=== PATIENT | female | born 1965 | race Caucasian/White ===

== ENCOUNTER 2016-08-21 14:09 | Emergency (ER) | payer BC ==
[~2016-08-21] VITALS: Ht 163.8 cm; Wt 140.8 kg
[~2016-08-21 14:09] MED LIST: ACET-1256 PO; DICL1GEL34 TOP; TRAM-10 PO
[2016-08-21 14:11] VITALS: TEMP 36.7; Ht 163.8 cm; Wt 140.8 kg
[2016-08-21] MEDS ORDERED: MoRPHine SULFATE 4 MG/ML 1 ML CARP\\VIAL IV STA (14:47)
[2016-08-21] MEDS ORDERED: ONDANSETRON INJ 2 MG/ML 2 ML VIAL IV STA (14:47)
[2016-08-21 15:08] LABS: BASO % 0.3 %; BASO ABS # 0.02 K/uL (0-0.2); COMPLETE YES; EOS % 1.1 %; HEMATOCRIT 39.2 % (37-47); IG% 0.1 %; LYMPH % 20.7 %; LYMPH ABS # 1.46 K/uL (1.2-3.4); MEAN CORPUSCULAR HEMOGLOBIN 29.2 pg (25-34); MEAN CORPUSCULAR HGB CONC 33.9 g/dl (32-36); MEAN PLATELET VOLUME 10.1 fL (7.4-10.4); MONO % 7.2 %; NEUT % 70.6 %; PLATELET COUNT 297 K/uL (130-400); RED BLOOD COUNT 4.56 M/uL (4.2-5.4); WHITE BLOOD COUNT 7.04 K/uL (4.8-10.8)
[2016-08-21 15:26] LABS: BUN/CREATININE RATIO 16.1 (10-20); CALCIUM 8.6 mg/dl (8.5-10.1); CREATININE 0.89 mg/dl (0.60-1.20); POTASSIUM 3.9 mmol/L (3.5-5.1)
[2016-08-21 15:30] LABS: PARTIAL THROMBOPLASTIN RATIO 0.9; PROTHROMBIN TIME (PATIENT) 10.4 SECONDS (9.0-12.0)
[2016-08-21] MEDS ORDERED: IRBE-37 PO (15:41)
--- NOTE | 2016-08-21 15:41 | DIAGNOSTIC IMAGING REPORT ---
LEFT LOWER EXTREMITY VENOUS DOPPLER CLINICAL HISTORY: Left calf pain status post knee surgery. COMPARISON STUDY: No previous studies for comparison. TECHNIQUE: Sonography of the deep venous system of the left lower extremity was performed. Compression and augmentation were evaluated. FINDINGS: The left common femoral, superficial femoral and popliteal veins were compressible. Augmentation was normal. Flow was shown within the deep calf vessels. This exam was compromised by suboptimal penetration. IMPRESSION: No evidence of deep venous thrombus within the left lower extremity although exam compromised by suboptimal penetration. Electronically signed by: Niels Henry M.D. 08/21/2016 3:40 PM Dictated Date/Time: 08/21/2016 3:39 PM
--- NOTE | 2016-08-21 15:52 | DIAGNOSTIC IMAGING REPORT ---
LEFT TIBIA/FIBULA 2 VIEWS ROUTINE CLINICAL HISTORY: L calf pain COMPARISON: None. DISCUSSION: The bones and joint spaces appear intact. There is no evidence of fracture, dislocation or bony disease. Degenerative change medial joint compartment of the left knee. Heel spur IMPRESSION: No acute process. Electronically signed by: Ricardo Mccann M.D. 08/21/2016 3:51 PM Dictated Date/Time: 08/21/2016 3:50 PM
[2016-08-21] MEDS ORDERED: TRAM-10 PO (15:57)
[2016-08-21 16:00] VITALS: BP 145/97; PULSE 92; O2SAT 97
--- NOTE | 2016-08-22 10:45 | EMERGENCY ROOM VISIT NOTE ---
ED Visit Note First contact with patient: 14:28 Chief Complaint: Left calf cramps and pain. History of Present Illness: Ms. King is a 50-year-old white female who ambulates into the ED complaining of left posterior leg pain and cramping. Historically patient reports in May 2016 she had left knee surgery performed to repair a meniscus injury. She reports postoperatively she has been doing well and had no complications from her surgery. She returned to work approximately one week ago and since that time she has been having pain in the gastrocnemius area of her left lower leg. She has been seen by her physical therapist who is been giving massage therapy and recommended that she come to the emergency department for evaluation of DVT. Currently she complains of a cramping pain in the left gastrocnemius. She does report her pain waxes and wanes in intensity. Currently she rates her discomfort 10/10. Her pain is minimally radiating into the popliteal area. Her pain worsens with palpation the gastrocnemius and ambulation. She has not identified any alleviating factors related to the pain. Integument Tylenol without relief of her discomfort. She denies any associated symptoms including fevers, chills, sweats, skin eruptions, skin color changes, recent direct trauma, leg swelling, leg weakness/ numbness/tingling, chest pain, palpitations, shortness of breath, previous clots , claudication. Review of Systems: As noted above in history of present illness. 8 body systems were reviewed and found to be negative as noted above. Past Medical History: As previously noted, hypertension, status post unspecified left shoulder surgery, right wrist surgery and cholecystectomy. Current Medications: Avapro, diclofenac gel, and Tylenol. Allergies to Medications: Patient denies. Social History: Patient is currently employed; she feels safe in her home environment; she denies tobacco and alcohol use. Physical Examination: Vital Signs: Date Time Temp Pulse Resp B/P Pulse Ox O2 Delivery O2 Flow Rate FiO2 08/21/16 16:00 92 20 145/97 97 Room Air 08/21/16 14:11 36.7 97 17 169/89 97 Room Air GENERAL: 50-year-old female in mild distress due to pain, nontoxic-appearing, afebrile and hemodynamically stable. NEUROLOGICAL: Awake, alert and oriented to person, place and time. Answering questions appropriately and following commands. Normal gait. Good hand eye coordination. No focal motor or sensory deficits. SKIN: Warm, dry and pink. No soft tissue eruptions or trauma noted. HEENT: Atraumatic and normocephalic. THORAX: Lungs sounds are clear to auscultation and equal bilaterally with symmetrical chest wall. No wheezing, rales or rhonchi. No crepitus, tenderness , subcutaneous air or deformities noted. HEART: Regular rate and rhythm. No gallops, rubs or murmurs are appreciated. LEFT LOWER EXTREMITY: No gross bony deformity. No shortening or malrotation. No tenderness in the hip, thigh, anterior/lateral/medial aspects of the knee. Mild tenderness in the popliteal area. Moderate tenderness throughout the proximal gastrocnemius to the level of the Achilles tendon. No tenderness throughout the ankle or foot. Full range of motion in flexion and extension of the knee and plantar flexion and dorsiflexion of the ankle. No dependent edema. No calf tenderness or cords. The foot was warm and pink and capillary refill is brisk. She is able to distinguish light sensations through all dermatomes of the leg and foot. ED Course: Patient is assessed as noted above. Laboratory Testing: Test 08/21/16 14:55 Range/Units White Blood Count 7.04 4.8-10.8 K/uL Red Blood Count 4.56 4.2-5.4 M/uL Hemoglobin 13.3 12.0-16.0 g/dL Hematocrit 39.2 37-47 % Mean Corpuscular Volume 86.0 80-100 fL Mean Corpuscular Hemoglobin 29.2 25-34 pg Mean Corpuscular Hemoglobin Concent 33.9 32-36 g/dl Platelet Count 297 130-400 K/uL Mean Platelet Volume 10.1 7.4-10.4 fL Neutrophils (%) (Auto) 70.6 % Lymphocytes (%) (Auto) 20.7 % Monocytes (%) (Auto) 7.2 % Eosinophils (%) (Auto) 1.1 % Basophils (%) (Auto) 0.3 % Neutrophils # (Auto) 4.96 1.4-6.5 K/uL Lymphocytes # (Auto) 1.46 1.2-3.4 K/uL Monocytes # (Auto) 0.51 0.11-0.59 K/uL Eosinophils # (Auto) 0.08 0-0.5 K/uL Basophils # (Auto) 0.02 0-0.2 K/uL RDW Standard Deviation 48.4 36.4-46.3 fL RDW Coefficient of Variation 15.3 11.5-14.5 % Immature Granulocyte % (Auto) 0.1 % Immature Granulocyte # (Auto) 0.01 0.00-0.02 K/uL Prothrombin Time 10.4 9.0-12.0 SECONDS Prothromb Time International Ratio 1.0 0.9-1.1 Activated Partial Thromboplast Time 24.6 21.0-31.0 SECONDS Partial Thromboplastin Ratio 0.9 Sodium Level 141 136-145 mmol/L Potassium Level 3.9 3.5-5.1 mmol/L Chloride Level 109 98-107 mmol/L Carbon Dioxide Level 21 21-32 mmol/L Anion Gap 11.0 3-11 mmol/L Blood Urea Nitrogen 14 7-18 mg/dl Creatinine 0.89 0.60-1.20 mg/dl Est Creatinine Clear Calc Drug Dose 106.0 ml/min Estimated GFR () 87.0 Estimated GFR (Non- 75.0 BUN/Creatinine Ratio 16.1 10-20 Random Glucose 93 70-99 mg/dl Calcium Level 8.6 8.5-10.1 mg/dl Total Bilirubin 0.4 0.2-1 mg/dl Direct Bilirubin 0.1 0-0.2 mg/dl Aspartate Amino Transf (AST/SGOT) 20 15-37 U/L Alanine Aminotransferase (ALT/SGPT) 25 12-78 U/L Alkaline Phosphatase 91 45-117 U/L Total Protein 7.7 6.4-8.2 gm/dl Albumin 3.7 3.4-5.0 gm/dl Left Lower Leg X-Rays: Were read by myself and the radiologist showing no acute fractures or dislocations. No bony disease. Degenerative changes of the medial joint compartment of the knee. Left Lower Extremity Venous Doppler Ultrasound: Was reviewed by myself and the radiologist showing no evidence of deep vein thrombus although he felt the study was suboptimal because of penetration. An IV lock was initiated and patient received 4 mg of morphine IV for pain and 4 mg of Zofran IV. Patient was reassessed multiple times during her stay in the emergency department. Patient's case was reviewed with Dr. Avalos; we agreed on diagnostic approach, treatment, disposition and plan. Patient was offered splinting, crutches and/or walker use and refused. Patient was educated about tonight's findings and instructed on her treatment plan; she verbalizes understanding and agreement with this plan. Clinical Impression: Left lower leg pain. Decision-Making: Initially my differential diagnosis I considered deep vein thrombus, fracture, abnormal bony growth, deconditioning and other causes. Disposition: Patient discharged home in stable condition accompanied by her mother; prior to departure she was reassessed and subjectively reported she was feeling better and rated her discomfort 3/10. Plan: Patient was prescribed Ultram 50 mg every 6 hours as needed for pain. Patient was encouraged to rest as much as possible. Patient was encouraged to call her orthopedic physician for follow-up care and treatment. Patient was encouraged return the ED for worsening pain, uncontrolled swelling, skin redness, fevers, leg weakness/numbness/tingling or any new/concerning symptoms.
== END 2016-08-21 16:08 | disposition home or self-care (01) ==
LOC: C.EDB 14:10 → C.EDD 16:08
DX: R25.2 Cramp and spasm (principal); M79.605 Pain in left leg; I10 Essential (primary) hypertension

== ENCOUNTER 2017-02-12 02:54 | Observation (INO) | payer BC ==
[~2017-02-12] VITALS: Ht 162.6 cm; Wt 142.5 kg
[~2017-02-12 02:54] MED LIST changes: +IRBE-37 PO
--- NOTE | 2017-02-12 03:24 | EMERGENCY ROOM VISIT NOTE ---
History Report prepared by Sangita: Luis Hancock Under the Supervision of: Dr. Gina Marx D.O. First contact with patient: 02:58 Chief Complaint: CARDIAC ASSESSMENT Stated Complaint: CARDIAC SYMPTOMS History of Present Illness The patient is a 51 year old female who presents to the Emergency Room with complaints of waning, left arm numbness and tingling and left-sided chest tightness that occurred prior to arrival. She currently rates her discomfort a 3 /10 in severity. 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 She reports that she was cleaning bathrooms and denies heavy lifting. The patient notes that as she was cleaning, her left arm started to go numb and tingle. She states that her discomfort then spread into her chest, and it began to feel tight. The patient reports that she did become short of breath, but she does not know if she experienced diaphoresis because she is always sweating. The patient notes that she has had similar symptoms years ago, and she was told it was an anxiety attack. She reports that she had a stress test completed years ago. The patient states that she has nothing at home that is causing her to have increased anxiety. She reports that her uncle of an RI at the age of 53. The patient notes that she does not have her cholesterol checked regularly, but she does take blood pressure medication and a baby aspirin daily. She states that she took her medication today. Nursing notes state the patient received 3 aspirins en route to the hospital. She reports that her discomfort has decreased since she has been at the hospital. The patient denies being sick within the last week. Source of History: patient Onset: prior to arrival Position: chest (left), arm (left) Symptom Intensity: 3/10 Quality: tingling (arm), numbness (arm), other (tightness - chest) Timing: other (waning) Associated Symptoms: + SOB Review of Systems See HPI for pertinent positives & negatives. A total of 10 systems reviewed and were otherwise negative. Past Medical & Surgical Medical Problems: (1) Chest pain (2) HTN (hypertension) (3) Kidney stone Surgical Problems: (1) Hernia (2) History of cholecystectomy Family History Cancer Hypertension Kidney disease Kidney stones Social History Smoking Status: Never Smoker Smokeless Tobacco Use: No Alcohol Use: occasionally Marital Status: single Housing Status: lives with family Occupation Status: employed Current/Historical Medications Scheduled Aspirin (Prema Aspirin Ec Low Dose), 1 TAB PO DAILY Irbesartan (Avapro), 150 MG PO QAM Allergies Coded Allergies: No Known Allergies (Verified , 06/10/16) Physical Exam Vital Signs Date Time Temp Pulse Resp B/P (MAP) Pulse Ox O2 Delivery O2 Flow Rate FiO2 02/12/17 04:23 91 19 106/55 97 Room Air 02/12/17 04:08 87 17 124/63 97 Room Air 02/12/17 03:22 36.8 97 25 134/96 100 Room Air 02/12/17 03:22 99 Room Air 02/12/17 03:10 100 Room Air 02/12/17 03:10 99 27 121/91 98 Room Air 02/12/17 03:02 105 Physical Exam General: Obese female who is tearful on exam. HEENT: Head - normocephalic and atraumatic Pupils are equal, round, and reactive to light. Extraocular eye muscles are intact, and sclera are anicteric. Nose - moist nasal mucosa without discharge. Mouth - moist buccal mucosa. Oropharynx is nonerythematous and there is no tonsillar exudate or edema noted. Neck: Supple; no JVD, nuchal rigidity, cervical lymphadenopathy, or auscultated bruits. Heart: Regular rate and rhythm. There is a normal S1 and S2 with no murmurs, clicks, or gallops appreciated. Heart sounds are distant secondary to body habitus. Lungs: Clear to auscultation bilaterally with no wheezes, rales, or rhonchi. Abdomen: Soft, completely nontender, nondistended, with good bowel sounds. There are no palpable pulsatile masses or hepatosplenomegaly. There is no guarding, rigidity, or rebound noted. Extremities: No evidence of cyanosis, clubbing, or edema. There are easily palpable peripheral pulses. Skin: warm and dry with good turgor and no rashes. Medical Decision & Procedures ER Provider Diagnostic Interpretation: X-ray results as stated below per interpretation by me: Chest One View: Borderline cardiomegaly, no pleural effusion, no cardio infiltrate Laboratory Results 02/12/17 02:50 Red Blood Count 4.57, Mean Corpuscular Volume 87.7, Mean Corpuscular Hemoglobin 28.9, Mean Corpuscular Hemoglobin Concent 32.9, Mean Platelet Volume 10.3, Neutrophils (%) (Auto) 63.8, Lymphocytes (%) (Auto) 24.1, Monocytes (%) (Auto) 8.1, Eosinophils (%) (Auto) 3.6, Basophils (%) (Auto) 0.3, Neutrophils # (Auto) 4.55, Lymphocytes # (Auto) 1.72, Monocytes # (Auto) 0.58, Eosinophils # (Auto) 0.26, Basophils # (Auto) 0.02 02/12/17 02:50 Test 02/12/17 02:50 White Blood Count 7.14 K/uL (4.8-10.8) Red Blood Count 4.57 M/uL (4.2-5.4) Hemoglobin 13.2 g/dL (12.0-16.0) Hematocrit 40.1 % (37-47) Mean Corpuscular Volume 87.7 fL (80-100) Mean Corpuscular Hemoglobin 28.9 pg (25-34) Mean Corpuscular Hemoglobin Concent 32.9 g/dl (32-36) Platelet Count 299 K/uL (130-400) Mean Platelet Volume 10.3 fL (7.4-10.4) Neutrophils (%) (Auto) 63.8 % Lymphocytes (%) (Auto) 24.1 % Monocytes (%) (Auto) 8.1 % Eosinophils (%) (Auto) 3.6 % Basophils (%) (Auto) 0.3 % Neutrophils # (Auto) 4.55 K/uL (1.4-6.5) Lymphocytes # (Auto) 1.72 K/uL (1.2-3.4) Monocytes # (Auto) 0.58 K/uL (0.11-0.59) Eosinophils # (Auto) 0.26 K/uL (0-0.5) Basophils # (Auto) 0.02 K/uL (0-0.2) RDW Standard Deviation 49.7 fL (36.4-46.3) RDW Coefficient of Variation 15.5 % (11.5-14.5) Immature Granulocyte % (Auto) 0.1 % Immature Granulocyte # (Auto) 0.01 K/uL (0.00-0.02) Anion Gap 5.0 mmol/L (3-11) Est Creatinine Clear Calc Drug Dose 101.4 ml/min Estimated GFR () 80.8 Estimated GFR (Non- 69.8 BUN/Creatinine Ratio 16.1 (10-20) Calcium Level 8.2 mg/dl (8.5-10.1) Total Bilirubin 0.2 mg/dl (0.2-1) Aspartate Amino Transf (AST/SGOT) 14 U/L (15-37) Alanine Aminotransferase (ALT/SGPT) 24 U/L (12-78) Alkaline Phosphatase 87 U/L (45-117) Total Creatine Kinase 100 U/L (26-192) Creatine Kinase MB 1.1 ng/ml (0.5-3.6) Creatine Kinase MB Ratio 1.1 (0-3.0) Troponin I < 0.015 ng/ml (0-0.045) Total Protein 7.7 gm/dl (6.4-8.2) Albumin 3.3 gm/dl (3.4-5.0) Globulin 4.4 gm/dl (2.5-4.0) Albumin/Globulin Ratio 0.7 (0.9-2) Thyroid Stimulating Hormone (TSH) 1.680 uIu/ml (0.300-4.500) Laboratory results per my review. Medications Administered Medications (Trade) Dose Ordered Sig/Yael Route Start Time Stop Time Status Last Admin Dose Admin Nitroglycerin (Nitrostat Tab) 0.4 mg Q5M STAT SL 02/12/17 03:40 02/12/17 03:41 DC 02/12/17 03:48 0.4 MG Procedure 0340: Ordered Nitroglycerin 0.4 mg SL. Repeat as needed. Hold with blood pressure below 100. ECG Indication: chest pain Rate (beats per minute): 103 Rhythm: sinus tachycardia Findings: ST depression (Inferior and lateral), no ectopy Comparison ECG Date: 06/03/16 Change: no significant change ED Course 0313: The patient was evaluated in room B06. A complete history and physical examination were performed. Nursing notes and previous electronic medical records were reviewed. IV lock was established and labs were drawn as above. The patient had a twelve-lead EKG as described above. She had a portable chest x-ray. 0340: Ordered Nitroglycerin 0.4 mg SL. The patient continued to rate her pain as a 3/4. She was given a second sublingual nitroglycerin 0438: I reevaluated the patient, and she states her pain is still a 1-2/10 in severity. She reports that it is much better than when she arrived. I discussed findings and results with the patient. She verbalized agreement of the treatment plan. 0448: I spoke with Dr. Ortiz of the [facility] Hospitalist Service. The patient will be evaluated for further management and care. Medical Decision The patient is a 51 year old female who presents to the ED with left arm numbness and tingling and chest tightness. Differential diagnosis includes STEMI , ACS, GERD, anxiety. Lab results show: no leukocytosis, stable H&H, Normal renal function, Normal glucose, Normal TSH and LFTs, negative cardiac enzymes The patient does have some risk factors for heart disease. She is obese with uncontrolled hypertension and a family history of heart disease. She does not routinely have her cholesterol levels checked. She developed chest discomfort with exertion while at work. The discomfort seemed to decrease with rest and subsided with nitroglycerin. The patient describes having previous cardiac stress testing one in 10 years ago. I discussed the case with the [facility] Hospitalist and they will evaluate for further management. Consults Time Called: [phone] Consulting Physician: Dr. Ortiz, [facility] Hospitalist Returned Call: [phone] Ortiz of the [facility] Hospitalist Service. The patient will be evaluated for further management and care. Impression Primary Impression: Left sided chest pain Scribe Attestation The scribe's documentation has been prepared under my direction and personally reviewed by me in its entirety. I confirm that the note above accurately reflects all work, treatment, procedures, and medical decision making performed by me. Departure Information Dispostion Being Evaluated By Hospitalist Referrals Pierre Torres M.D. (PCP) Patient Instructions My [facility]
[2017-02-12 03:32] LABS: BASO % 0.3 %; BASO ABS # 0.02 K/uL (0-0.2); COMPLETE YES; EOS % 3.6 %; HEMATOCRIT 40.1 % (37-47); IG% 0.1 %; LYMPH % 24.1 %; LYMPH ABS # 1.72 K/uL (1.2-3.4); MEAN CELL VOLUME 87.7 fL (80-100); MEAN CORPUSCULAR HEMOGLOBIN 28.9 pg (25-34); MEAN CORPUSCULAR HGB CONC 32.9 g/dl (32-36); MEAN PLATELET VOLUME 10.3 fL (7.4-10.4); MONO % 8.1 %; NEUT % 63.8 %; PLATELET COUNT 299 K/uL (130-400); RED BLOOD COUNT 4.57 M/uL (4.2-5.4); WHITE BLOOD COUNT 7.14 K/uL (4.8-10.8)
[2017-02-12] MEDS ORDERED: NITROGLYCERIN 0.4 MG SL PER TAB CHARGE SL STA (03:40)
[2017-02-12 03:53] LABS: ALT/SGPT 24 U/L (12-78); AST/SGOT 14 U/L (15-37); BLOOD UREA NITROGEN 15 mg/dl (7-18); BUN/CREATININE RATIO 16.1 (10-20); CALCIUM 8.2 mg/dl (8.5-10.1); CARBON DIOXIDE 24 mmol/L (21-32); CHLORIDE 113 mmol/L (98-107); CREATININE 0.94 mg/dl (0.60-1.20); GLUCOSE 87 mg/dl (70-99); POTASSIUM 3.6 mmol/L (3.5-5.1); SODIUM 142 mmol/L (136-145)
[2017-02-12 04:03] LABS: ALB/GLOB RATIO 0.7 (0.9-2); ALKALINE PHOSPHATASE 87 U/L (45-117); CKMB/CK RATIO 1.1 (0-3.0)
[2017-02-12] MEDS ORDERED: ASPI1TAB2 PO (04:17)
--- NOTE | 2017-02-12 04:56 | History and Physical ---
History & Physical Date & Time of Service: Feb 12, 2017 at 04:51 Chief Complaint: Cardiac Symptoms Primary Care Physician: Pierre Torres M.D. History of Present Illness Source: patient 51 y/o F Hx obesity, HTN. Presents with CP which began as paresthesias in her L arm followed by central and L chest pain. This occurred while she was working overnight. She had accompanying SOB - denies N/V, diaphoresis. Past Medical/Surgical History Medical Problems: (1) HTN (hypertension) Status: Chronic (2) Kidney stone Status: Resolved Family History Cancer Hypertension Kidney disease Kidney stones Maternal uncle with CAD/LA Social History Smoking Status: Never Smoker Smokeless Tobacco Use: No Marital Status: single Occupational Status: employed Immunizations History of Influenza Vaccine: No History of Tetanus Vaccine?: Yes Tetanus Immunization Date: November 07, 2005 History of Pneumococcal: No History of Hepatitis B Vaccine: No Multi-Drug Resistant Organisms History of MDRO: No Allergies Coded Allergies: No Known Allergies (Verified , 06/10/16) Home Medications Scheduled Aspirin (Prema Aspirin Ec Low Dose), 1 TAB PO DAILY Irbesartan (Avapro), 150 MG PO QAM Review of Systems Constitutional: No fever, No chills, No sweats Eyes: No worsening of vision ENT: No hearing loss Respiratory: No cough, No wheezing Cardiovascular: + chest pain, No orthopnea, No PND Abdomen: No pain, No nausea, No vomiting Musculoskeletal: No joint pain Genitourinary - Female: No dysuria, No urinary frequency, No urinary urgency Neurologic: No memory loss, No paralysis, No weakness Psychiatric: No depression symptoms Endocrine: No fatigue Hematologic / Lymphatic: No abnormal bleeding/bruising Integumentary: No rash Allergic / Immunologic: No environmental allergies Physical Exam Vital Signs Date Time Temp Pulse Resp B/P (MAP) Pulse Ox O2 Delivery O2 Flow Rate FiO2 02/12/17 04:23 91 19 106/55 97 Room Air 02/12/17 04:08 87 17 124/63 97 Room Air 02/12/17 03:22 36.8 97 25 134/96 100 Room Air 02/12/17 03:22 99 Room Air 02/12/17 03:10 100 Room Air 02/12/17 03:10 99 27 121/91 98 Room Air 02/12/17 03:02 105 General Appearance: WD/WN, no apparent distress, + obese Head: normocephalic Eyes: normal inspection ENT: normal ENT inspection, pharynx normal Neck: supple Respiratory/Chest: chest non-tender, lungs clear Cardiovascular: regular rate, rhythm, no edema, no gallop Abdomen/GI: normal bowel sounds, non tender, soft Back: normal inspection, no CVA tenderness, no muscle spasm, normal range of motion Extremities/Musculoskelatal: normal inspection, no calf tenderness, normal capillary refill, no pedal edema, normal range of motion Neurologic/Psych: bit shaver II-XII nml as tested, no motor/sensory deficits, alert, normal mood/affect, normal reflexes, oriented x 3 Skin: normal color, warm/dry, no rash Diagnostics Laboratory Results Results Past 24 Hours Test 02/12/17 02:50 Range/Units White Blood Count 7.14 4.8-10.8 K/uL Red Blood Count 4.57 4.2-5.4 M/uL Hemoglobin 13.2 12.0-16.0 g/dL Hematocrit 40.1 37-47 % Mean Corpuscular Volume 87.7 80-100 fL Mean Corpuscular Hemoglobin 28.9 25-34 pg Mean Corpuscular Hemoglobin Concent 32.9 32-36 g/dl Platelet Count 299 130-400 K/uL Mean Platelet Volume 10.3 7.4-10.4 fL Neutrophils (%) (Auto) 63.8 % Lymphocytes (%) (Auto) 24.1 % Monocytes (%) (Auto) 8.1 % Eosinophils (%) (Auto) 3.6 % Basophils (%) (Auto) 0.3 % Neutrophils # (Auto) 4.55 1.4-6.5 K/uL Lymphocytes # (Auto) 1.72 1.2-3.4 K/uL Monocytes # (Auto) 0.58 0.11-0.59 K/uL Eosinophils # (Auto) 0.26 0-0.5 K/uL Basophils # (Auto) 0.02 0-0.2 K/uL RDW Standard Deviation 49.7 36.4-46.3 fL RDW Coefficient of Variation 15.5 11.5-14.5 % Immature Granulocyte % (Auto) 0.1 % Immature Granulocyte # (Auto) 0.01 0.00-0.02 K/uL Sodium Level 142 136-145 mmol/L Potassium Level 3.6 3.5-5.1 mmol/L Chloride Level 113 98-107 mmol/L Carbon Dioxide Level 24 21-32 mmol/L Anion Gap 5.0 3-11 mmol/L Blood Urea Nitrogen 15 7-18 mg/dl Creatinine 0.94 0.60-1.20 mg/dl Est Creatinine Clear Calc Drug Dose 101.4 ml/min Estimated GFR () 80.8 Estimated GFR (Non- 69.8 BUN/Creatinine Ratio 16.1 10-20 Random Glucose 87 70-99 mg/dl Calcium Level 8.2 8.5-10.1 mg/dl Total Bilirubin 0.2 0.2-1 mg/dl Aspartate Amino Transf (AST/SGOT) 14 15-37 U/L Alanine Aminotransferase (ALT/SGPT) 24 12-78 U/L Alkaline Phosphatase 87 45-117 U/L Total Creatine Kinase 100 26-192 U/L Creatine Kinase MB 1.1 0.5-3.6 ng/ml Creatine Kinase MB Ratio 1.1 0-3.0 Troponin I < 0.015 0-0.045 ng/ml Total Protein 7.7 6.4-8.2 gm/dl Albumin 3.3 3.4-5.0 gm/dl Globulin 4.4 2.5-4.0 gm/dl Albumin/Globulin Ratio 0.7 0.9-2 Thyroid Stimulating Hormone (TSH) 1.680 0.300-4.500 uIu/ml EKG Sinus tach at 100BPM - no acute ischemic changes Impression Assessment and Plan 51 y/o F Hx obesity, HTN. Presents with CP which began as paresthesias in her L arm followed by central and L chest pain. This occurred while she was working overnight. She had accompanying SOB - denies N/V, diaphoresis. 1) CP - pt admitted to telemetry - will obtain serial enzymes - will obtain a Ddimer as she is tachycardic- provided with ASA, statin and low-dose B juan david 2) HTN - cont ARB - B juan david added 3) Pt is morbidly obese and would benefit from nutritional counseling Full code - Heparin prophylaxis Total time for this admit including reviews of labs, meds, EKG, records - discussion with pt and ER attending - 33 min Level of Care Telemetry Resuscitation Status FULL RESUSCITATION VTE Prophylaxis VTE Risk Assessment Done? Y/N: Yes Risk Level: Low Given or contraindicated: Unfractionated heparin SQ
[2017-02-12] MEDS ORDERED: MoRPHine SULFATE 2 MG/ML CARP IV PRN (05:00)
[2017-02-12] MEDS ORDERED: ACETAMINOPHEN 325 MG TAB PO PRN (05:00)
[2017-02-12] MEDS ORDERED: MAGNESIUM HYDROXIDE SUSP 30 ML UDC PO PRN (05:00)
[2017-02-12] MEDS ORDERED: POLYETHYLENE (MIRALAX) 17 GM PACK PO PRN (05:00)
[2017-02-12] MEDS ORDERED: ONDANSETRON INJ 2 MG/ML 2 ML VIAL IV PRN (05:00)
[2017-02-12] MEDS ORDERED: NITROGLYCERIN 0.4 MG SL PER TAB CHARGE SL PRN (05:00)
[2017-02-12] MEDS ORDERED: ALUMINUM/MAGNESIUM/SIMETH (MAALOX MAX) 30 ML UDC PO PRN (05:00)
[2017-02-12 05:25] VITALS: BP 108/77; PULSE 89; TEMP 36.7; O2SAT 97; Ht 162.6 cm; Wt 142.5 kg
[2017-02-12] MEDS ORDERED: IV FLUIDS COMPLETED PRN (05:30)
--- NOTE | 2017-02-12 06:32 | DIAGNOSTIC IMAGING REPORT ---
CHEST ONE VIEW PORTABLE CLINICAL HISTORY: cp dyspnea COMPARISON STUDY: No previous studies for comparison. FINDINGS: Mild cardia megaly. The lungs are clear. Diaphragms are smooth. IMPRESSION: Mild cardiomegaly. The above report was generated using voice recognition software. It may contain grammatical, syntax or spelling errors. Electronically signed by: Ricardo Mccann M.D. 02/12/2017 6:31 AM Dictated Date/Time: 02/12/2017 6:31 AM
[2017-02-12 07:14] VITALS: BP 147/88; PULSE 93; TEMP 36.7; O2SAT 95
[2017-02-12 07:15] LABS: INR 0.9 (0.9-1.1)
[2017-02-12] MEDS: HEPARIN SOD 5000 UNIT/0.5 ML CARP SQ SCH ×2 (08:35→16:57)
[2017-02-12] MEDS ORDERED: ASPIRIN 81 MG ECTAB PO SCH (09:00)
[2017-02-12] MEDS ORDERED: IRBESARTAN 150 MG TAB PO SCH (09:00)
[2017-02-12] MEDS ORDERED: METOPROLOL TARTRATE 25 MG TAB PO SCH (09:00)
[2017-02-12 11:08] VITALS: BP 112/71; PULSE 74; TEMP 36.8; O2SAT 97
[2017-02-12] MEDS ORDERED: ATROPINE SULFATE 0.1 MG/ML 5ML SYR ONE (14:13)
[2017-02-12] MEDS ORDERED: METOPROLOL TARTRATE 1 MG/ML VIAL ONE (14:13)
[2017-02-12] MEDS ORDERED: DOBUTamine HCL 12.5 MG/ML 20 ML VIAL ONE (14:13)
[2017-02-12 15:50] VITALS: BP 122/77; PULSE 80; TEMP 36.6; O2SAT 90
[2017-02-12] MEDS ORDERED: PERFLUTREN LIPID MICROSPHERE (DEFINITY) IV ONE (15:55)
--- NOTE | 2017-02-12 16:28 | Discharge Instructions ---
Discharge Instructions Date of Service Feb 12, 2017. Admission Reason for Admission: Chest Pain Discharge Discharge Diagnosis / Problem: Chest pain, likely related to scar tissue vs thoracic outlet syndrome Discharge Goals Goal(s): Decrease discomfort, Improve function, Increase independence Activity Recommendations Activity Limitations: resume your previous activity . Instructions / Follow-Up Instructions / Follow-Up Dr. Torres in 1-2 weeks if recurring chest or arm pain Your stress test with ECHO was negative, making it less likely that this pain is related to your heart. Current Hospital Diet Patient's current hospital diet: AHA Diet (Heart Healthy) Discharge Diet Recommended Diet: Regular Diet Pending Studies Studies pending at discharge: no Medical Emergencies . Who to Call and When: Medical Emergencies: If at any time you feel your situation is an emergency, please call 911 immediately. . Non-Emergent Contact Non-Emergency issues call your: Primary Care Provider . . "Provider Documentation" section prepared by Adamaris Dietrich. . VTE Core Measure Inpt VTE Proph given/why not?: Unfractionated heparin SQ
--- NOTE | 2017-02-12 16:29 | Discharge Summary ---
Discharge Summary Date of Service Feb 12, 2017. Discharge Summary Admission Date: Feb 12, 2017 at 04:49 Discharge Date: Feb 12, 2017 Discharge Disposition: Home Principal Diagnosis: Chest pain, likely related to scar tissue vs thoracic outlet syndrome Problems/Secondary Diagnoses: HTN Hx of renal stones Morbid obesity Immunizations: Have You Had Influenza Vaccine: No History of Tetanus Vaccine?: Yes Tetanus Immunization Date: November 07, 2005 History of Pneumococcal: No History of Hepatitis B Vaccine: No Procedures: dobutamine stress ECHO 02/12 Medication Reconciliation Continued Medications: Aspirin (Prema Aspirin Ec Low Dose) 81 Mg Tab 1 TAB PO DAILY, 3 Refills Irbesartan (Avapro) 150 Mg Tab 150 MG PO QAM, TAB Discharge Exam Pt is feeling overall improved. She has had no return of chest pain or LUE pain. Has been tolerating PO without issue. Pt denies fever, SOB, chest pain, abd pain, n/v/c/d, LE pain or swelling. Pt states that at onset of pain, she was cleaning at work with her R hand, but not doing anything strenuous. She did feel anxious when this happened, but no SOB, n/v/diaphoresis. Prior to onset she was having a usual day at work without feeling fatigued or otherwise limited. 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 Physical Exam: General Appearance: no apparent distress, + obese Respiratory/Chest: normal breath sounds, no respiratory distress, + pertinent finding (L sided chest pain reproducible in upper lateral quadrant) Cardiovascular: regular rate, rhythm, no edema Abdomen / GI: non tender, soft Extremities: no calf tenderness, no pedal edema Neurologic/Psychiatric: alert, normal mood/affect, oriented x 3 Skin: normal color, warm/dry Hospital Course Per ED H&P: The patient is a 51 year old female who presents to the Emergency Room with complaints of waning, left arm numbness and tingling and left-sided chest tightness that occurred prior to arrival. She currently rates her discomfort a 3/10 in severity. 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 She reports that she was cleaning bathrooms and denies heavy lifting. The patient notes that as she was cleaning, her left arm started to go numb and tingle. She states that her discomfort then spread into her chest, and it began to feel tight. The patient reports that she did become short of breath, but she does not know if she experienced diaphoresis because she is always sweating. The patient notes that she has had similar symptoms years ago, and she was told it was an anxiety attack. She reports that she had a stress test completed years ago. The patient states that she has nothing at home that is causing her to have increased anxiety. She reports that her uncle of an OK at the age of 53. The patient notes that she does not have her cholesterol checked regularly, but she does take blood pressure medication and a baby aspirin daily. She states that she took her medication today. Nursing notes state the patient received 3 aspirins en route to the hospital. She reports that her discomfort has decreased since she has been at the hospital. The patient denies being sick within the last week. Hospital course: Pt denies SOB to me, however did report this to other providers Chest pain: Reproducible on exam, possibly related to scar tissue from prior L shoulder surgery vs thoracic outlet syndrome Trops neg x2 EKG WNL, tele monitor WNL CBC, PRP, TSH, ddimer neg/WNL CXR neg Pt states she could not walk on an incline for stress testing, dobutamine stress ECHO was neg HTN: stable, continue home meds Total Time Spent: Greater than 30 minutes This includes examination of the patient, discharge planning, medication reconciliation, and communication with other providers. Discharge Instructions Please refer to the electronic Patient Visit Report (Discharge Instructions) for additional information. Follow-Up Dr. Torres in 1-2 weeks if recurring chest or arm pain Additional Copies To Pierre Torres M.D.
[2017-02-12 17:06] VITALS: BP 122/77; PULSE 80; TEMP 36.6; O2SAT 90
--- NOTE | 2017-02-12 19:10 | DOBUTAMINE ECHO ---
*NOTICE TO RECEIVING LIBERTARIAN AGENCY This information is strictly Confidential and protected under [place] law. [place] law prohibits you from making any further disclosure of this information unless further disclosure is expressly permitted by the written consent of the person to whom it pertains or is authorized by law. A general authorization for the release of medical or other information is not sufficient for this purpose. Hospital accepts no responsibility if the information is made available to any other person, INCLUDING THE PATIENT. Interpretation Summary * Name: LINDA HARRINGTON Study Date: 02/12/2017 01:13 PM BP: 101/38 mmHg * Patient Location: C.2T\S\S230\S\1 HR: 81 * : 1965 (M/d/yyyy) Gender: Female Height: 64 in * Age: 51 yrs Ethnicity: CA Weight: 314 lb * Ordering Physician: Adamaris Dietrich * Performed By: Kelly Cook * * Reason For Study: CHEST PAIN * BSA: 2.4 m2 * -- Conclusions -- * Dobutamine Stress Echo: * 1. Negative Dobutamine stress echo for ischemia at 84 % MPHR. * 2. Nondiagnostic Dobutamine ECG as target heart rate was not attained. * 3. Appropriate blood pressure response. * 4. No arrhythmia. * 5. Chest pain reported at peak dose. * 6. Technically difficult study, enhanced with IV Definity. * Echo: * 1. Normal left ventricular size and systolic function. EF 60-65%. No regional wall motion abnormalities. No left ventricular hypertrophy. * 2. No significant valvular abnormalities visualized, but valves not well seen. Procedure Details * DOBUTAMINE ECHO, CPT#[id number] * ECHO DOPPLER, CPT #[id number] * ECHO COLOR FLOW, CPT #[id number] * The study was technically difficult with many images being suboptimal in quality. * A contrast injection of Definity was performed to improve assessment of LV function. * Contrast was injected into an intravenous site in the left arm. * One vial of Definity ultrasound contrast was diluted in normal saline to a total volume of 10 ml. A total of '10' ml of solution was administered during imaging. * Lot # [id number] of Definity utilized for procedure. * Expiration date 02/13. * The attending nurse who injected the contrast agent was MARU LEE RN. Left Ventricle * The left ventricle is normal in size. * There is normal left ventricular wall thickness. * Left ventricular systolic function is normal. * Resting wall motion: Normal. Stress wall motion: Appropriate increase in Left ventricular systolic function and decrease in cavity size. No stress induced segmental wall motion abnormalities. * The left ventricular ejection fraction increases normally with stress. The left ventricular end-systolic cavity size reduces post-stress (normal response). The left ventricular wall motion with stress is normal. Right Ventricle * The right ventricle is not well visualized. Atria * The left atrial size is normal. * Right atrium not well visualized. Mitral Valve * The mitral valve is grossly normal. * There is no mitral valve stenosis. * Significant mitral regurgitation is absent. Tricuspid Valve * The tricuspid valve is not well visualized. * There is no tricuspid stenosis. * Significant tricuspid regurgitation is absent. Aortic Valve * The aortic valve is not well visualized. * No hemodynamically significant valvular aortic stenosis. * There is no significant aortic regurgitation. Pulmonic Valve * The pulmonary valve is inadequately visualized, but the Doppler data is adequate for interpretation. * There is no significant pulmonary regurgitation. Great Vessels * The aortic root is normal size. * Ascending aorta of normal dimension * Normal IVC size. Pericardium * There is no pericardial effusion. Stress Parameters * NSR at [address] abnormality. * Stress ECG: No ST changes. No arrhythmias. * No arrhythmia were noted with stress. * The stress portion of this study was personally supervised by the undersigned interpreting physician. * Rest heart rate was '81' BPM. * Rest blood pressure was '101/38' * Maximum heart rate achieved was 142 bpm. * Maximum heart rate was 84 % of maximum age-predicted heart rate. * Maximum blood pressure was '149/75' * Maximum Dobutamine infusion rate was '50' mcg/kg/min. * A total of 0.5 mg of intravenous Atropine was used to supplement Dobutamine for heart rate response. * Dobutamine infusion was terminated due to patient request * A total of 7.5 mg of IV Metoprolol was administered to reverse Dobutamine-induced tachycardia. * Target Heart Rate was not achieved due to chest pain. * The patient exhibited chest pain during the drug infusion. * The drug infusion was stopped due to chest pain. Left Ventricular Diastolic Function * Diastolic dysfunction, Grade II (pseudonormalization pattern). MMode 2D Measurements and Calculations IVSd 1.1 cm IVSs 1.6 cm LVIDd 4.3 cm LVIDs 2.6 cm LVPWd 0.98 cm LVPWs 1.5 cm IVS/LVPW 1.2 FS 38.8 % EDV(Teich) 83.6 ml ESV(Teich) 25.6 ml EF(Teich) 69.4 % EDV(cubed) 80.2 ml ESV(cubed) 18.4 ml EF(cubed) 77.1 % % IVS thick 38.6 % % LVPW thick 52.8 % LV mass(C)d 155.5 grams LV mass(C)dI 65.6 grams/m\S\2 LV mass(C)s 140.9 grams LV mass(C)sI 59.5 grams/m\S\2 SV(Teich) 58.1 ml SI(Teich) 24.5 ml/m\S\2 SV(cubed) 61.8 ml SI(cubed) 26.1 ml/m\S\2 Ao root diam 3.5 cm Ao root area 9.6 cm\S\2 ACS 1.6 cm LA dimension 3.8 cm asc Aorta Diam 3.2 cm LA/Ao 1.1 LVOT diam 2.3 cm LVOT area 4.1 cm\S\2 Doppler Measurements and Calculations MV E max jennifer 90.7 cm/sec MV A max jennifer 87.3 cm/sec MV E/A 1.0 MV dec time 0.25 sec Ao V2 max 125.7 cm/sec Ao max PG 6.3 mmHg Ao max PG (full) 1.6 mmHg YOHANA(V,A) 3.6 cm\S\2 YOHANA(V,D) 3.6 cm\S\2 LV V1 max PG 4.8 mmHg LV V1 max 109.1 cm/sec PA V2 max 90.2 cm/sec PA max PG 3.3 mmHg
== END 2017-02-12 17:56 | disposition home or self-care (01) ==
LOC: EDBD 02:54 → C.EDB 02:58 → C.2T 04:49 → ENRESERV 05:08
PROVIDERS: ADMIT Internal Medicine; ATTEND Family Medicine
DX: R07.9 Chest pain, unspecified (principal); R20.2 Paresthesia of skin; M79.602 Pain in left arm; I10 Essential (primary) hypertension; E66.01 Morbid (severe) obesity due to excess calories

== ENCOUNTER → 2017-05-25 | Day surgery (SDC) | payer BC ==
[2017-05-12 13:49] VITALS: Ht 162.6 cm; Wt 136.4 kg
[~2017-05-25] VITALS: Ht 162.6 cm; Wt 136.4 kg
[~2017-05-25] MED LIST changes: -ACET-1256 PO; -DICL1GEL34 TOP; +FENTANYL CITRATE INJ 50 MCG/1 ML 2 ML VIAL ONE; -IRBE-37 PO; +LIDOCAINE HCL 2% 2 ML VIAL (20MG/ML) ONE; +LISI20TA3 PO; +OMEG10007 PO; +PRLSR20 PO; +PROPOFOL IV EMULSION 10 MG/ML 20 ML VIAL IV ONE; +SODIUM CHLORIDE 0.9% 500ML 500 ML IV ONE; -TRAM-10 PO
--- NOTE | 2017-05-25 12:57 | Endo History and Physical ---
History & Physical Date of Service: May 25, 2017. Chief Complaint: dysphagia Referring Physician: Dr. Julita Porter History of Present Illness dysphagia; mostly solids; #8 wt loss Past Surgical History Hx Cardiac Surgery: No Hx Internal Defibrillator: No Hx Pacemaker: No Hx Abdominal Surgery: Yes (CIARA, HERNIA REPAIR) Hx of Implantable Prosthesis: No Hx Post-Op Nausea and Vomiting: No Hx Cancer Surgery: No Hx Thoracic Surgery: No Hx Orthopedic: Yes (LT SHOULDER, LT MENISCUS REPAIR) Hx Urinary Tract Surgery: Yes (LITHOTRIPSY) Family History None Social History Smoking Status: Never Smoker Hx Substance Use: No Hx Alcohol Use: No Allergies Coded Allergies: No Known Allergies (Verified , 05/12/17) Current Medications Reported Home Medications Medications Dose Route/Sig Max Daily Dose Days Date Category Prilosec (Omeprazole) 20 Mg Capcr 40 Mg PO DAILY 05/25/17 Reported Prinivil (Lisinopril) 20 Mg Tab 20 Mg PO QAM 05/12/17 Reported [place]-3 (Fish Oil) 1 Ea Cap 2 Cap PO BID 05/12/17 Reported Vital Signs Weight (Kilograms): 136.36 Height (Feet): 5 Height (Inches): 4 Date Time Temp Pulse Resp B/P (MAP) Pulse Ox O2 Delivery O2 Flow Rate FiO2 05/25/17 12:36 36.7 90 20 123/70 (87) 98 Room Air Physical Exam General Appearance: WD/WN, no apparent distress Respiratory/Chest: Auscultation: breath sounds normal Cardiovascular: Heart Auscultation: RRR Abdomen: Bowel Sounds: normal Inspection & Palpation: soft, non-distended, no tenderness, guarding & rebound Assessment and Plan EGD with possible bx/dilation as needed yazmin
--- NOTE | 2017-05-25 13:30 | Discharge Instructions ---
Endoscopy Patient Instructions Date / Procedure(s) Performed May 25, 2017. EGD Allergy Information Coded Allergies: No Known Allergies (Verified , 05/12/17) Discharge Date / Findings May 25, 2017. HH; SSBE; esophagitis Medication Instructions Stopped Medication(s): last Fish oil Thursday Restart Stopped Medication(s): Reported Home Medications Medications Dose Route/Sig Max Daily Dose Days Date Category Prilosec (Omeprazole) 20 Mg Capcr 40 Mg PO DAILY 05/25/17 Reported Prinivil (Lisinopril) 20 Mg Tab 20 Mg PO QAM 05/12/17 Reported [place]-3 (Fish Oil) 1 Ea Cap 2 Cap PO BID 05/12/17 Reported Increase Prilosec to 40 mg twice daily for 4 months; repeat EGD in 3 months Reported Home Medications Medications Dose Route/Sig Max Daily Dose Days Date Category Prilosec (Omeprazole) 20 Mg Capcr 40 Mg PO DAILY 05/25/17 Reported Prinivil (Lisinopril) 20 Mg Tab 20 Mg PO QAM 05/12/17 Reported [place]-3 (Fish Oil) 1 Ea Cap 2 Cap PO BID 05/12/17 Reported Increase prilosec to 40mg twice daily for 4 months- repeat EGD in 3 months Provider Instructions Activity Restrictions - No exercising or heavy lifting for 24 hours. - Do not drink alcohol the day of the procedure. - Do not drive a car or operate machinery until the day after the procedure. - Do not make any important decisions or sign important papers in 24 hours after the procedure. Following Day: - Return to full activity which may include returning to work/school. Diet Start your diet with liquids and light foods (jello, soup, juice, toast). Then eat your usual diet if not nauseated. Treatment For Common After Affects For mild abdominal pain, bloating, or excessive gas: - Rest - Eat lightly - Lie on right side Follow-Up Information Follow-up with Dr. Julita Porter as scheduled Anesthesia Information What You Should Know You have had a procedure that required some medicine to reduce anxiety and discomfort. This treatment is called moderate sedation. After receiving the treatment, you may be sleepy, but you will be able to breathe on your own. The effects of the treatment may last for several hours. Follow these instructions along with Activity/Diet recommendations noted above: * Do NOT do anything where dizziness or clumsiness would be dangerous. * Rest quietly at home today, then you can be up and about tomorrow. * Have a responsible person stay with you the rest of today. * You may have had an I.V. today. If so, you may take the dressing off later today. Recommendations Call your doctor if: * Trouble breathing * Continuous vomiting for more than 24 hours * Temperature above 101 degrees * Severe abdominal pain or bloating * Pain not relieved by pain medicine ordered * There is increased drainage or redness from any incision * A large amount of rectal bleeding greater than 2-3 tablespoons. (If you had a polyp/s removed or have hemorrhoids, a small amount of blood - from the rectum is to be expected.) * You have any unanswered questions or concerns. IN THE EVENT OF A SERIOUS EMERGENCY, GO TO THE NEAREST EMERGENCY ROOM Your discharge instructions were prepared by provider Luis Ayala. Patient Instructions Signature Page Benji King Patient (or Guardian) Signature/Date: I have read and understand the instructions given to me by my caregivers. Caregiver/RN/Doctor Signature/Date: The above-named patient and/or guardian has received patient instructions on this date. + Original Patient Signature Page (only) stays with chart. Please make copy for patient.
--- NOTE | 2017-05-25 13:41 | GI REPORT ---
Procedure Date: 05/25/2017 1:10 PM Procedure: Upper GI endoscopy Indications: Esophageal dysphagia Medicines: Propofol per Anesthesia Complications: No immediate complications. Estimated blood loss: Minimal. Estimated Blood Loss: Estimated blood loss was minimal. Procedure: Pre-Anesthesia Assessment: - Prior to the procedure, a History and Physical was performed, and patient medications and allergies were reviewed. The patient's tolerance of previous anesthesia was also reviewed. The risks and benefits of the procedure and the sedation options and risks were discussed with the patient. All questions were answered, and informed consent was obtained. Prior Anticoagulants: The patient has taken no previous anticoagulant or antiplatelet agents. ASA Grade Assessment: III - A patient with severe systemic disease. After reviewing the risks and benefits, the patient was deemed in satisfactory condition to undergo the procedure. After obtaining informed consent, the endoscope was passed under direct vision. Throughout the procedure, the patient's blood pressure, pulse, and oxygen saturations were monitored continuously. The Scope was introduced through the mouth, and advanced to the second part of duodenum. The upper GI endoscopy was accomplished without difficulty. The patient tolerated the procedure well. Findings: The upper third of the esophagus and middle third of the esophagus were normal. LA Grade C (one or more mucosal breaks continuous between tops of 2 or more mucosal folds, less than 75% circumference) esophagitis with no bleeding was found 36 to 37 cm from the incisors. Biopsies were taken with a cold forceps for histology. Estimated blood loss was minimal. Verification of patient identification for the specimen was done by the physician and assembly technician using the patient's name and medical record number. The esophagus and gastroesophageal junction were examined with white light. There were esophageal mucosal changes suggestive of short-segment Gaspar's esophagus. These changes involved the mucosa at the upper extent of the gastric folds (38 cm from the incisors) extending to the Z-line (37 cm from the incisors). Hiatal narrowing was identified at 40 cm. The maximum longitudinal extent of these esophageal mucosal changes was 1 cm in length. Mucosa was biopsied with a cold forceps for histology. Estimated blood loss was minimal. Verification of patient identification for the specimen was done by the physician and assembly technician using the patient's name and medical record number. The entire examined stomach was normal. Retained gastric contents are not identified on this exam. The examined duodenum was normal. The cardia and gastric fundus were normal on retroflexion. Impression: - Normal upper third of esophagus and middle third of esophagus. - LA Grade C reflux esophagitis. Biopsied. 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 Biopsied. - Normal stomach. - Normal examined duodenum. Recommendation: - Discharge patient to home (ambulatory). - Advance diet as tolerated. - Soft diet - advance as tolerated to advance diet as tolerated. - Use Prilosec (omeprazole) 40 mg PO BID for 4 months. - Repeat the upper endoscopy in 3 months to check healing. - Return to referring physician as previously scheduled. MD Luis Gould MD 05/25/2017 1:41:01 PM This report has been signed electronically. Note Initiated On: 05/25/2017 1:10 PM I attest to the content of the Intraoperative Record and orders documented therein, exceptions below
--- NOTE | 2017-05-25 14:01 | Anesthesiology Progress Note ---
Anesthesia Post Op Note Date & Time May 25, 2017 at 14:00 Vital Signs Pain Intensity: 0 Vital Signs Past 12 Hours Date Time Temp Pulse Resp B/P (MAP) Pulse Ox O2 Delivery O2 Flow Rate FiO2 05/25/17 13:50 78 18 114/69 (84) 98 Room Air 05/25/17 13:34 88 18 104/67 (79) 98 Room Air 05/25/17 12:36 36.7 90 20 123/70 (87) 98 Room Air Notes Mental Status: alert / awake / arousable, participated in evaluation Pt Amnestic to Procedure: Yes Nausea / Vomiting: adequately controlled Pain: adequately controlled Airway Patency, RR, SpO2: stable & adequate BP & HR: stable & adequate Hydration State: stable & adequate Anesthetic Complications: no major complications apparent
[2017-05-25 14:03] VITALS: BP 129/76; PULSE 75; O2SAT 100
== END | disposition home or self-care (01) ==
LOC: C.GI 12:00
PROVIDERS: ATTEND Internal Medicine Gastroenterology
DX: R13.10 Dysphagia, unspecified (principal); K21.0 Gastro-esophageal reflux disease with esophagitis; E66.9 Obesity, unspecified; I10 Essential (primary) hypertension; Z90.49 Acquired absence of other specified parts of digestive tract; Z98.890 Other specified postprocedural states; Z68.43 Body mass index [BMI] 50.0-59.9, adult; K20.9 Esophagitis, unspecified

== ENCOUNTER → 2017-08-24 | Day surgery (SDC) | payer OTHER ==
[2017-08-18 08:15] VITALS: BMI 50.0
[~2017-08-24] VITALS: Ht 162.6 cm; Wt 136.4 kg
[~2017-08-24] MED LIST changes: +MIDAZOLAM HCL 1 MG/ML 2ML VIAL ONE
[2017-08-24 08:04] VITALS: Ht 162.6 cm; Wt 136.4 kg
[2017-08-24 08:16] VITALS: TEMP 36.7
--- NOTE | 2017-08-24 08:17 | Endo History and Physical ---
History & Physical Date of Service: Aug 24, 2017. Chief Complaint: ESOPHAGITIS GERD Referring Physician: YASH SMITH History of Present Illness Severe esophagitis, here for EGD to check healing. Mild dysphagia. Past Surgical History Hx Cardiac Surgery: No Hx Internal Defibrillator: No Hx Pacemaker: No Hx Abdominal Surgery: Yes (CIARA, HERNIA REPAIR) Hx of Implantable Prosthesis: No Hx Post-Op Nausea and Vomiting: No Hx Cancer Surgery: No Hx Thoracic Surgery: No Hx Orthopedic: Yes (LT SHOULDER, LT MENISCUS REPAIR) Hx Urinary Tract Surgery: Yes (LITHOTRIPSY) Family History None Social History Smoking Status: Never Smoker Hx Substance Use: No Hx Alcohol Use: No Allergies Coded Allergies: No Known Allergies (Verified , 08/24/17) Current Medications Reported Home Medications Medications Dose Route/Sig Max Daily Dose Days Date Category Prilosec (Omeprazole) 20 Mg Capcr 40 Mg PO QAM 05/25/17 Reported Prinivil (Lisinopril) 20 Mg Tab 20 Mg PO QAM 05/12/17 Reported [place]-3 (Fish Oil) 1 Ea Cap 2 Cap PO BID 05/12/17 Reported Vital Signs Weight (Kilograms): 136.36 Height (Feet): 5 Height (Inches): 4 Physical Exam General Appearance: WD/WN, no apparent distress, + obese Respiratory/Chest: Respiratory effort: no dyspnea Auscultation: breath sounds normal, no rales/crackles Cardiovascular: Heart Auscultation: RRR, no murmurs Assessment and Plan EGD today
--- NOTE | 2017-08-24 08:54 | GI REPORT ---
Procedure Date: 08/24/2017 8:18 AM Procedure: Upper GI endoscopy Indications: Dysphagia, Follow-up of reflux esophagitis Medicines: Propofol per Anesthesia Complications: No immediate complications. Estimated blood loss: None. Estimated Blood Loss: Estimated blood loss: none. Procedure: Pre-Anesthesia Assessment: - Prior to the procedure, a History and Physical was performed, and patient medications, allergies and sensitivities were reviewed. The patient's tolerance of previous anesthesia was reviewed. - ASA Grade Assessment: III - A patient with severe systemic disease. After obtaining informed consent, the endoscope was passed under direct vision. Throughout the procedure, the patient's blood pressure, pulse, and oxygen saturations were monitored continuously. The scope was introduced through the mouth, and advanced to the third part of duodenum. The upper GI endoscopy was accomplished with ease. The patient tolerated the procedure well. Findings: No endoscopic abnormality was evident in the esophagus to explain the patient's complaint of dysphagia. It was decided, however, to proceed with dilation of the entire esophagus. A guidewire was placed and the scope was withdrawn. Dilation was performed with a Savary dilator with no resistance at 16 mm and 18 mm. The upper third of the esophagus, middle third of the esophagus and lower third of the esophagus were normal. The Z-line was irregular and was found 37 cm from the incisors. Biopsies were taken with a cold forceps for histology. A small hiatal hernia was present. The entire examined stomach was normal. Biopsies were taken with a cold forceps for Helicobacter pylori testing. The examined duodenum was normal. Verification of patient identification for the specimens was done by the physician and nurse using the patient's name, date and medical record number. Impression: - No endoscopic esophageal abnormality to explain patient's dysphagia. Esophagus dilated. Dilated. - Normal upper third of esophagus, middle third of esophagus and lower third of esophagus. - Z-line irregular, 37 cm from the incisors. Biopsied. - Small hiatal hernia. - Normal stomach. Biopsied. - Normal examined duodenum. Recommendation: - Await pathology results. - Discharge patient to home (with escort). Eduardo Olvera M.D. Eduardo Olvera MD 08/24/2017 8:53:21 AM This report has been signed electronically. Note Initiated On: 08/24/2017 8:18 AM I attest to the content of the Intraoperative Record and orders documented therein, exceptions below
--- NOTE | 2017-08-24 08:54 | Discharge Instructions ---
Endoscopy Patient Instructions Date / Procedure(s) Performed Aug 24, 2017. EGD Allergy Information Coded Allergies: No Known Allergies (Verified , 08/24/17) Discharge Date / Findings Aug 24, 2017. Irregular Z-line, dilated to 54 Fr and biopsied to rule out Gaspar's esophagitis. Medication Instructions Restart Stopped Medication(s): Restart all medications today. Provider Instructions Activity Restrictions - No exercising or heavy lifting for 24 hours. - Do not drink alcohol the day of the procedure. - Do not drive a car or operate machinery until the day after the procedure. - Do not make any important decisions or sign important papers in 24 hours after the procedure. Following Day: - Return to full activity which may include returning to work/school. Diet Start your diet with liquids and light foods (jello, soup, juice, toast). Then eat your usual diet if not nauseated. Treatment For Common After Affects For mild abdominal pain, bloating, or excessive gas: - Rest - Eat lightly - Lie on right side Follow-Up Information Follow-up with YASH SMITH as scheduled Anesthesia Information What You Should Know You have had a procedure that required some medicine to reduce anxiety and discomfort. This treatment is called moderate sedation. After receiving the treatment, you may be sleepy, but you will be able to breathe on your own. The effects of the treatment may last for several hours. Follow these instructions along with Activity/Diet recommendations noted above: * Do NOT do anything where dizziness or clumsiness would be dangerous. * Rest quietly at home today, then you can be up and about tomorrow. * Have a responsible person stay with you the rest of today. * You may have had an I.V. today. If so, you may take the dressing off later today. Recommendations Call your doctor if: * Trouble breathing * Continuous vomiting for more than 24 hours * Temperature above 101 degrees * Severe abdominal pain or bloating * Pain not relieved by pain medicine ordered * There is increased drainage or redness from any incision * A large amount of rectal bleeding greater than 2-3 tablespoons. (If you had a polyp/s removed or have hemorrhoids, a small amount of blood - from the rectum is to be expected.) * You have any unanswered questions or concerns. IN THE EVENT OF A SERIOUS EMERGENCY, GO TO THE NEAREST EMERGENCY ROOM Your discharge instructions were prepared by provider Eduardo Olvera. Patient Instructions Signature Page Jalyn King Patient (or Guardian) Signature/Date: I have read and understand the instructions given to me by my caregivers. Caregiver/RN/Doctor Signature/Date: The above-named patient and/or guardian has received patient instructions on this date. + Original Patient Signature Page (only) stays with chart. Please make copy for patient.
[2017-08-24 09:16] VITALS: BP 132/79; PULSE 73; O2SAT 98
--- NOTE | 2017-08-24 10:59 | Anesthesiology Progress Note ---
Anesthesia Post Op Note Date & Time Aug 24, 2017 at 10:59 Vital Signs Pain Intensity: 0 Vital Signs Past 12 Hours Date Time Temp Pulse Resp B/P (MAP) Pulse Ox O2 Delivery O2 Flow Rate FiO2 08/24/17 09:16 73 18 132/79 (96) 98 Room Air 08/24/17 09:01 75 18 144/84 (104) 98 Room Air 08/24/17 08:46 84 17 128/86 (100) 96 Room Air 08/24/17 08:16 36.7 86 16 162/82 (108) 96 Room Air Notes Mental Status: alert / awake / arousable, participated in evaluation Pt Amnestic to Procedure: Yes Nausea / Vomiting: adequately controlled Pain: adequately controlled Airway Patency, RR, SpO2: stable & adequate BP & HR: stable & adequate Hydration State: stable & adequate Anesthetic Complications: no major complications apparent
== END | disposition home or self-care (01) ==
LOC: C.GI 07:42
PROVIDERS: ATTEND Internal Medicine Gastroenterology
DX: K21.0 Gastro-esophageal reflux disease with esophagitis (principal); K29.50 Unspecified chronic gastritis without bleeding; R13.10 Dysphagia, unspecified; Z79.899 Other long term (current) drug therapy

== ENCOUNTER 2019-06-08 12:23 | Inpatient (IN) ==
--- NOTE | 2019-06-08 14:00 | Emergency Department Note ---
History of Present Illness General Chief Complaint: Shortness of Breath/Dyspnea Stated Complaint: HARD TIME BREATHING - BROKEN RIGHT ARM History of Present Illness Maximum Pain Intensity: 8 This patient is a 53-year-old female who presents the emergency department ambulatory for evaluation of shortness of breath that has gotten progressively worse over the last 3 days. It is particularly worse with exertion. She is also experiencing a dull, chest pain. The patient had a right humerus fracture on 20 May. She is currently in a fairly extensive splint. She is not on any anticoagulation. She denies any recent cough or fever. She denies any leg swelling or pain. Home Medications Home Medications Medication Instructions Recorded Confirmed Type lisinopril 20 mg tablet 20 mg PO QAM 04/20/19 06/08/19 History meloxicam 15 mg tablet 15 mg PO BID 04/20/19 06/08/19 History acetaminophen [Tylenol Extra 500 mg PO Q6H PRN 05/20/19 06/08/19 History Strength] docusate sodium [Colace] 100 mg PO BID #60 cap 05/20/19 06/08/19 Rx sennosides [Senokot] 8.6 mg PO HS #30 tab 05/20/19 06/08/19 Rx omeprazole 40 mg PO DAILY 06/08/19 06/08/19 History oxycodone 5 mg PO Q6H PRN 06/08/19 06/08/19 History Allergies Allergy/AdvReac Type Severity Reaction Status Date / Time No Known Allergies Allergy Verified 06/08/19 13:49 Past Med/Surg History Medical History Anxiety no meds GERD (gastroesophageal reflux disease) Hypertension Kidney stones Morbid obesity Osteoarthritis Proximal humerus fracture Surgical History History of arthroscopy of left knee History of cholecystectomy History of esophagogastroduodenoscopy (EGD) History of lithotripsy History of repair of left rotator cuff History of tooth extraction History of umbilical hernia repair Status post wrist surgery right Family History Mother Family history of reaction to anesthesia nausea/vomiting, "difficulty waking up" Hypertension Social History Preferred Language: Greenlandic Communication Ability: Effective [employer] Affixer Required: No Beliefs That Will Affect Care: None Current Living Situation: Alone Current Living Situation Comment: staying with mom while arm is broken Other Information That Helps Us Care for You: No Feels Safe at Home: Yes Safety Concerns: Feels Safe At This Time Smoking Status: Never smoker Second Hand Exposure: Yes (father smoked) ; Hx Alcohol Use: No Hx Substance Use: No Review of Systems A total of 10 systems reviewed and were otherwise negative Physical Exam Vital Signs: Vital Signs - 24 hr 06/08/19 12:36 06/08/19 12:40 06/08/19 15:00 Temperature 36.6 C Temperature Source Oral Pulse Rate 110 H 105 H Pulse Rate from Sp O2 Sensor 105 H Respiratory Rate 20 18 Respiratory Effort / Characteristics Non-Labored Sponta neous Non-Labored Respiratory Depth Normal Normal Respiratory Patter n Regular Blood Pressure 141/85 H 133/79 Blood Pressure Megha n 103 86 Pulse Oximetry 95 95 95 Oxygen Delivery Me thod Room Air Room Air Sepsis Recent Feve r Within 48 Hours No Sepsis Action Take n by Nursing No Action Required 06/08/19 15:13 06/08/19 15:30 06/08/19 15:31 Temperature Temperature Source Pulse Rate 105 H 101 H 101 H Pulse Rate from Sp O2 Sensor 104 H 102 H 101 H Respiratory Rate 16 17 Respiratory Effort / Characteristics Respiratory Depth Respiratory Patter n Blood Pressure Blood Pressure Megha n 96 Pulse Oximetry 95 96 96 Oxygen Delivery Me thod Sepsis Recent Feve r Within 48 Hours Sepsis Action Take n by Nursing Constitutional: WD/WN, vitals as above Eyes: EOM intact bilaterally ENMT: external ear and nose normal, oropharynx normal Neck: trachea midline Respiratory: normal respiratory effort, lungs clear to auscultation Cardiovascular: RRR, no murmur, no edema Gastrointestinal (Abdomen): normal bowel sounds, soft, nontender, no hepatosplenomegaly Musculoskeletal: Nonpitting edema noted to the lower extremities bilaterally. No erythema or warmth appreciated. Right arm is in an extensive sling. Capillary refill in the fingers is less than 2 seconds. Deaf Teacher strength 5/5 bilaterally. Skin: no rashes, warm and dry Neurologic: Alert and oriented x3. No focal motor deficits. Psychiatric: Acting appropriately Course Patient was seen and examined Vital signs including blood pressure were reviewed medications list was verified with patient Labs were obtained, and a saline lock was established And EKG was performed and reviewed. The patient was put on the monitor. He was also put on oxygen. Imaging was performed and reviewed Upon reassessment, the patient was resting comfortably. We discussed her results. She voiced understanding, and was comfortable with the plan. The case was also discussed with my supervising physician who is in agreement. The patient was ordered a heparin bolus and drip. The case was discussed with case management in addition to the hospitalist service. They kindly agreed to evaluate the patient for further management. Consultations Consultation #1: [facility] hospitalist team Administered Medications Docusate Sodium (Colace) 100 mg PO BID [facility] Stop: 07/08/19 20:59 Last Admin: 06/08/19 20:39 Dose: Not Given Documented by: [id number] Heparin Sodium/Dextrose (Heparin Sodium/Dextrose) 25,000 units in 500 mls @ 0.02 mls/hr IV .Q24H GEORGE; Protocol Stop: 07/08/19 14:44 Last Titration: 06/08/19 16:47 Dose: 1,700 units/hr, 34 mls/hr Documented by: [id number] Cosigned by: [id number] Admin: 06/08/19 15:06 Dose: 1,700 units/hr, 34 mls/hr Documented by: [id number] Cosigned by: [id number] Oxycodone HCl (Roxicodone Immediate Rel) 5 mg PO Q6H PRN PRN Reason: Pain Stop: 06/22/19 17:18 Last Admin: 06/08/19 17:27 Dose: 5 mg Documented by: [id number] Sennosides (Senokot) 8.6 mg PO HS [facility] Stop: 07/08/19 20:59 Last Admin: 06/08/19 20:39 Dose: Not Given Documented by: [id number] Warfarin Sodium (Coumadin) 5 mg PO DAILY@1600 [facility] Stop: 07/08/19 16:54 Last Admin: 06/08/19 20:40 Dose: 5 mg Documented by: [id number] Discontinued Medications Heparin Sodium (Porcine) (Heparin Sodium (Porcine)) Confirm Administered Dose 5,000 units .ROUTE .STK-MED ONE Stop: 06/08/19 14:47 Last Admin: 06/08/19 15:07 Dose: Not Given Documented by: [id number] Heparin Sodium (Porcine) (Heparin Iv Bolus) Confirm Administered Dose 10,000 units .ROUTE .STK-MED ONE Stop: 06/08/19 15:05 Last Admin: 06/08/19 15:06 Dose: 5,000 units Documented by: [id number] Cosigned by: [id number] Heparin Sodium/Dextrose () 1 ea IV NOW STA; Protocol Stop: 06/08/19 14:34 Last Admin: 06/08/19 15:07 Dose: 1 ea Documented by: [id number] Ioversol (Optiray 320 125ml) 118 ml IV ONCE PRN PRN Reason: Interaction Checking Stop: 06/12/19 14:09 Last Admin: 06/08/19 14:12 Dose: 118 ml Documented by: [id number] Medical Decision Making Differential Diagnosis Differential diagnosis: Pulmonary embolus, anemia, acute myocardial infarction, cardiac arrhythmia, pneumothorax, pneumonia, bronchitis, pericarditis, electrolyte imbalance, among others Medical Records Attestation: I reviewed the patient's medical records. Home Medications Current Medication List: was personally reviewed by me Laboratory Data Attestation: I reviewed the patient's lab results. Result diagrams: 06/08/19 13:30 06/08/19 13:30 Lab Results 06/08/19 06/08/19 06/08/19 Range/Units 13:30 13:30 13:30 WBC 9.78 (4.8-10.8) K/uL RBC 4.56 (4.2-5.4) M/uL Hgb 13.0 (12.0-16.0) g/dL POC Hgb (12.0-16.0) g/dl Hct 39.6 (37-47) % POC Hct (37-47) % MCV 86.8 (80-100) fL MCH 28.5 (25-34) pg MCHC 32.8 (32-36) g/dL RDW Std Deviation 49.2 H (36.4-46.3) fL RDW Coeff of Cher 15.5 H (11.5-14.5) % Plt Count 240 (130-400) K/uL MPV 10.3 (7.4-10.4) fL Immature Gran % (Auto) 0.3 % Neut % (Auto) 80.9 % Lymph % (Auto) 11.7 % [place] % (Auto) 5.9 % Eos % (Auto) 1.0 % Baso % (Auto) 0.2 % Immature Gran # (Auto) 0.03 H (0.00-0.02) K/uL Neut # (Auto) 7.91 H (1.4-6.5) K/uL Lymph # (Auto) 1.14 L (1.2-3.4) K/uL [place] # (Auto) 0.58 (0.11-0.59) K/uL Eos # (Auto) 0.10 (0-0.5) K/uL Baso # (Auto) 0.02 (0-0.2) K/uL PT 10.5 (9.0-12.0) Seconds INR 1.0 (0.9-1.1) APTT (21.0-31.0) Seconds PTT Ratio POC Sodium (135-144) mEq/L Sodium 138 (136-145) mmol/L POC Potassium (3.3-5.0) mEq/L Potassium 3.9 (3.5-5.1) mmol/L POC Chloride (101-112) mEq/L Chloride 107 (98-107) mmol/L Carbon Dioxide 25 (21-32) mmol/L POC Total CO2 (24-31) mEq/l Anion Gap 6.0 (3-11) POC Anion Gap (16-25) mmol/L POC BUN (7-18) mg/dl BUN 20 H (7-18) mg/dl Creatinine 0.99 (0.6-1.2) mg/dl POC Creatinine (0.6-1.3) mg/dl Est Cr Clr Drug Dosing 95.9 ml/min Est GFR ( Amer) 74.9 Est GFR (Non-Af Amer) 64.6 BUN/Creatinine Ratio 20.6 H (10-20) Glucose 92 (70-99) mg/dl POC Glucose (other) (70-99) mg/dl Calcium 8.8 (8.5-10.1) mg/dl POC Ioniz Calcium Mignon (1.12-1.32) mmol/l Total Bilirubin 0.4 (0.2-1) mg/dl AST 13 L (15-37) U/L ALT 23 (12-78) U/L Alkaline Phosphatase 94 (45-117) U/L Troponin I 0.207 H* (0-0.045) ng/ml Total Protein 8.2 (6.4-8.2) gm/dl Albumin 3.3 L (3.4-5.0) gm/dl Globulin 4.9 H (2.5-4.0) gm/dl Albumin/Globulin Ratio 0.7 L (0.9-2) 06/08/19 06/08/19 06/08/19 Range/Units 13:30 13:30 13:48 WBC (4.8-10.8) K/uL RBC (4.2-5.4) M/uL Hgb (12.0-16.0) g/dL POC Hgb 13.9 (12.0-16.0) g/dl Hct (37-47) % POC Hct 41 (37-47) % MCV (80-100) fL MCH (25-34) pg MCHC (32-36) g/dL RDW Std Deviation (36.4-46.3) fL RDW Coeff of Cher (11.5-14.5) % Plt Count (130-400) K/uL MPV (7.4-10.4) fL Immature Gran % (Auto) % Neut % (Auto) % Lymph % (Auto) % [place] % (Auto) % Eos % (Auto) % Baso % (Auto) % Immature Gran # (Auto) (0.00-0.02) K/uL Neut # (Auto) (1.4-6.5) K/uL Lymph # (Auto) (1.2-3.4) K/uL [place] # (Auto) (0.11-0.59) K/uL Eos # (Auto) (0-0.5) K/uL Baso # (Auto) (0-0.2) K/uL PT (9.0-12.0) Seconds INR (0.9-1.1) APTT 25.2 (21.0-31.0) Seconds PTT Ratio 0.9 POC Sodium 140 (135-144) mEq/L Sodium (136-145) mmol/L POC Potassium 4.0 (3.3-5.0) mEq/L Potassium (3.5-5.1) mmol/L POC Chloride 108 (101-112) mEq/L Chloride (98-107) mmol/L Carbon Dioxide (21-32) mmol/L POC Total CO2 23 L (24-31) mEq/l Anion Gap (3-11) POC Anion Gap 14.0 L (16-25) mmol/L POC BUN 19 H (7-18) mg/dl BUN (7-18) mg/dl Creatinine (0.6-1.2) mg/dl POC Creatinine 0.9 (0.6-1.3) mg/dl Est Cr Clr Drug Dosing ml/min Est GFR ( Amer) Est GFR (Non-Af Amer) BUN/Creatinine Ratio (10-20) Glucose (70-99) mg/dl POC Glucose (other) 97 (70-99) mg/dl Calcium (8.5-10.1) mg/dl POC Ioniz Calcium Mignon 1.15 (1.12-1.32) mmol/l Total Bilirubin (0.2-1) mg/dl AST (15-37) U/L ALT (12-78) U/L Alkaline Phosphatase (45-117) U/L Troponin I Cancelled (0-0.045) ng/ml Total Protein (6.4-8.2) gm/dl Albumin (3.4-5.0) gm/dl Globulin (2.5-4.0) gm/dl Albumin/Globulin Ratio (0.9-2) Imaging Data Attestation: I personally reviewed and interpreted this imaging study as follows: Radiologist's Impression: CT chest angiogram for PE 1. Acute bilateral pulmonary embolism with evidence of secondary right ventricular strain Electronically signed by: Colin Catherine M.D. 06/08/2019 2:25 PM Dictated: 06/08/19 1419 Transcribed: 06/08/19 1419 ECG Data Attestation: I personally reviewed and interpreted this ECG as follows: Prior ECG tracings: available for review Interpretation: Sinus tachycardia with a rate of 107 bpm. T wave inversions noted in the inferior and lateral leads. Prior for comparison also shows T wave inversion in the inferior and lateral leads. Comparison is from March 23, 2019. MDM Narrative This patient is a 53-year-old female who presents to the emergency department with dyspnea and chest pain. This is in the setting of recent humerus fracture. On exam, she was tachycardic. Oxygen level was holding at 95%. EKG reveals inferior lateral T wave inversions, which do not appear to be new. I had a high suspicion of PE given her history and physical exam. Imaging is consistent with extensive bilateral pulmonary emboli with associated right heart strain. Troponin was mildly elevated. As the patient's vital signs are fairly stable, I did not find transfer necessary. I believe heparin treatment is appropriate. The patient will be evaluated by the hospitalist team for likely inpatient management. Impression & Plan Bilateral pulmonary embolism Discharge Plan Visit Data *Final* Discharge Date/Time: 06/08/19 16:32 Chief Complaint: Shortness of Breath/Dyspnea Stated Complaint: HARD TIME BREATHING - BROKEN RIGHT ARM ED Provider: Rd [facility] ED Midlevel Provider: Rhiannon Cunningham Discharge Problem: Bilateral pulmonary embolism Patient Disposition: Admitted As Inpatient Condition: Fair Discharge Instructions Interventions: ED Discharge Assessment Last Done: 06/08/19 16:32
[2019-06-08 14:04] LABS: iSTAT Creatinine 0.9 mg/dl (0.6-1.3); iSTAT Hemoglobin 13.9 g/dl (12.0-16.0); iSTAT Ionized Calcium 1.15 mmol/l (1.12-1.32)
[2019-06-08 14:10] LABS: Basophils # (auto) 0.02 K/uL (0-0.2); Basophils % (auto) 0.2 %; Hematocrit (blood only) 39.6 % (37-47); Immature Granulocytes # (auto) 0.03 K/uL (0.00-0.02); Immature Granulocytes % (auto) 0.3 %; Lymphocytes # (auto) 1.14 K/uL (1.2-3.4); Lymphocytes % (auto) 11.7 %; Mean Corpuscular Hemoglobin 28.5 pg (25-34); Mean Corpuscular Hgb Conc 32.8 g/dL (32-36); Mean Corpuscular Volume 86.8 fL (80-100); Mean Platelet Volume 10.3 fL (7.4-10.4); Monocytes # (auto) 0.58 K/uL (0.11-0.59); Monocytes % (auto) 5.9 %; Neutrophils # (auto) 7.91 K/uL (1.4-6.5); Neutrophils % (auto) 80.9 %; Platelet Count 240 K/uL (130-400); RDW Coefficient of Variation 15.5 % (11.5-14.5); RDW Standard Deviation 49.2 fL (36.4-46.3); Red Blood Count 4.56 M/uL (4.2-5.4); White Blood Count 9.78 K/uL (4.8-10.8)
[2019-06-08] MEDS ORDERED: OPTIRAY 320 125ml IV PRN (14:10)
[2019-06-08 14:18] LABS: Prothrombin Time 10.5 Seconds (9.0-12.0)
--- NOTE | 2019-06-08 14:26 | CT Scan Report ---
CT ANGIOGRAM OF THE CHEST CLINICAL HISTORY: Chest pain and shortness of breath. Recent humeral fracture. Possible pulmonary emb olism. COMPARISON STUDY: Chest x-ray dated 02/12/2017 TECHNIQUE: Following the IV administration of 118 mL of Optiray-320, CT angiogram of the thorax was p erformed from the thoracic inlet to the lung bases utilizing the pulmonary embolus protocol. Images a re reviewed in the axial, sagittal, and coronal planes. IV contrast was administered without complica tion. MIP imaging was performed. A dose lowering technique was utilized adhering to the principles o f ALARA. CT DOSE: 952.16 mGy.cm FINDINGS: No pathologically enlarged axillary mediastinal or hilar lymph nodes were visualized. There was no evidence of thoracic aortic dilatation. There are bilateral lower lobe pulmonary artery filling defects. Filling defects are also visualized within the left upper lobe and right middle lobe. There is a right ventricular strain pattern. No pleural effusions are visualized. There is no focal pulmonary consolidation. IMPRESSION: 1. Acute bilateral pulmonary embolism with evidence of secondary right ventricular strain Electronically signed by: Colin Catherine M.D. 06/08/2019 2:25 PM
[2019-06-08 14:37] LABS: Albumin Level 3.3 gm/dl (3.4-5.0); BUN Creatinine Ratio 20.6 (10-20); Calcium 8.8 mg/dl (8.5-10.1); Creatinine Clr Calc Pharmacy 95.9 ml/min; Est GFR (African American) 74.9; Est GFR (Non-African American) 64.6; Potassium 3.9 mmol/L (3.5-5.1)
[2019-06-08] MEDS ORDERED: HEPARIN SOD 5,000 UNIT/0.5 ML VIAL ONE (14:46)
[2019-06-08 14:58] LABS: Albumin Globulin Ratio 0.7 (0.9-2); Bilirubin,Total 0.4 mg/dl (0.2-1); Globulin 4.9 gm/dl (2.5-4.0); Total Protein 8.2 gm/dl (6.4-8.2); Troponin I 0.207 ng/ml (0-0.045)
[2019-06-08] MEDS ORDERED: HEPARIN SOD (PORCINE) 1000 UNIT/ML 10 ML VIAL ONE (15:04)
[2019-06-08] MEDS: HEPARIN SODIUM/DEXTROSE 25,000 UNITS/500 ML BAG IV SCH (15:06)
[2019-06-08 15:25] LABS: Partial Thromboplastin Ratio 0.9; Partial Thromboplastin Time 25.2 Seconds (21.0-31.0)
--- NOTE | 2019-06-08 16:24 | History & Physical Report ---
Date of Service June 08, 2019 Assessment & Plan (1) Bilateral pulmonary embolism: -Admit to telemetry -Patient presenting from home with reports of worsening chest pain shortness of breath over the past 1 week -05/20, patient had a fall while at work and subsequently suffered a right hum erus fracture. While recovering, patient has been rather sedentary. -In the ED, CTA chest shows acute bilateral pulmonary embolism -Mildly tachycardic however saturating well on room air -Evidence of right heart strain on CT, will obtain echo -Started on heparin drip in the ED, will continue and start Coumadin bridge (NOAC likely contraindicated secondary to patient's high BMI) -Home meloxicam held -Lower extremity Dopplers -Suspect PE is due to recent sedentary state while recovering from right humerus fracture; defer hypercoagulable work-up to PCP; noted last mammogram 05/2018, patient declines colonoscopy (2) Acute electrocardiogram changes: (3) Elevated troponin: -EKG shows new T wave inversions in the inferior leads, worsening T wave inversions in the lateral leads -Initial troponin 0.207 -Suspect due to acute PE, obtaining echo to evaluate for right heart strain and wall motion abnormalities (4) Hypertension: -BP controlled, continue lisinopril (5) Proximal humerus fracture: -Fracture occurred on 05/20 -Currently following with orthopedics with nonoperative management (6) GERD (gastroesophageal reflux disease): -Continue PPI (7) DVT prophylaxis: -On IV heparin drip with Coumadin bridge History of Present Illness Chief Complaint: Chest pain, shortness of breath Primary Care Provider: Julita Porter DO 53-year-old female who presents the ED for evaluation of chest pain shortness of breath. On 05/20, patient suffered a fall at work and subsequently fractured her right humerus. Since that time, patient has been resting at home and that has been rather sedentary. Over the past 1 week, she is noted increasing shortness of breath and pleuritic chest pain. She is noted increasing lower extremity edema. Patient therefore presented to the ED for further evaluation. In the ED, patient is found to have acute bilateral pulmonary embolism. Patient denies lightheadedness, dizziness, diaphoresis, syncopal events. No abdominal pain, nausea, vomiting, diarrhea. Denies fevers and chills. No urinary symptoms. In the ED, patient was mildly tachycardic however otherwise hemodynamically stable. She is saturating well on room air. She was started on an IV heparin drip. Allergies Allergy/AdvReac Type Severity Reaction Status Date / Time No Known Allergies Allergy Verified 06/08/19 13:49 Home Medications Home Medications Medication Instructions Recorded Confirmed Type lisinopril 20 mg tablet 20 mg PO QAM 04/20/19 06/08/19 History meloxicam 15 mg tablet 15 mg PO BID 04/20/19 06/08/19 History acetaminophen [Tylenol Extra 500 mg PO Q6H PRN 05/20/19 06/08/19 History Strength] docusate sodium [Colace] 100 mg PO BID #60 cap 05/20/19 06/08/19 Rx sennosides [Senokot] 8.6 mg PO HS #30 tab 05/20/19 06/08/19 Rx omeprazole 40 mg PO DAILY 06/08/19 06/08/19 History oxycodone 5 mg PO Q6H PRN 06/08/19 06/08/19 History Past Med/Surg History Medical History Anxiety no meds GERD (gastroesophageal reflux disease) Hypertension Kidney stones Morbid obesity Osteoarthritis Proximal humerus fracture Surgical History History of arthroscopy of left knee History of cholecystectomy History of esophagogastroduodenoscopy (EGD) History of lithotripsy History of repair of left rotator cuff History of tooth extraction History of umbilical hernia repair Status post wrist surgery right Family History Mother Family history of reaction to anesthesia nausea/vomiting, "difficulty waking up" Hypertension Social History Preferred Language: Czech Communication Ability: Effective Slab Polisher Required: No Beliefs That Will Affect Care: None Current Living Situation: Alone Current Living Situation Comment: staying with mom while arm is broken Other Information That Helps Us Care for You: No Feels Safe at Home: Yes Safety Concerns: Feels Safe At This Time Smoking Status: Never smoker Second Hand Exposure: Yes (father smoked) ; Hx Alcohol Use: No Hx Substance Use: No Review of Systems Review of Systems: ROS per HPI, all other systems reviewed and negative Physical Exam Constitutional: WD/WN, vitals as above + obese Eyes: PERRL, conjunctivae normal, anicteric sclerae ENMT: external ear and nose normal, oropharynx normal Respiratory: normal respiratory effort, lungs clear to auscultation Cardiovascular: Rate/Rhythm: regular rate and regular rhythm Vessels: normal peripheral pulses Extremities: + edema (+2 edema BLE) Gastrointestinal (Abdomen): normal bowel sounds, soft, nontender, no hepatosplenomegaly Musculoskeletal: no cyanosis or clubbing, extremities motor strength 5/5 Extremities: + upper extremity abnormal to inspection (Splinted) Right Skin: no rashes, warm and dry Neurologic: PERRL, EOMI, accommodation nl, no face palsy, no dysarthria Psychiatric: A+Ox3, euthymic affect Results & Data Vital Signs (Past 12 Hours) Vital Signs Temp Pulse Resp BP Pulse Ox 06/08/19 12:40 95 06/08/19 12:36 36.6 C 110 H 20 141/85 H 95 Code Status & VTE Plan VTE Prophylaxis Plan VTE Prophylaxis will be ordered: Yes Supervising Physician Co-Signing Physician Notes Patient is a 53-year-old female with history of morbid obesity, GERD, hypertension and other medical problems presents with history of worsening shortness of breath, pleuritic chest pain since 4 to 5 days duration. Patient had recent mechanical fall and sustained right humerus fracture recently and has been mostly sedentary since the fracture. She also admits to having increased lower extremity edema and weight gain. CTA showed acute bilateral pulmonary emboli with evidence of secondary right ventricular strain. Venous Doppler showed no acute DVT. Mild troponin elevation noted on labs. Patient denies any history of bleeding, clotting problems or family history of clotting problems. She was saturating well on room air. On exam patient is morbidly obese, normocephalic atraumatic, lungs are clear to auscultation, S1-S2, sinus tachycardia, no murmur, abdomen soft nontender, bilateral lower extremity edema, grossly no focal neurologic deficits, right upper extremity in splint. Patient is admitted for management of acute bilateral PE. She was started on IV heparin, Coumadin while in ED. Check echo. No NOAC due to BMI. Avoid NSAIDs. Mild troponin level elevation likely secondary to demand ischemia from right heart strain due to PE. Consider cardiology evaluation if needed. Hypercoagulable work-up as outpatient. Will at least need 3 to 6 months of anticoagulation upon discharge. I personally reviewed the record. Patient is interviewed and examined at bedside. Patient's care is coordinated with Charley Mead NP. Please refer to the documentation above for details of patient's presentation and for discussion of other issues.
[2019-06-08] MEDS ORDERED: POLYETHYLENE (MIRALAX) 17 GM PACK PO PRN (16:55)
[2019-06-08] MEDS ORDERED: OXYCODONE HCL IR 5 MG TAB (IMMEDIATE RELEASE) PO PRN (17:08)
[2019-06-08] MEDS: OXYCODONE HCL IR 5 MG TAB (IMMEDIATE RELEASE) PO PRN ×2 (17:27→23:50)
--- NOTE | 2019-06-08 20:29 | Ultrasound Report ---
BILATERAL LOWER EXTREMITY VENOUS DOPPLER HISTORY: Bilateral lower extremity edema COMPARISON STUDY: None. FINDINGS: There is normal compressibility, flow, and augmentation within the bilateral lower extremit y deep venous systems. IMPRESSION: No DVT within the right or left lower extremity. Electronically signed by: Maximo Pack M.D. 06/08/2019 8:28 PM
[2019-06-08] MEDS: SENNA 8.6 MG TAB PO SCH (20:39)
[2019-06-08] MEDS: DOCUSATE SODIUM 100 MG CAP PO SCH (20:39)
[2019-06-08] MEDS: WARFARIN SOD 5 MG TAB PO SCH (20:40)
[2019-06-08 21:57] LABS: Partial Thromboplastin Ratio 1.5; Partial Thromboplastin Time 41.2 Seconds (21.0-31.0)
[2019-06-08] MEDS ORDERED: HEPARIN IV BOLUS 4,000 UNITS in SYRINGE 0 ML IV ONE (22:07)
[2019-06-09 04:27] LABS: Hematocrit (blood only) 39.5 % (37-47); Hemoglobin 12.7 g/dL (12.0-16.0); Mean Corpuscular Hemoglobin 27.6 pg (25-34); Mean Corpuscular Hgb Conc 32.2 g/dL (32-36); Mean Corpuscular Volume 85.9 fL (80-100); Mean Platelet Volume 10.3 fL (7.4-10.4); Platelet Count 208 K/uL (130-400); RDW Coefficient of Variation 15.6 % (11.5-14.5); RDW Standard Deviation 48.3 fL (36.4-46.3); White Blood Count 7.41 K/uL (4.8-10.8)
[2019-06-09 04:47] LABS: INR 1.1 (0.9-1.1); Partial Thromboplastin Ratio 2.8; Prothrombin Time 10.9 Seconds (9.0-12.0)
[2019-06-09 04:51] LABS: BUN Creatinine Ratio 16.8 (10-20); Calcium 8.8 mg/dl (8.5-10.1); Creatinine Clr Calc Pharmacy 92.3 ml/min; Est GFR (African American) 75.8; Est GFR (Non-African American) 65.4; Potassium 3.5 mmol/L (3.5-5.1)
[2019-06-09 04:56] LABS: Partial Thromboplastin Time 76.9 Seconds (21.0-31.0)
[2019-06-09] MEDS: HEPARIN SODIUM/DEXTROSE 25,000 UNITS/500 ML BAG IV SCH ×2 (04:59→19:27)
[2019-06-09] MEDS: lisinopriL 20 MG TAB PO SCH (08:27)
[2019-06-09] MEDS: PANTOprazole 40 MG TAB PO SCH (08:28)
[2019-06-09] MEDS: DOCUSATE SODIUM 100 MG CAP PO SCH ×2 (08:29→19:30)
[2019-06-09 11:41] LABS: Partial Thromboplastin Ratio 1.9
[2019-06-09 11:42] LABS: Partial Thromboplastin Time 50.7 Seconds (21.0-31.0)
[2019-06-09] MEDS: WARFARIN SOD 5 MG TAB PO SCH (15:46)
[2019-06-09] MEDS: OXYCODONE HCL IR 5 MG TAB (IMMEDIATE RELEASE) PO PRN (19:27)
[2019-06-09] MEDS: SENNA 8.6 MG TAB PO SCH (19:30)
[2019-06-09] MEDS ORDERED: WARFARIN SOD 5 MG TAB PO ONE (19:54)
--- NOTE | 2019-06-09 20:06 | Hospitalist Progress Note ---
Date of Service June 09, 2019 Assessment & Plan (1) Bilateral pulmonary embolism: Patient presented with several days of progressive dyspnea with some pleuritic chest discomfort. CTA demonstrated multiple bilateral pulmonary emboli (present on admission) Venous duplex of lower extremities negative for DVT. May have DVT of right upper extremity due to recent humeral fracture, but duplex imaging would be uncomfortable and could potentially displace the fracture. No recent travel. No personal history of VTE. No hormonal therapy. Non-smoker. No history of malignancy. No family history of VTE. VTE most likely provoked due to right humeral fracture and relative inactivity. Evaluation for underlying hypercoagulation disorders not indicated in acute setting. Anticoagulation options are limited due to obesity (weight 140 kg, BMI 52). Enoxaparin not recommended if wt > 120-140 kg. DOAC's not recommended if wt > 120 kg or BMI > 35-40. Outpatient Hematology consultation recommended regarding further evaluation and duration of anticoagulation. Initially treated with IV heparin which should be continued with transition to warfarin. Importance of being current with routine cancer screening recommended. (2) Elevated troponin: Serum troponin 0.207. Elevated troponin probably due to pulmonary emboli. (3) Right ventricular dilation: CTA suggested RV strain. Echo showed dilated RV with moderately reduced RV systolic function, mild TR, estimated PAP 53 mm. RV strain probably secondary to pulmonary emboli. However, patient may have underlying sleep apnea and / or obesity hypoventilation syndrome. Check nocturnal pulse oximetry prior to discharge. Outpatient sleep study recommended. Check follow-up echo after treatment of VTE, perhaps in 6 months. (4) Hypertension: Hemodynamically stable. Continue lisinopril. (5) GERD (gastroesophageal reflux disease): Continue PPI. (6) Morbid obesity: Wt 140 kg. BMI 52. Morbid obesity, possibly a contributing factor to VTE. Heart healthy diet. (7) Proximal humerus fracture: Continue immobilization. Follow-up with Ortho. (8) DVT prophylaxis: Receiving IV heparin and warfarin for acute VTE as discussed above. (9) Discharge planning issues: Anticipated discharge to home. Family Medicine follow-up with Dr. Julita Porter. Subjective Recheck for pulmonary emboli. Patient seen in their room around 1600. Daughter visiting. Less SOB. Mild chronic cough; no hemoptysis. No pleuritic chest pain. No abnormal bruising or bleeding. Review of Systems: Constitutional- no fever. Cardiac- no anginal pain. Pulmonary- as noted above. GI- no melena, hematochezia. - no urinary symptoms. Otherwise, as noted above. Physical Exam Constitutional: no acute distress Eyes: + anicteric sclerae Respiratory: no respiratory distress Auscultation: lungs clear to auscultation bilaterally Cardiovascular: Rate/Rhythm: regular rate and regular rhythm Heart Sounds: no gallop, no murmur and no cardiac rub Vessels: + JVD Extremities: + edema (trace pretibial); no calf tenderness Gastrointestinal (Abdomen): normal bowel sounds, soft, nontender, no hepatosplenomegaly Musculoskeletal: Extremities: + extremities abnormal to inspection (RUE immobilized; mild swelling of right forearm) Skin: no rashes, warm and dry Psychiatric: Orientation: alert and oriented x 3 Results & Data Vital Signs (Past 12 Hours) Vital Signs Temp Pulse Pulse Resp BP Pulse Ox 06/09/19 19:28 36.6 C 101 H 18 130/75 95 06/09/19 18:47 95 H 06/09/19 15:54 36.6 C 95 H 18 117/74 94 06/09/19 11:57 36.7 C 96 H 18 111/67 92 Laboratory Results Laboratory Results - last 24 hr 06/09/19 06/09/19 06/09/19 00:38 04:09 04:09 WBC 7.41 RBC 4.60 Hgb 12.7 Hct 39.5 MCV 85.9 MCH 27.6 MCHC 32.2 RDW Std Deviation 48.3 H RDW Coeff of Cher 15.6 H Plt Count 208 MPV 10.3 PT 10.9 INR 1.1 APTT 76.9 H* PTT Ratio 2.8 Sodium Potassium Chloride Carbon Dioxide Anion Gap BUN Creatinine Est Cr Clr Drug Dosing Est GFR ( Amer) Est GFR (Non-Af Amer) BUN/Creatinine Ratio Glucose Calcium Troponin I 0.176 H* 06/09/19 06/09/19 04:09 11:00 WBC RBC Hgb Hct MCV MCH MCHC RDW Std Deviation RDW Coeff of Cher Plt Count MPV PT INR APTT 50.7 H* PTT Ratio 1.9 Sodium 138 Potassium 3.5 Chloride 109 H Carbon Dioxide 24 Anion Gap 5.0 BUN 17 Creatinine 0.98 Est Cr Clr Drug Dosing 92.3 Est GFR ( Amer) 75.8 Est GFR (Non-Af Amer) 65.4 BUN/Creatinine Ratio 16.8 Glucose 96 Calcium 8.8 Troponin I
[2019-06-10] MEDS: OXYCODONE HCL IR 5 MG TAB (IMMEDIATE RELEASE) PO PRN ×2 (06:16→20:12)
[2019-06-10] MEDS: PANTOprazole 40 MG TAB PO SCH (08:47)
[2019-06-10] MEDS: lisinopriL 20 MG TAB PO SCH (08:48)
[2019-06-10] MEDS: DOCUSATE SODIUM 100 MG CAP PO SCH ×2 (08:48→20:12)
[2019-06-10 09:05] LABS: INR 1.2 (0.9-1.1); Partial Thromboplastin Ratio 1.8; Prothrombin Time 11.9 Seconds (9.0-12.0)
[2019-06-10 09:21] LABS: Partial Thromboplastin Time 47.5 Seconds (21.0-31.0)
[2019-06-10] MEDS: HEPARIN SODIUM/DEXTROSE 25,000 UNITS/500 ML BAG IV SCH (10:42)
[2019-06-10] MEDS ORDERED: WARFARIN SOD 10 MG TAB PO SCH (16:00)
[2019-06-10] MEDS: ACETAMINOPHEN 325 MG TAB PO PRN (18:35)
[2019-06-10] MEDS: SENNA 8.6 MG TAB PO SCH (20:13)
--- NOTE | 2019-06-10 20:50 | Hospitalist Progress Note ---
Date of Service June 10, 2019 Assessment & Plan (1) Bilateral pulmonary embolism: Patient presented with several days of progressive dyspnea with some pleuritic chest discomfort. CTA demonstrated multiple bilateral pulmonary emboli (present on admission) Venous duplex of lower extremities negative for DVT. May have DVT of right upper extremity due to recent humeral fracture, but duplex imaging would be uncomfortable and could potentially displace the fracture. No recent travel. No personal history of VTE. No hormonal therapy. Non-smoker. No history of malignancy. No family history of VTE. VTE most likely provoked due to right humeral fracture and relative inactivity. Evaluation for underlying hypercoagulation disorders not indicated in acute setting. Anticoagulation options are limited due to obesity (weight 140 kg, BMI 52). Enoxaparin not recommended if wt > 120-140 kg. DOAC's not recommended if wt > 120 kg or BMI > 35-40. Outpatient Hematology consultation recommended regarding further evaluation and duration of anticoagulation. Importance of being current with routine cancer screening recommended. Treating with IV heparin day # 3 / transitioning to warfarin day # 2 with INR of 1.2. (2) Elevated troponin: Serum troponin 0.207. Elevated troponin probably due to pulmonary emboli. (3) Right ventricular dilation: CTA suggested RV strain. Echo showed dilated RV with moderately reduced RV systolic function, mild TR, estimated PAP 53 mm. RV strain probably secondary to pulmonary emboli. However, patient may have underlying sleep apnea and / or obesity hypoventilation syndrome. Check nocturnal pulse oximetry prior to discharge. Outpatient sleep study recommended. Check follow-up echo after treatment of VTE, perhaps in 6 months. (4) Hypertension: BP's running a bit low. Hold lisinopril. (5) GERD (gastroesophageal reflux disease): Continue PPI. (6) Morbid obesity: Wt 140 kg. BMI 52. Morbid obesity, possibly a contributing factor to VTE. Heart healthy diet. (7) Proximal humerus fracture: Continue immobilization. Follow-up with Ortho. (8) DVT prophylaxis: Receiving IV heparin and warfarin for acute VTE as discussed above. (9) Discharge planning issues: Anticipated discharge to home. Family Medicine follow-up with Dr. Julita Porter. Subjective Recheck for pulmonary emboli. Patient seen in their room around 1630. Daughter visiting. Better. Less SOB. Mild chronic cough; no hemoptysis. No pleuritic chest pain. No abnormal bruising or bleeding. Blood draws are challenging. Review of Systems: Constitutional- no fever. Cardiac- no anginal pain. Pulmonary- as noted above. GI- no melena, hematochezia. - no urinary symptoms. Otherwise, as noted above. Physical Exam Constitutional: no acute distress Eyes: + anicteric sclerae Respiratory: no respiratory distress Auscultation: lungs clear to auscultation bilaterally Cardiovascular: Rate/Rhythm: regular rate and regular rhythm Heart Sounds: no gallop, no murmur and no cardiac rub Vessels: + JVD Extremities: normal capillary refill (right fingers) and + edema (trace pretibial); no calf tenderness Gastrointestinal (Abdomen): normal bowel sounds, soft, nontender, no hepatosplenomegaly Musculoskeletal: Extremities: + extremities abnormal to inspection (RUE immobilized; mild swelling of right forearm) Skin: no rashes, warm and dry Psychiatric: Orientation: alert and oriented x 3 Results & Data Vital Signs (Past 12 Hours) Vital Signs Temp Pulse Resp BP Pulse Ox 06/10/19 19:37 36.7 C 87 18 112/74 95 06/10/19 15:42 36.6 C 93 H 18 113/76 95 06/10/19 12:00 36.5 C 90 18 97/59 L 97 06/10/19 08:59 100/66 Laboratory Results Laboratory Results - last 24 hr 06/10/19 08:20 PT 11.9 INR 1.2 H APTT 47.5 H* PTT Ratio 1.8
[2019-06-11] MEDS: HEPARIN SODIUM/DEXTROSE 25,000 UNITS/500 ML BAG IV SCH ×2 (02:04→17:42)
[2019-06-11] MEDS: OXYCODONE HCL IR 5 MG TAB (IMMEDIATE RELEASE) PO PRN ×2 (03:20→21:17)
[2019-06-11 06:18] LABS: Hematocrit (blood only) 34.7 % (37-47); Hemoglobin 11.3 g/dL (12.0-16.0); Mean Corpuscular Hemoglobin 27.9 pg (25-34); Mean Corpuscular Hgb Conc 32.6 g/dL (32-36); Mean Corpuscular Volume 85.7 fL (80-100); Mean Platelet Volume 10.6 fL (7.4-10.4); Platelet Count 164 K/uL (130-400); RDW Coefficient of Variation 15.6 % (11.5-14.5); RDW Standard Deviation 48.4 fL (36.4-46.3); Red Blood Count 4.05 M/uL (4.2-5.4)
[2019-06-11 06:46] LABS: INR 1.7 (0.9-1.1); Partial Thromboplastin Ratio 2.6; Prothrombin Time 16.5 Seconds (9.0-12.0)
[2019-06-11 06:55] LABS: Partial Thromboplastin Time 70.8 Seconds (21.0-31.0)
[2019-06-11 07:13] LABS: BUN Creatinine Ratio 16.9 (10-20); Calcium 8.6 mg/dl (8.5-10.1); Creatinine Clr Calc Pharmacy 98.9 ml/min; Est GFR (African American) 81.8; Est GFR (Non-African American) 70.6; Potassium 4.1 mmol/L (3.5-5.1)
[2019-06-11] MEDS: PANTOprazole 40 MG TAB PO SCH (08:31)
[2019-06-11] MEDS: DOCUSATE SODIUM 100 MG CAP PO SCH ×2 (08:31→21:12)
[2019-06-11 13:35] LABS: Partial Thromboplastin Ratio 2.2
[2019-06-11 13:37] LABS: Partial Thromboplastin Time 60.1 Seconds (21.0-31.0)
[2019-06-11] MEDS ORDERED: OXYMETAZOLINE 0.05% 30 ML BTL PRN (14:18)
[2019-06-11] MEDS ORDERED: WARFARIN SOD 5 MG TAB PO SCH (16:00)
--- NOTE | 2019-06-11 16:31 | Hospitalist Progress Note ---
Date of Service June 11, 2019 Assessment & Plan (1) Bilateral pulmonary embolism: Patient presented with several days of progressive dyspnea with some pleuritic chest discomfort. CTA demonstrated multiple bilateral pulmonary emboli (present on admission) Venous duplex of lower extremities negative for DVT. May have DVT of right upper extremity due to recent humeral fracture, but duplex imaging would be uncomfortable and could potentially displace the fracture. No recent travel. No personal history of VTE. No hormonal therapy. Non-smoker. No history of malignancy. No family history of VTE. VTE most likely provoked due to right humeral fracture and relative inactivity. Evaluation for underlying hypercoagulation disorders not indicated in acute setting. Anticoagulation options are limited due to obesity (weight 140 kg, BMI 52). Enoxaparin not recommended if wt > 120-140 kg. DOAC's not recommended if wt > 120 kg or BMI > 35-40. Outpatient Hematology consultation recommended regarding further evaluation and duration of anticoagulation. Importance of being current with routine cancer screening recommended. Treating with IV heparin day # 4 / transitioning to warfarin day # 3 with INR of 1.7. (2) Elevated troponin: Serum troponin 0.207. Elevated troponin probably due to pulmonary emboli. (3) Right ventricular dilation: CTA suggested RV strain. Echo showed dilated RV with moderately reduced RV systolic function, mild TR, estimated PAP 53 mm. RV strain probably secondary to pulmonary emboli. However, patient may have underlying sleep apnea and / or obesity hypoventilation syndrome. Check nocturnal pulse oximetry prior to discharge. Outpatient sleep study recommended. Check follow-up echo after treatment of VTE, perhaps in 3-6 months. (4) Hypertension: BP's running low at times. Holding lisinopril. (5) GERD (gastroesophageal reflux disease): Continue PPI. (6) Morbid obesity: Wt 140 kg. BMI 52. Morbid obesity, possibly a contributing factor to VTE. Heart healthy diet. (7) Proximal humerus fracture: Continue immobilization. Follow-up with Ortho. (8) DVT prophylaxis: Receiving IV heparin and warfarin for acute VTE as discussed above. (9) Discharge planning issues: Anticipated discharge to home. Family Medicine follow-up with Dr. Julita Porter. Subjective Recheck for pulmonary emboli. Patient seen in their room around 1000. Improving. Less SOB. Minimal cough. No hemoptysis. No pleuritic chest pain. Minimal epistaxis after blowing her nose. No other abnormal bruising or bleeding. Review of Systems: Constitutional- no fever. Cardiac- no anginal pain. Pulmonary- as noted above. GI- no melena, hematochezia. - no urinary symptoms. Otherwise, as noted above. .. Physical Exam Constitutional: no acute distress Eyes: + anicteric sclerae Respiratory: no respiratory distress Auscultation: lungs clear to auscultation bilaterally Cardiovascular: Rate/Rhythm: regular rate and regular rhythm Heart Sounds: no gallop, no murmur and no cardiac rub Vessels: + JVD Extremities: normal capillary refill (right fingers) and + edema (trace pretibial); no calf tenderness Gastrointestinal (Abdomen): Inspection/Auscultation: normal bowel sounds Percussion/Palpation: abdomen soft; abdomen nontender Musculoskeletal: Extremities: + extremities abnormal to inspection (RUE immobilized; mild swelling of right forearm) Skin: no rashes, warm and dry Psychiatric: Orientation: alert and oriented x 3 Results & Data Vital Signs (Past 12 Hours) Vital Signs Temp Pulse Resp BP Pulse Ox 06/11/19 15:48 36.7 C 89 18 124/68 97 06/11/19 11:37 36.6 C 83 16 123/84 97 06/11/19 07:47 36.8 C 85 18 96/67 L 97 Laboratory Results Laboratory Results - last 24 hr 06/11/19 06/11/19 06/11/19 05:58 05:58 05:58 WBC 4.60 L RBC 4.05 L Hgb 11.3 L Hct 34.7 L MCV 85.7 MCH 27.9 MCHC 32.6 RDW Std Deviation 48.4 H RDW Coeff of Cher 15.6 H Plt Count 164 MPV 10.6 H PT 16.5 H INR 1.7 H APTT 70.8 H* PTT Ratio 2.6 Sodium 138 Potassium 4.1 Chloride 107 Carbon Dioxide 25 Anion Gap 6.0 BUN 16 Creatinine 0.92 Est Cr Clr Drug Dosing 98.9 Est GFR ( Amer) 81.8 Est GFR (Non-Af Amer) 70.6 BUN/Creatinine Ratio 16.9 Glucose 95 Calcium 8.6 06/11/19 13:02 WBC RBC Hgb Hct MCV MCH MCHC RDW Std Deviation RDW Coeff of Cher Plt Count MPV PT INR APTT 60.1 H* PTT Ratio 2.2 Sodium Potassium Chloride Carbon Dioxide Anion Gap BUN Creatinine Est Cr Clr Drug Dosing Est GFR ( Amer) Est GFR (Non-Af Amer) BUN/Creatinine Ratio Glucose Calcium
[2019-06-11] MEDS: ACETAMINOPHEN 325 MG TAB PO PRN (17:05)
[2019-06-11] MEDS: SODIUM CHLORIDE 0.65% NA SOLN 45 ML (OCEAN) SCH ×2 (17:05→21:12)
[2019-06-11] MEDS: SENNA 8.6 MG TAB PO SCH (21:12)
[2019-06-12 07:26] LABS: INR 1.8 (0.9-1.1); Partial Thromboplastin Ratio 2.6; Prothrombin Time 18.1 Seconds (9.0-12.0)
[2019-06-12 07:52] LABS: Partial Thromboplastin Time 71.4 Seconds (21.0-31.0)
[2019-06-12] MEDS: PANTOprazole 40 MG TAB PO SCH (07:59)
[2019-06-12] MEDS: SODIUM CHLORIDE 0.65% NA SOLN 45 ML (OCEAN) SCH ×4 (07:59→20:22)
[2019-06-12] MEDS: DOCUSATE SODIUM 100 MG CAP PO SCH ×2 (07:59→20:22)
[2019-06-12] MEDS: HEPARIN SODIUM/DEXTROSE 25,000 UNITS/500 ML BAG IV SCH (10:39)
[2019-06-12 15:16] LABS: Partial Thromboplastin Ratio 1.8
[2019-06-12 15:17] LABS: Partial Thromboplastin Time 48.4 Seconds (21.0-31.0)
[2019-06-12] MEDS: WARFARIN SOD 7.5 MG TAB PO SCH (17:36)
--- NOTE | 2019-06-12 18:43 | Hospitalist Progress Note ---
Date of Service June 12, 2019 Assessment & Plan (1) Bilateral pulmonary embolism: Patient presented with several days of progressive dyspnea with some pleuritic chest discomfort. CTA demonstrated multiple bilateral pulmonary emboli (present on admission) Venous duplex of lower extremities negative for DVT. May have DVT of right upper extremity due to recent humeral fracture, but duplex imaging would be uncomfortable and could potentially displace the fracture. No recent travel. No personal history of VTE. No hormonal therapy. Non-smoker. No history of malignancy. No family history of VTE. VTE most likely provoked due to right humeral fracture and relative inactivity. Evaluation for underlying hypercoagulation disorders not indicated in acute setting. Anticoagulation options are limited due to obesity (weight 140 kg, BMI 52). Enoxaparin not recommended if wt > 120-140 kg. DOAC's not recommended if wt > 120 kg or BMI > 35-40. Outpatient Hematology consultation recommended regarding further evaluation and duration of anticoagulation. Importance of being current with routine cancer screening recommended. Treating with IV heparin day # 5 / transitioning to warfarin day # 4 with INR of 1.8. (2) Elevated troponin: Serum troponin 0.207. Elevated troponin probably due to pulmonary emboli. (3) Right ventricular dilation: CTA suggested RV strain. Echo showed dilated RV with moderately reduced RV systolic function, mild TR, estimated PAP 53 mm. RV strain probably secondary to pulmonary emboli. However, patient may have underlying sleep apnea and / or obesity hypoventilation syndrome. Check nocturnal pulse oximetry prior to discharge. Outpatient sleep study recommended. Check follow-up echo after treatment of VTE, perhaps in 3-6 months. (4) Hypertension: BP's running low at times. Holding lisinopril. BP this morning 123/80. (5) GERD (gastroesophageal reflux disease): Continue PPI. (6) Morbid obesity: Wt 140 kg. BMI 52. Morbid obesity, possibly a contributing factor to VTE. Heart healthy diet. (7) Proximal humerus fracture: Continue immobilization. Follow-up with Ortho. Due for f/u early this week- will ask Ortho to see her here. (8) DVT prophylaxis: Receiving IV heparin and warfarin for acute VTE as discussed above. (9) Discharge planning issues: Anticipated discharge to home. Family Medicine follow-up with Dr. Julita Porter. Subjective Recheck for pulmonary emboli. Patient seen in their room around 1100. Less SOB. No hemoptysis. No pleuritic chest pain. Starting to ambulate in hallway. Review of Systems: Constitutional- no fever. Cardiac- no anginal pain. Pulmonary- as noted above. GI- no melena, hematochezia. - no urinary symptoms. Otherwise, as noted above. Physical Exam Constitutional: no acute distress Eyes: + anicteric sclerae Respiratory: no respiratory distress Auscultation: lungs clear to auscu ltation bilaterally Cardiovascular: Rate/Rhythm: regular rate and regular rhythm Heart Sounds: no gallop, no murmur and no cardiac rub Vessels: + JVD Extremities: normal capillary refill (right fingers) and + edema (trace pretibial); no calf tenderness Gastrointestinal (Abdomen): normal bowel sounds, soft, nontender, no hepatosplenomegaly Inspection/Auscultation: normal bowel sounds Percussion/Palpation: abdomen soft; abdomen nontender Musculoskeletal: Extremities: + extremities abnormal to inspection (RUE immobilized; mild swelling of right forearm and dorsum of hand) Skin: no rashes, warm and dry Psychiatric: Orientation: alert and oriented x 3 Results & Data Vital Signs (Past 12 Hours) Vital Signs Temp Pulse Resp BP Pulse Ox 06/12/19 10:44 36.8 C 80 19 123/73 95 06/12/19 08:08 36.6 C 84 20 124/70 93 06/12/19 06:59 36.5 C 79 20 123/80 96 Laboratory Results INR 1.8 (0.9-1.1) H 06/12/19 06:14
[2019-06-12] MEDS: SENNA 8.6 MG TAB PO SCH (20:22)
[2019-06-13] MEDS: ACETAMINOPHEN 325 MG TAB PO PRN ×2 (00:35→17:06)
[2019-06-13] MEDS: HEPARIN SODIUM/DEXTROSE 25,000 UNITS/500 ML BAG IV SCH ×2 (04:09→22:28)
[2019-06-13 06:46] LABS: Hematocrit (blood only) 35.6 % (37-47); Hemoglobin 11.3 g/dL (12.0-16.0); Mean Corpuscular Hemoglobin 27.6 pg (25-34); Mean Corpuscular Hgb Conc 31.7 g/dL (32-36); Mean Corpuscular Volume 86.8 fL (80-100); Mean Platelet Volume 10.2 fL (7.4-10.4); Platelet Count 164 K/uL (130-400); RDW Coefficient of Variation 15.5 % (11.5-14.5); RDW Standard Deviation 49.5 fL (36.4-46.3); White Blood Count 4.72 K/uL (4.8-10.8)
[2019-06-13] MEDS: OXYCODONE HCL IR 5 MG TAB (IMMEDIATE RELEASE) PO PRN ×2 (06:52→21:24)
[2019-06-13 07:04] LABS: INR 2.2 (0.9-1.1); Partial Thromboplastin Ratio 2.8; Prothrombin Time 21.2 Seconds (9.0-12.0)
--- NOTE | 2019-06-13 07:51 | Orthopedic Progress Note ---
Date of Service June 13, 2019 Assessment & Plan (1) Proximal humerus fracture: Ordered two view humerus x-rays today for reevaluation of her fracture. We will review these. We will monitor patient's skin abrasion that was caused from brace irritation. In the meantime anticoagulation should be continued. I advised continuation of ambulating at some point today. Pain is well controlled today. Supervising Physician Co-Signing Physician Notes Agree with the physician assistant professor of nursing's note, assessment, and plan. Will evaluate in the morning. Please provide skin care about the brace, which can be repositioned to offload impingement areas. Brace impingement likely worsened with supine position. Please provide dressings prn to area of skin breakdown. Continue to recommend nonoperative treatment in a brace, particularly in light of needed anticoagulation. Pham Gunderson is a 53 year old female who suffered a proximal humerus fracture on 05/23/19. She has recently been undergoing treatment with Coumadin for bilateral pulmonary embolism that she experienced 06/08/19. States she is no longer having symptoms of shortness of breath or chest pain. States she has been ambulating on Thursday and Thursday without difficulty. She plans to do the same today. Her pain is overall well controlled but she does complain of occasional muscle spasms in her right arm. She is hoping to be discharged tomorrow. Review of Systems Review of Systems: ROS per HPI, all other systems reviewed and negative Physical Exam Constitutional: WD/WN, vitals as above cooperative, comfortable and + overweight Eyes: PERRL, conjunctivae normal, anicteric sclerae Musculoskeletal: Shoulder: + shoulder abnormal to inspection and + skin erythema Brace is digging into patients skin. I readjusted her brace to hopefully prevent further irritation. Cleaned previous wound opening. Skin: Trauma: + evidence of skin trauma Psychiatric: A+Ox3, euthymic affect Orientation: cooperative Eye Contact: good eye contact Results & Data Vital Signs (Past 12 Hours) Vital Signs Temp Pulse Resp BP Pulse Ox 06/13/19 03:13 36.3 C L 80 20 125/68 96 06/13/19 00:22 36.4 C L 81 22 124/62 95 06/12/19 20:00 36.5 C 81 18 138/83 97 PG Care Time/CCT Total # of Minutes Spent Total Time Spent with Patient: Total time spent is greater than 50% in coordination of care (as documented) at patient's floor/unit and/or counseling patient:
--- NOTE | 2019-06-13 08:49 | XRay Report ---
XR humerus RT 2V CLINICAL HISTORY: right proximal humerus fracture reassessment COMPARISON: Right humerus radiographs May 23, 2019 and May 20, 2019. FINDINGS: A moderately displaced oblique fracture of the proximal diaphysis of the right humerus is similar to exam of May 23, 2019. Angulation at the level of the fracture is again noted. No daxa tional fractures are noted. Alignment of the right elbow and shoulder appears anatomic. IMPRESSION: No significant change in appearance of the moderately displaced oblique proximal diaphyse al fracture of the right humerus. Electronically signed by: Niels Henry M.D. 06/13/2019 8:47 AM
[2019-06-13] MEDS: PANTOprazole 40 MG TAB PO SCH (09:16)
[2019-06-13] MEDS: DOCUSATE SODIUM 100 MG CAP PO SCH ×2 (09:16→21:20)
[2019-06-13] MEDS: SODIUM CHLORIDE 0.65% NA SOLN 45 ML (OCEAN) SCH ×4 (09:17→21:19)
[2019-06-13 09:44] LABS: Partial Thromboplastin Time 74.7 Seconds (21.0-31.0)
[2019-06-13 14:23] LABS: Partial Thromboplastin Ratio 2.2
[2019-06-13 14:25] LABS: Partial Thromboplastin Time 59.8 Seconds (21.0-31.0)
[2019-06-13] MEDS: WARFARIN SOD 7.5 MG TAB PO SCH (17:05)
--- NOTE | 2019-06-13 17:25 | Hospitalist Progress Note ---
Date of Service June 13, 2019 Assessment & Plan (1) Bilateral pulmonary embolism: Patient presented with several days of progressive dyspnea with some pleuritic chest discomfort. CTA demonstrated multiple bilateral pulmonary emboli (present on admission) Venous duplex of lower extremities negative for DVT. May have DVT of right upper extremity due to recent humeral fracture, but duplex imaging would be uncomfortable and could potentially displace the fracture. No recent travel. No personal history of VTE. No hormonal therapy. Non-smoker. No history of malignancy. No family history of VTE. VTE most likely provoked due to right humeral fracture and relative inactivity. Evaluation for underlying hypercoagulation disorders not indicated in acute setting. Anticoagulation options are limited due to obesity (weight 140 kg, BMI 52). Enoxaparin not recommended if wt > 120-140 kg. DOAC's not recommended if wt > 120 kg or BMI > 35-40. Outpatient Hematology consultation recommended regarding further evaluation and duration of anticoagulation. Importance of being current with routine cancer screening recommended. Treating with IV heparin day # 6 / transitioning to warfarin day # 5 with INR of 2.2. (2) Elevated troponin: Serum troponin 0.207. Elevated troponin probably due to pulmonary emboli. (3) Right ventricular dilation: CTA suggested RV strain. Echo showed dilated RV with moderately reduced RV systolic function, mild TR, estimated PAP 53 mm. RV strain probably secondary to pulmonary emboli. However, patient may have underlying sleep apnea and / or obesity hypoventilation syndrome. Check nocturnal pulse oximetry prior to discharge. Outpatient sleep study recommended. Check follow-up echo after treatment of VTE, perhaps in 3-6 months. (4) Hypertension: BP's running low at times. Holding lisinopril. BP this morning 113/71. (5) GERD (gastroesophageal reflux disease): Continue PPI. (6) Morbid obesity: Wt 140 kg. BMI 52. Morbid obesity, possibly a contributing factor to VTE. Heart healthy diet. (7) Proximal humerus fracture: Continue immobilization. Follow-up with Ortho. (8) DVT prophylaxis: Receiving IV heparin and warfarin for acute VTE as discussed above. (9) Discharge planning issues: Anticipated discharge to home. Family Medicine follow-up with Dr. Julita Porter. Subjective Recheck for pulmonary emboli. Patient seen in their room around 1105. Less SOB. No hemoptysis. No pleuritic chest pain. No abnormal bleeding or bruising. Ambulating in hallway. Review of Systems: Constitutional- no fever. Cardiac- no anginal pain. Pulmonary- as noted above. GI- no melena, hematochezia. - no urinary symptoms. Otherwise, as noted above. Physical Exam Constitutional: no acute distress Eyes: + anicteric sclerae Respiratory: no respiratory distress Auscultation: lungs clear to auscultation bilaterally Cardiovascular: Rate/Rhythm: regular rate and regular rhythm Heart Sounds: no gallop, no murmur and no cardiac rub Vessels: + JVD Extremities: normal capillary refill (right fingers) and + edema (trace pretibial); no calf tenderness Gastrointestinal (Abdomen): normal bowel sounds, soft, nontender, no hepatosplenomegaly Inspection/Auscultation: normal bowel sounds Percussion/Palpation: abdomen soft; abdomen nontender Musculoskeletal: Extremities: + extremities abnormal to inspection (RUE immo bilized; mild swelling of right forearm and dorsum of hand) Skin: no rashes, warm and dry Psychiatric: Orientation: alert and oriented x 3 Results & Data Vital Signs (Past 12 Hours) Vital Signs Temp Pulse Resp BP Pulse Ox 06/13/19 15:38 36.7 C 79 18 148/80 H 97 06/13/19 12:00 36.5 C 91 H 18 155/86 H 97 06/13/19 07:00 36.5 C 64 16 113/71 97 Laboratory Results Laboratory Results - last 24 hr 06/13/19 06/13/19 06/13/19 06:32 06:32 13:50 WBC 4.72 L RBC 4.10 L Hgb 11.3 L Hct 35.6 L MCV 86.8 MCH 27.6 MCHC 31.7 L RDW Std Deviation 49.5 H RDW Coeff of Cher 15.5 H Plt Count 164 MPV 10.2 PT 21.2 H INR 2.2 H APTT 74.7 H* 59.8 H* PTT Ratio 2.8 2.2
[2019-06-13] MEDS: SENNA 8.6 MG TAB PO SCH (21:20)
[2019-06-14] MEDS: ACETAMINOPHEN 325 MG TAB PO PRN (03:33)
[2019-06-14 07:32] LABS: INR 2.5 (0.9-1.1); Partial Thromboplastin Ratio 2.4; Prothrombin Time 24.3 Seconds (9.0-12.0)
[2019-06-14 07:42] LABS: Partial Thromboplastin Time 64.9 Seconds (21.0-31.0)
[2019-06-14] MEDS: SODIUM CHLORIDE 0.65% NA SOLN 45 ML (OCEAN) SCH (09:06)
[2019-06-14] MEDS: DOCUSATE SODIUM 100 MG CAP PO SCH (09:07)
[2019-06-14] MEDS: PANTOprazole 40 MG TAB PO SCH (09:07)
[2019-06-14 12:13] VITALS: BP 155/81; TEMP 97.5; O2SAT 96
[2019-06-14 12:51] VITALS: PULSE 87
--- NOTE | 2019-06-15 06:27 | Hospitalist Progress Note ---
Date of Service June 14, 2019 Assessment & Plan (1) Bilateral pulmonary embolism: Patient presented with several days of progressive dyspnea with some pleuritic chest discomfort. CTA demonstrated multiple bilateral pulmonary emboli (present on admission) Venous duplex of lower extremities negative for DVT. May have DVT of right upper extremity due to recent humeral fracture, but duplex imaging would be uncomfortable and could potentially displace the fracture. No recent travel. No personal history of VTE. No hormonal therapy. Non-smoker. No history of malignancy. No family history of VTE. VTE most likely provoked due to right humeral fracture and relative inactivity. Evaluation for underlying hypercoagulation disorders not indicated in acute setting. Anticoagulation options are limited due to obesity (weight 140 kg, BMI 52). Enoxaparin not recommended if wt > 120-140 kg. DOAC's not recommended if wt > 120 kg or BMI > 35-40. Outpatient Hematology consultation recommended regarding further evaluation and duration of anticoagulation. Importance of being current with routine cancer screening recommended. Treating with IV heparin day # 7 / transitioning to warfarin day # 6 with INR of 2.5. INR therapeutic x 2 days, overlapping with IV heparin. DC heparin. Continue warfarin- discharge dose 5 mg daily[address]erred to [facility] for warfarin management. Given instructions on VTE. Duration of anticoagulation to be determined, but should be at least 3-6 months. Outpatient referral to Hematology advised for further recommendations. (2) Elevated troponin: Serum troponin 0.207. Elevated troponin probably due to pulmonary emboli. (3) Right ventricular dilation: CTA suggested RV strain. Echo showed dilated RV with moderately reduced RV systolic function, mild TR, estimated PAP 53 mm. RV strain probably secondary to pulmonary emboli. However, patient may have underlying sleep apnea and / or obesity hypoventilation syndrome. Check nocturnal pulse oximetry prior to discharge. Outpatient sleep study recommended. Follow-up echo in 3-6 months recommended. Referral to Pulmonary Medicine would be appropriate if significant RV abnormalities or pulmonary hypertension persist. (4) Hypertension: BP's running low at times, then improved. Continue lisinopril. (5) GERD (gastroesophageal reflux disease): Continue PPI. (6) Morbid obesity: Wt 140 kg. BMI 52. Morbid obesity, possibly a contributing factor to VTE. Heart healthy diet. (7) Proximal humerus fracture: Continue immobilization. Follow-up with Ortho. (8) DVT prophylaxis: Received IV heparin and warfarin for acute VTE as discussed above. (9) Discharge planning issues: Discharge to home. Family Medicine follow-up with Dr. Julita Porter. Orthopedics follow-up with Dr. Mark. Subjective Recheck for pulmonary emboli. Doing well. Less SOB. No hemoptysis. No pleuritic chest pain. No abnormal bleeding or bruising. Ambulating laps in hallway. Review of Systems: Constitutional- no fever. Cardiac- no anginal pain. Pulmonary- as noted above. GI- no melena, hematochezia. - no urinary symptoms. Otherwise, as noted above. Physical Exam Constitutional: no acute distress Eyes: + anicteric sclerae Respiratory: no respiratory distress Auscultation: lungs clear to auscultation bilaterally Cardiovascular: Rate/Rhythm: regular rate and regular rhythm Heart Sounds: no gallop, no murmur and no cardiac rub Vessels: + JVD Extremities: normal capillary refill (right fingers) and + edema (trace pretibial); no calf tenderness Gastrointestinal (Abdomen): normal bowel sounds, soft, nontender, no hepatosplenomegaly Inspection/Auscultation: normal bowel sounds Percussion/Palpation: abdomen soft; abdomen nontender Musculoskeletal: Extremities: + extremities abnormal to inspection (RUE immobilized; mild swelling of right forearm and dorsum of hand) Skin: no rashes, warm and dry Psychiatric: Orientation: alert and oriented x 3 Results & Data Laboratory Results INR 2.5.
--- NOTE | 2019-06-16 08:59 | Discharge Summary ---
Date of Service Date of Admission: 06/08/19 Date of Discharge: 06/14/19 Admission HPI Per Admitting Provider 53-year-old female who presents the ED for evaluation of chest pain shortness of breath. On 05/20, patient suffered a fall at work and subsequently fractured her right humerus. Since that time, patient has been resting at home and that has been rather sedentary. Over the past 1 week, she is noted increasing shortness of breath and pleuritic chest pain. She is noted increasing lower extremity edema. Patient therefore presented to the ED for further evaluation. In the ED, patient is found to have acute bilateral pulmonary embolism. Patient denies lightheadedness, dizziness, diaphoresis, syncopal events. No abdominal pain, nausea, vomiting, diarrhea. Denies fevers and chills. No urinary symptoms. In the ED, patient was mildly tachycardic however otherwise h emodynamically stable. She is saturating well on room air. She was started on an IV heparin drip. Principal Diagnosis bilateral pulmonary emboli (present on admission) Discharge Data Allergies Allergy/AdvReac Type Severity Reaction Status Date / Time No Known Allergies Allergy Verified 06/15/19 09:05 Consultations 06/08/19 14:58 ED Decision to Admit Stat 06/13/19 07:00 Consult Orthopedic Surgery Routine Ordered Studies 06/08/19 13:40 CT angio chest PE protocol Stat 06/08/19 16:55 US venous doppler LE Routine Hospital Course (1) Bilateral pulmonary embolism: Patient presented with several days of progressive dyspnea with some pleuritic c hest discomfort. CTA demonstrated multiple bilateral pulmonary emboli (present on admission) Venous duplex of lower extremities negative for DVT. May have DVT of right upper extremity due to recent humeral fracture, but duplex imaging would be uncomfortable and could potentially displace the fracture. No recent travel. No personal history of VTE. No hormonal therapy. Non-smoker. No history of malignancy. No family history of VTE. VTE most likely provoked due to right humeral fracture and relative inactivity. Evaluation for underlying hypercoagulation disorders not indicated in acute setting. Anticoagulation options are limited due to obesity (weight 140 kg, BMI 52). Enoxaparin not recommended if wt > 120-140 kg. DOAC's not recommended if wt > 120 kg or BMI > 35-40. Outpatient Hematology consultation recommended regarding further evaluation and duration of anticoagulation. Importance of being current with routine cancer screening recommended. Treated with IV heparin x 7 days / transitioned to warfarin with 2 days of overlapping therapy with therapeutic INR. INR day of discharge 2.5. Continue warfarin with discharge dose of 5 mg daily. Referred to [facility] for warfarin management. Given instructions on VTE. Duration of anticoagulation to be determined, but should be at least 3-6 months. Outpatient referral to Hematology advised for further recommendations. (2) Elevated troponin: Serum troponin 0.207. Elevated troponin probably due to pulmonary emboli. (3) Right ventricular dilation: CTA suggested RV strain. Echo showed dilated RV with moderately reduced RV systolic function, mild TR, estimated PAP 53 mm. RV strain probably secondary to pulmonary emboli. However, patient may have underlying sleep apnea and / or obesity hypoventilation syndrome. Check nocturnal pulse oximetry prior to discharge. Outpatient sleep study recommended. Follow-up echo in 3-6 months recommended. Referral to Pulmonary Medicine would be appropriate if significant RV abnormalities or pulmonary hypertension persist. (4) Hypertension: BP's running low at times, then improved. Continue lisinopril. (5) GERD (gastroesophageal reflux disease): Continue PPI. (6) Morbid obesity: Wt 140 kg. BMI 52. Morbid obesity, possibly a contributing factor to VTE. Heart healthy diet. (7) Proximal humerus fracture: Continue immobilization. Follow-up with Ortho. (8) DVT prophylaxis: Received IV heparin and warfarin for acute VTE as discussed above. (9) Discharge planning issues: Discharge to home. Family Medicine follow-up with Dr. Julita Porter. Orthopedics follow-up with Dr. Mark. Total Time Total Time Spent Total Time Spent (In Minutes): 45 Discharge Plan Discharge Items Patient Disposition: Home - Self-Care Reason For Visit: shortness of breath Discharge Diagnosis: pulmonary emboli- blood clots in lungs Condition on Discharge: Good Activity: As commented below Activity Comment: gradually increase activity as tolerated Lifting Comment: as instructed by Orthopedics Non-emergency contact: Primary Care Provider, Hospitalist and Surgeon Call non-emergency contact if: you have any medication questions, your symptoms worsen and you have a fever Follow-up/Referrals: Julita Porter DO [Primary Care Provider] - (06/17/2019 10:30 AM Julita Porter DO ) Diet: Heart Healthy Addtl Attending Provider Instructions: MEDICATION CHANGES: Start warfarin (Coumadin). Initial dose is 5 mg daily- first dose at home Thursday 06/14. Further instructions per [facility]. Avoid anti-inflammatory medicines like aspirin, ibuprofen (Advil, Motrin), naproxen (Aleve), meloxicam (Mobic). They can cause bleeding ulcers when you take blood thinners. SUMMARY OF TEST RESULTS: CT scan of chest showed pulmonary emboli (blood clots) in both lungs. Ultrasound of legs did not show any blood clots. Echocardiogram (ultrasound of heart) showed enlarged right ventricular- could be from pulmonary emboli or possibly from sleep apnea. INR day of discharge was 2.5. RECOMMENDATIONS FOR FOLLOW-UP: Please ask Dr. Porter to arrange for a consultation with Hematology about your pulmonary emboli. How long to treat? Any need for additional testing. [facility] will help you manage your warfarin (Coumadin). They will be contacting you. Please ask Dr. Porter to: arrange for a repeat echocardiogram in 3-6 months arrange for a sleep study Orthopedic Surgery follow-up with Dr. Mark. INSTRUCTIONS FOR PULMONARY EMBOLI & WARFARIN: Medication Instructions: * Warfarin is a medicine prescribed to prevent blood clots * Warfarin will thin your blood and help prevent new clots * Take your medications exactly as directed * Never skip a dose. Never take a double dose. If you miss a dose, take it as soon as you remember * It is important for your doctor to monitor your prothrombin time (PT). This is a lab test * Keep your appointment for lab tests Risk of Adverse Drug Reactions and Interactions: * Warfarin increases your risk of bleeding * The food you eat and other medications you take can affect how Warfarin works in your body * Ask your doctor about daily aspirin therapy * It is very important to talk with your doctor about all of the other medicines, antibiotics, vitamins or herbal products that you are taking * All of your medication must be approved by your doctor, including new medicines, as well as medicines you have taken before you started taking Warfarin Diet: * In order for Warfarin to work properly, it is important to keep your intake of Vitamin K as consistent as possible * You should avoid any sudden change in Vitamin K intake * Report any significant changes in your diet or weight to your doctor Call your Primary Care doctor if you experience any of the following: * Swelling or Pain in your leg * Sudden, continuous pain deep in a muscle * Pain that worsens when you are active or when you stand still for a long time * Chest Pain * Sudden Shortness of Breath * Rapid or pounding heart beat * Fainting * Dizziness * Cough with blood or bloody sputum * Sweating more than normal * Bruises * Heavy or uncontrolled bleeding * Blood in your urine, stool or vomit * Black or tarry stools Caring for Your Self at Home: * Avoid sitting, standing or lying down for long periods without moving your legs and feet * When traveling by car, stop to get out and move around at least once every 3 hours * On long airplane, train or bus rides, get up and move around when possible * If you can't get up, wiggle your toes and tighten your calves to keep your blood moving Follow Up: It is important for you to keep your follow up appointments with your medical provider. OTHER INSTRUCTIONS: Seek medical attention if you have: * temperature above 101 * chest pain or trouble breathing * abdominal pain, nausea, vomiting * diarrhea, dark stools or bloody stools * any unanswered questions or concerns Call [phone] if symptoms are severe. Please take good care of yourself. Call if you have any questions or problems. You can reach a [facility] hospitalist on duty at [facility] 24 hours a day by calling [phone]. My cell # is [phone]. Pending Studies at Discharge: No Stand-Alone Forms: My [facility], Smoking Cessation Medications and DC Order Prescriptions: New warfarin 5 mg tablet 5 mg PO DAILY Qty: 30 RF: 5 Continued lisinopril 20 mg tablet 20 mg PO QAM RF: 0 sennosides [Senokot] 8.6 mg tablet 8.6 mg PO HS Qty: 30 RF: 0 docusate sodium [Colace] 100 mg capsule 100 mg PO BID Qty: 60 RF: 0 oxycodone 5 mg tablet 5 mg PO Q6H PRN (Reason: ARM PAIN) RF: 0 omeprazole 40 mg Capsule,Delayed Release(Dr/Ec) 40 mg PO DAILY RF: 0 Changed acetaminophen [Tylenol Extra Strength] 500 mg Tablet 1,000 mg PO TID PRN (Reason: Pain) Qty: 0 RF: 0 Discontinued meloxicam 15 mg tablet 15 mg PO BID RF: 0 Discharge Orders: Discharge Order (Routine); Ordered 06/14/19 Ordered By: Mahendra Taylor Admission Data Admit Date/Time: 06/08/19 15:35 Attending Provider: Mahendra Taylor Admit Provider: Vini Yee Primary Care Provider: Julita Porter Other Providers: Vini Yee ; Seng Mark Other Interventions: Discharge Summary Assessment (RN) Last Done: 06/14/19 12:48 DC Date/Time DO NOT enter until pt leaves facility: 06/14/19 13:11
== END 2019-06-14 13:11 | disposition home or self-care (01) | DRG 176 ==
LOC: ED 12:23 → SUATTDRO 15:35 → 2S 15:35

== ENCOUNTER 2020-02-10 15:57 | Inpatient (IN) ==
[2020-02-10] MEDS ORDERED: HYDROmorphone INJ 1 MG/ML SYRINGE IV PRN (16:16)
[2020-02-10] MEDS ORDERED: ONDANSETRON INJ 2 MG/ML 2 ML VIAL IV STA (16:16)
[2020-02-10] MEDS ORDERED: MAGNESIUM SULFATE / D5W 1 GM/100 ML BAG IV STA (16:25)
[2020-02-10 17:16] LABS: Partial Thromboplastin Ratio 0.8; Partial Thromboplastin Time 23.5 Seconds (21.0-31.0); Prothrombin Time 10.3 Seconds (9.0-12.0)
[2020-02-10 17:25] LABS: iSTAT Creatinine 0.9 mg/dl (0.6-1.3); iSTAT Hemoglobin 12.9 g/dl (12.0-16.0); iSTAT Ionized Calcium 1.12 mmol/l (1.12-1.32)
[2020-02-10] MEDS ORDERED: OPTIRAY 320 125ml IV ONE (17:29)
[2020-02-10 17:30] LABS: Basophils # (auto) 0.02 K/uL (0-0.2); Basophils % (auto) 0.2 %; Eosinophils # (auto) 0.09 K/uL (0-0.5); Eosinophils % (auto) 0.8 %; Hematocrit (blood only) 36.7 % (37-47); Hemoglobin 11.5 g/dL (12.0-16.0); Immature Granulocytes # (auto) 0.04 K/uL (0.00-0.02); Immature Granulocytes % (auto) 0.4 %; Lymphocytes # (auto) 0.81 K/uL (1.2-3.4); Lymphocytes % (auto) 7.4 %; Mean Corpuscular Hemoglobin 26.6 pg (25-34); Mean Corpuscular Hgb Conc 31.3 g/dL (32-36); Mean Platelet Volume 10.3 fL (7.4-10.4); Monocytes # (auto) 1.02 K/uL (0.11-0.59); Monocytes % (auto) 9.3 %; Neutrophils # (auto) 8.99 K/uL (1.4-6.5); Neutrophils % (auto) 81.9 %; Platelet Count 185 K/uL (130-400); RDW Coefficient of Variation 16.6 % (11.5-14.5); RDW Standard Deviation 51.8 fL (36.4-46.3); Red Blood Count 4.32 M/uL (4.2-5.4); White Blood Count 10.97 K/uL (4.8-10.8)
--- NOTE | 2020-02-10 17:33 | XRay Report ---
XR chest 1V portable HISTORY: 54 years-old Female Chest Pain acute atypical chest pain COMPARISON: CTA of the chest 06/08/2019 TECHNIQUE: Portable AP view of the chest FINDINGS: Cardiac silhouette is moderately enlarged, unchanged. There is no pneumothorax, pleural effusion, air space consolidation or overt pulmonary edema. Bones of the chest appear grossly intact. Partially tory ged hardware of the right proximal humerus with adjacent skin morena. IMPRESSION: Cardiomegaly without acute process. ACT 112: Negative or not required by law. The above report was generated using voice recognition software. It may contain grammatical, syntax o r spelling errors. Electronically signed by: Aravind Walter M.D. 02/10/2020 5:32 PM
[2020-02-10 17:38] LABS: Albumin Level 2.8 gm/dl (3.4-5.0); BUN Creatinine Ratio 15.5 (10-20); Calcium 8.4 mg/dl (8.5-10.1); Creatinine Clr Calc Pharmacy 79.9 ml/min; Est GFR (African American) 61.4
[2020-02-10 17:41] LABS: Albumin Globulin Ratio 0.6 (0.9-2); Bilirubin,Total 0.3 mg/dl (0.2-1); Creatine Kinase MB 2.8 ng/ml (0.5-3.6); Globulin 4.3 gm/dl (2.5-4.0); Total Protein 7.1 gm/dl (6.4-8.2); Troponin I 1.12 ng/ml (0-0.045)
--- NOTE | 2020-02-10 17:49 | Emergency Department Note ---
History of Present Illness General Chief complaint: Shortness of Breath/Dyspnea Stated complaint: SOB Time Seen by Provider: 02/10/20 16:00 Source: patient, EMS, RN notes reviewed and old records reviewed Mode of arrival: EMS Limitations: no limitations History of Present Illness Provider complaint: Shortness of breath Onset (ago): hour(s) 2 Location: chest Radiation: back Severity: moderate Pain Consistency: + intermittent Maximum Pain Intensity: 6 Current Pain Intensity: 6 Quality: + aching Relieved By: + immobilization Exacerbated By: + movement Associated symptoms: + chest pain; no diaphoresis, no fever/chills, no headaches and no nausea/vomiting Treatments prior to arrival: none This is a 54-year-old female who presents emergency department complaining of chest pain as well as shortness of breath. The patient has had a complicated history as of late due to a humerus fracture back in April. The patient finally had a surgical repair of the humerus done on Thursday at [facility]. The patient developed chest pain as well as shortness of breath several hours ago. She does have a history of PEs and had been on Coumadin for approximately 6 months prior to having the surgery. Home Medications Home Medications Medication Instructions Recorded Confirmed Type lisinopril 20 mg tablet 20 mg PO QAM 04/20/19 02/10/20 History omeprazole 40 mg PO DAILY 06/08/19 02/10/20 History acetaminophen [Tylenol Extra 1,000 mg PO TID PRN #0 tab 06/14/19 02/10/20 Rx Strength] methocarbamol 750 mg tablet 750 mg PO Q8H #90 tab 08/22/19 02/10/20 Rx aspirin [Aspir-81] 81 mg PO BID 02/10/20 02/10/20 History oxycodone 5 mg PO Q4H PRN 02/10/20 02/10/20 History Allergies Allergy/AdvReac Type Severity Reaction Status Date / Time No Known Allergies Allergy Verified 02/10/20 17:49 Past Med/Surg History Medical History Anxiety no meds Diarrhea Dry eyes Dysphagia GERD (gastroesophageal reflux disease) Hyperlipidemia Hypertension Kidney stones Knee pain Morbid obesity Osteoarthritis Proximal humerus fracture Snoring Sprain of medial collateral ligament of knee Surgical History History of arthroscopy of left knee History of cholecystectomy History of ERCP History of esophagogastroduodenoscopy (EGD) History of lithotripsy History of repair of left rotator cuff History of tooth extraction History of umbilical hernia repair Status post wrist surgery right Family History Mother Family history of reaction to anesthesia nausea/vomiting, "difficulty waking up" Hypertension Denies family history of Clotting disorder Social History Smoking Status: Never smoker Second Hand Exposure: No; Do You Dip or Chew Tobacco: No; Tobacco Cessation Education Requested by Patient: No Hx Alcohol Use: No Hx Substance Use: No Preferred Language: Burmese Communication Ability: Effective Wheel Filler Required: No Beliefs That Will Affect Care: None marital status: Single Current Living Situation: Family Current Living Situation Comment: Pt has her own place, but stays with her mother often current occupational status: employed current occupation: [employer] Other Information That Helps Us Care for You: No Feels Safe at Home: Yes Safety Concerns: Feels Safe At This Time during the past year weight has: remained stable Review of Systems A total of 10 systems reviewed and were otherwise negative Physical Exam Vital Signs Vital Signs - 24 hr 02/10/20 18:30 02/10/20 18:59 02/10/20 19:01 Pulse Rate 128 H 127 H 127 H Pulse Rate from SpO2 Sensor 127 H 127 H 127 H Respiratory Rate 17 24 24 Blood Pressure 111/75 104/67 Blood Pressure Mean 84 73 Pulse Oximetry 95 92 93 Oxygen Delivery Method Nasal Cannula Nasal Cannula Nasal Cannula Oxygen Flow Rate 3 3 3 02/10/20 19:30 02/10/20 20:01 Pulse Rate 122 H 127 H Pulse Rate from SpO2 Sensor 123 H 127 H Respiratory Rate 18 19 Blood Pressure 110/82 114/96 Blood Pressure Mean 100 99 Pulse Oximetry 95 97 Oxygen Delivery Method Nasal Cannula Nasal Cannula Oxygen Flow Rate 3 3 VITAL SIGNS - Vital signs and nursing notes were reviewed. GENERAL - 54-year-old female appearing stated age who is in no acute distress. Communicates well with provider and answers questions appropriately. SKIN - Without rashes. HEAD - NC/AT. EYES - PERRL with EOMI bilaterally. Sclera anicteric. Palpebral conjunctiva pink and moist with no injection noted. EARS - No deformities of external structures noted on gross examination bi laterally. No pain elicited with palpation of the tragus bilaterally. External auditory canals without discharge or otorrhea. Tympanic membranes pearly warren without retraction or bulging. No fluid or purulent material visualized behind the TM. Handle of malleus, umbo, cone of light, pars tensa/flaccid all easily visualized. NOSE - Midline and without cyanosis. No epistaxis or purulent drainage noted. Septum midline without deviation or septal hematoma noted. MOUTH/OROPHARYNX - Without perioral cyanosis. Buccal mucosa pink and moist and without leukoplakia. Tongue midline with equal elevation of palate bilaterally. No tonsillar hypertrophy, erythema, or exudates noted. dentition noted. NECK - Neck with FROM. Supple to palpation. lymphadenopathy noted. No nuchal rigidity. LUNGS - Chest wall symmetric without accessory muscle use, intercostals retractions, or central cyanosis. Normal vesicular breath sounds CTA B/L. No wheezes, rales, or rhonchi appreciated. CARDIAC - RRR with S1/S2. No murmur, rubs, or gallops appreciated. ABDOMEN - Abdominal contour without pulsations or visible masses. BS normoactive all four quadrants. No tenderness, palpable masses, hepatosplenomegaly, or ascites noted. EXTREMITIES - No clubbing or peripheral cyanosis. No pretibial edema present. +3/5 radial, posterior tibial, and dorsalis pedis pulses palpated throughout. +5/5 strength noted in UE/LE bilaterally. NEUROLOGIC - Cranial nerves II through XII grossly intact. Sensory intact to light touch throughout. Patellar reflexes +2/4. PSYCH - A&Ox3 and cooperates fully with examiner. Pt is very pleasant and interacts well with examiner. Course Administered Medications Heparin Sodium/Dextrose (Heparin Sodium/Dextrose) 25,000 units in 500 mls @ 36 mls/hr IV .[id number] [facility]; Protocol Stop: 03/11/20 18:44 Last Titration: 02/11/20 12:37 Dose: 1,800 units/hr, 36 mls/hr Documented by: [id number] Cosigned by: [id number] Titration: 02/11/20 11:25 Dose: 0 units/hr, 0 mls/hr Documented by: [id number] Cosigned by: [id number] Admin: 08/15/20 08:17 Dose: 2,000 units/hr, 40 mls/hr Documented by: [id number] Cosigned by: [id number] Titration: 02/11/20 08:17 Dose: 2,000 units/hr, 40 mls/hr Documented by: [id number] Cosigned by: [id number] Titration: 02/11/20 07:14 Dose: 2,000 units/hr, 40 mls/hr Documented by: [id number] Cosigned by: [id number] Titration: 02/11/20 03:33 Dose: 2,000 units/hr, 40 mls/hr Documented by: [id number] Cosigned by: [id number] Admin: 02/10/20 18:56 Dose: 1,650 units/hr, 33 mls/hr Documented by: [id number] Cosigned by: [id number] Lisinopril (Lisinopril 20 Mg Tab) 20 mg PO QAM [facility] Stop: 03/12/20 08:59 Last Admin: 02/11/20 08:18 Dose: 20 mg Documented by: [id number] Oxycodone HCl (Oxycodone Hcl Ir 5 Mg Tab (Immediate Release)) 5 mg PO Q4H PRN PRN Reason: Pain Stop: 02/25/20 00:04 Last Admin: 02/11/20 16:50 Dose: 5 mg Documented by: [id number] Admin: 02/11/20 08:16 Dose: 5 mg Documented by: [id number] Admin: 02/11/20 01:16 Dose: 5 mg Documented by: [id number] Pantoprazole Sodium (Pantoprazole 40 Mg Tab) 40 mg PO DAILY [facility] Stop: 03/12/20 08:59 Last Admin: 02/11/20 08:18 Dose: 40 mg Documented by: [id number] Warfarin Sodium (Warfarin Sod 7.5 Mg Tab) 7.5 mg PO DAILY@1600 [facility] Stop: 03/12/20 15:59 Last Admin: 02/11/20 16:49 Dose: 7.5 mg Documented by: [id number] Discontinued Medications Heparin Sodium/Dextrose (Heparin Iv Standard *No* Bolus) 1 ea N/A ONE ONE; Protocol Stop: 02/10/20 18:41 Last Admin: 02/10/20 18:56 Dose: 1 ea Documented by: [id number] Hydromorphone HCl (Hydromorphone Inj 1 Mg/Ml Syringe) 1 mg IV Q15M PRN PRN Reason: Pain Stop: 02/24/20 16:15 Last Admin: 02/10/20 16:30 Dose: 1 mg Documented by: [id number] Magnesium Sulfate/Dextrose (Magnesium Sulfate / D5w) 1 gm in 100 mls @ 100 mls/hr IV NOW STA Stop: 02/10/20 17:24 Last Infusion: 02/10/20 18:56 Dose: 0 mls/hr Documented by: [id number] Admin: 02/10/20 17:59 Dose: 100 mls/hr Documented by: [id number] Parenteral Electrolytes (Normosol-R) 250 mls @ 150 mls/hr IV .Q1H40M ONE Stop: 02/10/20 21:08 Last Admin: 02/10/20 21:07 Dose: Not Given Documented by: [id number] Parenteral Electrolytes (Normosol-R) 1,000 mls @ 100 mls/hr IV .Q10H STA Stop: 02/11/20 06:05 Last Infusion: 02/11/20 11:13 Dose: 0 mls/hr Documented by: [id number] Infusion: 02/11/20 03:51 Dose: 100 mls/hr Documented by: [id number] Infusion: 02/11/20 01:12 Dose: 0 mls/hr Documented by: [id number] Admin: 02/10/20 21:14 Dose: 100 mls/hr Documented by: [id number] Magnesium Sulfate/Dextrose (Magnesium Sulfate / D5w) 1 gm in 100 mls @ 50 mls/hr IV ONE ONE Stop: 02/11/20 02:04 Last Infusion: 02/11/20 03:57 Dose: 0 mls/hr Documented by: [id number] Admin: 02/11/20 01:46 Dose: 50 mls/hr Documented by: [id number] Heparin Sodium (Porcine) 7,000 (units/ Syringe) 7 mls @ 10 mls/min IV ONE ONE Stop: 02/11/20 03:21 Last Admin: 02/11/20 03:33 Dose: 10 mls/min Documented by: [id number] Cosigned by: [id number] Ioversol (Optiray 320 125ml) 118 ml IV ONCE ONE Stop: 02/10/20 17:30 Last Admin: 02/10/20 17:29 Dose: 118 ml Documented by: [id number] Ondansetron HCl (Ondansetron Inj 2 Mg/Ml 2 Ml Vial) 4 mg IV NOW STA Stop: 02/10/20 16:17 Last Admin: 02/10/20 16:30 Dose: 4 mg Documented by: [id number] Critical Care Time I have personally spent greater than 30 minutes of critical care time in the direct management of this patient. This includes bedside care, interpretation of diagnostic studies, and testing, discussion with consultants, patient, and family members, and other required patient management activities. This 30 minutes is in excess of all separately billable procedures. Medical Decision Making Differential Diagnosis Cardiac ischemia, aortic dissection, pulmonary embolism, pneumothorax, pneumonia, pericarditis, myocarditis, esophageal rupture, GERD, cholecystitis, pancreatitis, musculoskeletal, as well as other pathologies. Medical Records Attestation: I reviewed the patient's medical records. Home Medications Current Medication List: was personally reviewed by me Laboratory Data Attestation: I reviewed the patient's lab results. Result diagrams: 02/11/20 06:26 02/11/20 06:26 Lab Results 02/10/20 02/10/20 02/10/20 Range/Units 16:40 16:54 16:54 WBC 10.97 H (4.8-10.8) K/uL RBC 4.32 (4.2-5.4) M/uL Hgb 11.5 L (12.0-16.0) g/dL POC Hgb (12.0-16.0) g/dl Hct 36.7 L (37-47) % POC Hct (37-47) % MCV 85.0 (80-100) fL MCH 26.6 (25-34) pg MCHC 31.3 L (32-36) g/dL RDW Std Deviation 51.8 H (36.4-46.3) fL RDW Coeff of Cher 16.6 H (11.5-14.5) % Plt Count 185 (130-400) K/uL MPV 10.3 (7.4-10.4) fL Immature Gran % (Auto) 0.4 % Neut % (Auto) 81.9 % Lymph % (Auto) 7.4 % Obion % (Auto) 9.3 % Eos % (Auto) 0.8 % Baso % (Auto) 0.2 % Neut # (Auto) 8.99 H (1.4-6.5) K/uL Lymph # (Auto) 0.81 L (1.2-3.4) K/uL Obion # (Auto) 1.02 H (0.11-0.59) K/uL Eos # (Auto) 0.09 (0-0.5) K/uL Baso # (Auto) 0.02 (0-0.2) K/uL Immature Gran # (Auto) 0.04 H (0.00-0.02) K/uL PT 10.3 (9.0-12.0) Seconds INR 1.0 (0.9-1.1) APTT 23.5 (21.0-31.0) Seconds PTT Ratio 0.8 POC Sodium (135-144) mmol/L Sodium 138 (136-145) mmol/L POC Potassium (3.3-5.0) mmol/L Potassium 4.0 (3.5-5.1) mmol/L POC Chloride (101-112) mmol/L Chloride 110 H (98-107) mmol/L Carbon Dioxide 20 L (21-32) mmol/L POC Total CO2 (24-31) mmol/L Anion Gap 8.0 (3-11) POC Anion Gap (16-25) mmol/L POC BUN (7-18) mg/dl BUN 18 (7-18) mg/dl Creatinine 1.16 (0.6-1.2) mg/dl POC Creatinine (0.6-1.3) mg/dl Est Cr Clr Drug Dosing 79.9 ml/min Est GFR ( Amer) 61.4 Est GFR (Non-Af Amer) 53.0 BUN/Creatinine Ratio 15.5 (10-20) Glucose 138 H (70-99) mg/dl POC Glucose (other) (70-99) mg/dl Calcium 8.4 L (8.5-10.1) mg/dl POC Ioniz Calcium Mignon (1.12-1.32) mmol/l Total Bilirubin 0.3 (0.2-1) mg/dl AST 43 H (15-37) U/L ALT 66 (12-78) U/L Alkaline Phosphatase 92 (45-117) U/L Total Creatine Kinase 231 H (26-192) U/L CK-MB (CK-2) 2.8 (0.5-3.6) ng/ml CK/CKMB % Calc 1.2 (0-3.0) Troponin I 1.120 H* (0-0.045) ng/ml NT-Pro-B Natriuret Pep 42 (0-900) pg/ml Total Protein 7.1 (6.4-8.2) gm/dl Albumin 2.8 L (3.4-5.0) gm/dl Globulin 4.3 H (2.5-4.0) gm/dl Albumin/Globulin Ratio 0.6 L (0.9-2) Lipase 165 (73-393) U/L Specimen Hemolysis 02/10/20 Range/Units 17:12 WBC (4.8-10.8) K/uL RBC (4.2-5.4) M/uL Hgb (12.0-16.0) g/dL POC Hgb 12.9 (12.0-16.0) g/dl Hct (37-47) % POC Hct 38 (37-47) % MCV (80-100) fL MCH (25-34) pg MCHC (32-36) g/dL RDW Std Deviation (36.4-46.3) fL RDW Coeff of Cher (11.5-14.5) % Plt Count (130-400) K/uL MPV (7.4-10.4) fL Immature Gran % (Auto) % Neut % (Auto) % Lymph % (Auto) % Obion % (Auto) % Eos % (Auto) % Baso % (Auto) % Neut # (Auto) (1.4-6.5) K/uL Lymph # (Auto) (1.2-3.4) K/uL Obion # (Auto) (0.11-0.59) K/uL Eos # (Auto) (0-0.5) K/uL Baso # (Auto) (0-0.2) K/uL Immature Gran # (Auto) (0.00-0.02) K/uL PT (9.0-12.0) Seconds INR (0.9-1.1) APTT (21.0-31.0) Seconds PTT Ratio POC Sodium 140 (135-144) mmol/L Sodium (136-145) mmol/L POC Potassium 4.0 (3.3-5.0) mmol/L Potassium (3.5-5.1) mmol/L POC Chloride 107 (101-112) mmol/L Chloride (98-107) mmol/L Carbon Dioxide (21-32) mmol/L POC Total CO2 21 L (24-31) mmol/L Anion Gap (3-11) POC Anion Gap 17.0 (16-25) mmol/L POC BUN 20 H (7-18) mg/dl BUN (7-18) mg/dl Creatinine (0.6-1.2) mg/dl POC Creatinine 0.9 (0.6-1.3) mg/dl Est Cr Clr Drug Dosing ml/min Est GFR ( Amer) Est GFR (Non-Af Amer) BUN/Creatinine Ratio (10-20) Glucose (70-99) mg/dl POC Glucose (other) 145 H (70-99) mg/dl Calcium (8.5-10.1) mg/dl POC Ioniz Calcium Mignon 1.12 (1.12-1.32) mmol/l Total Bilirubin (0.2-1) mg/dl AST (15-37) U/L ALT (12-78) U/L Alkaline Phosphatase (45-117) U/L Total Creatine Kinase (26-192) U/L CK-MB (CK-2) (0.5-3.6) ng/ml CK/CKMB % Calc (0-3.0) Troponin I (0-0.045) ng/ml NT-Pro-B Natriuret Pep (0-900) pg/ml Total Protein (6.4-8.2) gm/dl Albumin (3.4-5.0) gm/dl Globulin (2.5-4.0) gm/dl Albumin/Globulin Ratio (0.9-2) Lipase (73-393) U/L Specimen Hemolysis Imaging [phone] Report Patient: VERO HARRINGTON Admit Date: 02/10/20 MR#: [id number] Address1: [address] Acct ID:[id number] Address2: Date: 1965 [facility] Zip: [place] [id number] Age: 54 Location: ED Sex: F Room/Bed: Att Phy: Diagnosis: SOB Lien Phy: Julita Porter DO Service Date: 02/10/20 Hao Phy: Interpreting Phy: Nicanor Walter Admit Phy: Ordering Phy: Seng Betancourt MD cc: ~ CT angio chest PE protocol CT DOSE: 1085.59 mGy.cm HISTORY: 54 years-old Female with PE. Acute shortness of breath with chest pain TECHNIQUE: Multiple CTA images of the chest were obtained after the intravenous administration of 118 ml Optiray 320. Coronal and sagittal MIPS were obtained from the axial data set and were submitted for review. All measurements were obtained according to NASCET criteria. A dose lowering technique was utilized adhering to the principles of ALARA. COMPARISON: Chest radiograph of same day, CTA chest 06/08/2019 FINDINGS: CTA: Mild multichamber cardiomegaly with prominent epicardial fat pad there is no pericardial effusion. No thoracic aortic aneurysm or dissection. Patency of the imaged great vessels. There is suboptimal opacification of the pulmonary artery secondary to contrast bolus timing. No definite central pulmonary emboli. Segmental and subsegmental bilateral pulmonary emboli are noted with equivocal lobar filling defects. Straightening of the intraventricular septum. CT CHEST: No discrete thyroid nodule or adenopathy. There is no pneumothorax or pleural effusion. No overt pulmonary edema or airspace consolidation typical for pneumonia. Mild bibasilar atelectasis with mosaic attenuation. No pulmonary infarct, suspicious pulmonary nodules or masses. Central airways are patent. Small hiatal hernia. No acute process of the imaged upper abdomen. Limited study secondary to patient body habitus. Streak artifact from right humerus orthopedic hardware. IMPRESSION: 1. Limited exam secondary to contrast bolus timing. 2. Bilateral pulmonary emboli as above with straightening of the intraventricular septum suggestive of associated right heart strain. 3. No pleural effusion or pulmonary infarct. ACT 112: Negative or not required by law. The above report was generated using voice recognition software. It may contain grammatical, syntax or spelling errors. Electronically signed by: Aravind Walter M.D. 02/10/2020 5:57 PM Dictated: 02/10/201752 Transcribed: 02/10/201752 [phone] X[facility] Report Patient: VERO HARRINGTON Admit Date: 02/10/20 MR#: [id number] Address1: [address] [facility] [address] Acct ID:[id number] Address2: Date: 1965 [facility] Zip: [place] [id number] Age: 54 Location: ED Sex: F Room/Bed: Att Phy: Diagnosis: SOB Lien Phy: Julita Porter DO Service Date: 02/10/20 Fam Phy: Interpreting Phy: Nicanor Walter Admit Phy: Ordering Phy: Seng Betancourt MD cc: ~ XR chest 1V portable HISTORY: 54 years-old Female Chest Pain acute atypical chest pain COMPARISON: CTA of the chest 06/08/2019 TECHNIQUE: Portable AP view of the chest FINDINGS: Cardiac silhouette is moderately enlarged, unchanged. There is no pneumothorax, pleural effusion, airspace consolidation or overt pulmonary edema. Bones of the chest appear grossly intact. Partially imaged hardware of the right proximal humerus with adjacent skin morena. IMPRESSION: Cardiomegaly without acute process. ACT 112: Negative or not required by law. The above report was generated using voice recognition software. It may contain grammatical, syntax or spelling errors. Electronically signed by: Aravind Walter M.D. 02/10/2020 5:32 PM Dictated: 02/10/201730 Transcribed: 02/10/201730 ECG Data Attestation: I personally reviewed and interpreted this ECG as follows: Indication: + chest pain Rate (beats per minute): 137 Rhythm: + sinus tachycardia ECG [place]: + Normal ECG ST segments: no ST depression and no ST elevation Comparison ECG Date: from (06/08/2019) Change: no significant change MDM Narrative Patient was seen and evaluated as above in room A2. Review was performed of nursing notes and vital signs. I did review pertinent previous visits and patient history. After obtaining a thorough history and physical examination the above work up was performed. This 54-year-old female who presents emergency department hypoxic as well as tachycardic. Patient was sent for CAT scan of the chest this confirmed bilateral PEs. Patient also has an elevation in her troponins. Due to the recent surgery the patient was started on a heparin drip. I did discuss the case with the hospitalist service who did agree to admit the patient. Patient is in agreement the treatment plan. An order was placed for continuous cardiac monitoring. The monitor shows a rate of 120 with Sinus Tach rhythm. The patient was evaluated during the global COVID-19 pandemic, and that diagnosis was suspected/considered upon their initial presentation. Their evaluation, treatment and testing was consistent with current guidelines for patients who present with complaints or symptoms that may be related to COVID- 19. Impression & Plan Elevated troponin, Bilateral pulmonary embolism, Proximal humerus fracture Discharge Plan Visit Data Chief Complaint: Shortness of Breath/Dyspnea Stated Complaint: SOB ED Provider: Seng Betancourt Discharge Problem: Elevated troponin, Bilateral pulmonary embolism, Proximal humerus fracture Patient Disposition: Admitted As Inpatient Discharge Instructions Interventions: ED Discharge Assessment Last Done: 02/11/20 00:00
--- NOTE | 2020-02-10 18:34 | CT Scan Report ---
CT angio chest PE protocol CT DOSE: 1085.59 mGy.cm HISTORY: 54 years-old Female with PE. Acute shortness of breath with chest pain TECHNIQUE: Multiple CTA images of the chest were obtained after the intravenous administration of 118 ml Optiray 320. Coronal and sagittal MIPS were obtained from the axial data set and were submitted for review. All measurements were obtained according to NASCET criteria. A dose lowering technique w as utilized adhering to the principles of ALARA. COMPARISON: Chest radiograph of same day, CTA chest 06/08/2019 FINDINGS: CTA: Mild multichamber cardiomegaly with prominent epicardial fat pad there is no pericardial effusion. No thoracic aortic aneurysm or dissection. Patency of the imaged great vessels. There is suboptimal opa cification of the pulmonary artery secondary to contrast bolus timing. No definite central pulmonary emboli. Segmental and subsegmental bilateral pulmonary emboli are noted with equivocal lobar filling defects. Straightening of the intraventricular septum. CT CHEST: No discrete thyroid nodule or adenopathy. There is no pneumothorax or pleural effusion. No overt pulm onary edema or airspace consolidation typical for pneumonia. Mild bibasilar atelectasis with mosaic a ttenuation. No pulmonary infarct, suspicious pulmonary nodules or masses. Central airways are patent. Small hiatal hernia. No acute process of the imaged upper abdomen. Limited study secondary to patient body habitus. Streak artifact from right humerus orthopedic hardware. IMPRESSION: 1. Limited exam secondary to contrast bolus timing. 2. Bilateral pulmonary emboli as above with straightening of the intraventricular septum suggestive o f associated right heart strain. 3. No pleural effusion or pulmonary infarct. ACT 112: Negative or not required by law. The above report was generated using voice recognition software. It may contain grammatical, syntax o r spelling errors. Electronically signed by: Aravind Walter M.D. 02/10/2020 5:57 PM
[2020-02-10] MEDS ORDERED: Heparin IV Standard *NO* Bolus ONE (18:40)
[2020-02-10] MEDS: HEPARIN SODIUM/DEXTROSE 25,000 UNITS/500 ML BAG IV SCH (18:56)
[2020-02-10] MEDS ORDERED: NORMOSOL-R 250 ML IV ONE (19:29)
[2020-02-10] MEDS ORDERED: NORMOSOL-R 1,000 ML IV STA (20:06)
--- NOTE | 2020-02-10 20:13 | History & Physical Report ---
Date of Service February 10, 2020 Assessment & Plan (1) Acute hypoxemic respiratory failure: Secondary to recurrent pulmonary embolism Recent right shoulder surgery Rule out LE venous clot as source hypertension, stable Hyperglycemia rule out DM chronic anemia, hemoglobin at baseline Medical telemetry Supplemental O2 Baseline ABG IV heparin Patient comfortable with transition to Coumadin if okay with [facility] orthopedic surgeon (Dr. Alvarez.) Patient likely to require lifelong anticoagulation following recurrent event with significant clot burden. LE venous Dopplers rule out DVT Check hemoglobin A1c DVT prophylaxis. IV heparin Full code Text document was generated using [employer] voice recognition software. It may contain grammatical or spelling errors. Kindly contact undersigned for clarification of any documentation item in question. History of Present Illness Chief Complaint: Right-sided chest pain, S OB Primary Care Provider: Julita Porter DO History obtained from patient and records. Medical history significant for PE status post Coumadin, hypertension, hyperlipidemia, anxiety disorder, chronic anemia (baseline hemoglobin 11), right humerus fracture status post recent surgery. Last confinement May 2019 for bilateral PE with RV strain attributed to immobility from right humeral fracture secondary to fall. LE venous Dopplers negative for DVT. Patient completed 6 months of Coumadin anticoagulation. Patient underwent elective surgery for right humeral fracture nonunion at [facility] 2 days ago. No recollection of SCD or parenteral anticoagulation administration during overnight stay. Patient discharged home yesterday. Prescribed aspirin for blood clot prophylaxis. This afternoon patient noted sudden onset pleuritic right sided chest pain with shortness of breath somewhat radiating to the right shoulder. No unusual cough symptoms. Patient noted to be hypoxemic and tachycardic upon arrival of EMS. IV heparin started at the ER for pulmonary embolism on CAT scan. Medical History as above 2017 no malignancy on mammogram No prior colonoscopies. 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 Allergies Allergy/AdvReac Type Severity Reaction Status Date / Time No Known Allergies Allergy Verified 02/10/20 17:49 Home Medications Home Medications Medication Instructions Recorded Confirmed Type lisinopril 20 mg tablet 20 mg PO QAM 04/20/19 02/10/20 History omeprazole 40 mg PO DAILY 06/08/19 02/10/20 History acetaminophen [Tylenol Extra 1,000 mg PO TID PRN #0 tab 06/14/19 02/10/20 Rx Strength] methocarbamol 750 mg tablet 750 mg PO Q8H #90 tab 08/22/19 02/10/20 Rx aspirin [Aspir-81] 81 mg PO BID 02/10/20 02/10/20 History oxycodone 5 mg PO Q4H PRN 02/10/20 02/10/20 History Past Med/Surg History Medical History Anxiety no meds Diarrhea Dry eyes Dysphagia GERD (gastroesophageal reflux disease) Hyperlipidemia Hypertension Kidney stones Knee pain Morbid obesity Osteoarthritis Proximal humerus fracture Snoring Sprain of medial collateral ligament of knee Surgical History History of arthroscopy of left knee History of cholecystectomy History of ERCP History of esophagogastroduodenoscopy (EGD) History of lithotripsy History of repair of left rotator cuff History of tooth extraction History of umbilical hernia repair Status post wrist surgery right Family History Mother Family history of reaction to anesthesia nausea/vomiting, "difficulty waking up" Hypertension Denies family history of Clotting disorder Social History Smoking Status: Never smoker Second Hand Exposure: No; Do You Dip or Chew Tobacco: No; Tobacco Cessation Education Requested by Patient: No Hx Alcohol Use: No Hx Substance Use: No Preferred Language: [place] Communication Ability: Effective Erp Analyst Required: No Beliefs That Will Affect Care: None marital status: Single Current Living Situation: Family Current Living Situation Comment: Pt has her own place, but stays with her mother often current occupational status: employed 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 Other Information That Helps Us Care for You: No Feels Safe at Home: Yes Safety Concerns: Feels Safe At This Time during the past year weight has: remained stable Review of Systems Review of Systems: As per HPI, all 10 systems reviewed, all other ROS negative Physical Exam Physical Exam: GENERAL: Slightly uncomfortable, morbidly obese, slightly anxious, minimal respiratory distress SKIN: Normal color, warm HEENT: [place] palpebral conjunctivae, no ptosis, dry buccal mucosa, nasal cannula in place NECK : Supple, short neck, no tenderness CHEST : Dried povidone iodine on right chest wall, CTA, no tenderness HEART : Tachycardic , no obvious murmurs ABDOMEN: Some distention, nontender EXTREMITIES : RUE sling, minimal LE swelling, no LE tenderness NEUROLOGIC : Coherent, no facial asymmetry, no other gross focality Results & Data Results & Data ([facility]) Vital Signs (Past 12 Hours) Vital Signs Temp Pulse Resp BP Pulse Ox 02/10/20 18:30 128 H 17 95 02/10/20 18:00 131 H 25 H 112/77 95 02/10/20 17:30 134 H 27 H 93 02/10/20 17:00 131 H 22 91 02/10/20 16:30 133 H 24 92 02/10/20 16:11 36.8 C 138 H 28 H 131/83 95 02/10/20 16:02 137 H 33 H 131/83 95 Laboratory Results Laboratory Results WBC 10.97 K/uL (4.8-10.8) H 02/10/20 16:54 RBC 4.32 M/uL (4.2-5.4) 02/10/20 16:54 Hgb 11.5 g/dL (12.0-16.0) L 02/10/20 16:54 POC Hgb 12.9 g/dl (12.0-16.0) 02/10/20 17:12 Hct 36.7 % (37-47) L 02/10/20 16:54 POC Hct 38 % (37-47) 02/10/20 17:12 MCV 85.0 fL (80-100) 02/10/20 16:54 MCH 26.6 pg (25-34) 02/10/20 16:54 MCHC 31.3 g/dL (32-36) L 02/10/20 16:54 RDW Std Deviation 51.8 fL (36.4-46.3) H 02/10/20 16:54 RDW Coeff of Cher 16.6 % (11.5-14.5) H 02/10/20 16:54 Plt Count 185 K/uL (130-400) 02/10/20 16:54 MPV 10.3 fL (7.4-10.4) 02/10/20 16:54 Immature Gran % (Auto) 0.4 % 02/10/20 16:54 Neut % (Auto) 81.9 % 02/10/20 16:54 Lymph % (Auto) 7.4 % 02/10/20 16:54 Cobb % (Auto) 9.3 % 02/10/20 16:54 Eos % (Auto) 0.8 % 02/10/20 16:54 Baso % (Auto) 0.2 % 02/10/20 16:54 Neut # (Auto) 8.99 K/uL (1.4-6.5) H 02/10/20 16:54 Lymph # (Auto) 0.81 K/uL (1.2-3.4) L 02/10/20 16:54 Cobb # (Auto) 1.02 K/uL (0.11-0.59) H 02/10/20 16:54 Eos # (Auto) 0.09 K/uL (0-0.5) 02/10/20 16:54 Baso # (Auto) 0.02 K/uL (0-0.2) 02/10/20 16:54 Immature Gran # (Auto) 0.04 K/uL (0.00-0.02) H 02/10/20 16:54 PT 10.3 Seconds (9.0-12.0) 02/10/20 16:40 INR 1.0 (0.9-1.1) 02/10/20 16:40 APTT 23.5 Seconds (21.0-31.0) 02/10/20 16:40 PTT Ratio 0.8 02/10/20 16:40 POC Sodium 140 mmol/L (135-144) 02/10/20 17:12 Sodium 138 mmol/L (136-145) 02/10/20 16:54 POC Potassium 4.0 mmol/L (3.3-5.0) 02/10/20 17:12 Potassium 4.0 mmol/L (3.5-5.1) 02/10/20 16:54 POC Chloride 107 mmol/L (101-112) 02/10/20 17:12 Chloride 110 mmol/L (98-107) H 02/10/20 16:54 Carbon Dioxide 20 mmol/L (21-32) L 02/10/20 16:54 POC Total CO2 21 mmol/L (24-31) L 02/10/20 17:12 Anion Gap 8.0 (3-11) 02/10/20 16:54 POC Anion Gap 17.0 mmol/L (16-25) 02/10/20 17:12 POC BUN 20 mg/dl (7-18) H 02/10/20 17:12 BUN 18 mg/dl (7-18) 02/10/20 16:54 Creatinine 1.16 mg/dl (0.6-1.2) 02/10/20 16:54 POC Creatinine 0.9 mg/dl (0.6-1.3) 02/10/20 17:12 Est Cr Clr Drug Dosing 79.9 ml/min 02/10/20 16:54 Est GFR ( Amer) 61.4 02/10/20 16:54 Est GFR (Non-Af Amer) 53.0 02/10/20 16:54 BUN/Creatinine Ratio 15.5 (10-20) 02/10/20 16:54 Glucose 138 mg/dl (70-99) H 02/10/20 16:54 POC Glucose (other) 145 mg/dl (70-99) H 02/10/20 17:12 Calcium 8.4 mg/dl (8.5-10.1) L 02/10/20 16:54 POC Ioniz Calcium Mignon 1.12 mmol/l (1.12-1.32) 02/10/20 17:12 Total Bilirubin 0.3 mg/dl (0.2-1) 02/10/20 16:54 AST 43 U/L (15-37) H 02/10/20 16:54 ALT 66 U/L (12-78) 02/10/20 16:54 Alkaline Phosphatase 92 U/L (45-117) 02/10/20 16:54 Total Creatine Kinase 231 U/L (26-192) H 02/10/20 16:54 CK-MB (CK-2) 2.8 ng/ml (0.5-3.6) 02/10/20 16:54 CK/CKMB % Calc 1.2 (0-3.0) 02/10/20 16:54 Troponin I 1.120 ng/ml (0-0.045) H* 02/10/20 16:54 NT-Pro-B Natriuret Pep 42 pg/ml (0-900) 02/10/20 16:54 Total Protein 7.1 gm/dl (6.4-8.2) 02/10/20 16:54 Albumin 2.8 gm/dl (3.4-5.0) L 02/10/20 16:54 Globulin 4.3 gm/dl (2.5-4.0) H 02/10/20 16:54 Albumin/Globulin Ratio 0.6 (0.9-2) L 02/10/20 16:54 Lipase 165 U/L (73-393) 02/10/20 16:54 Specimen Hemolysis 02/10/20 16:[address] chest: 1. Limited exam secondary to contrast bolus timing. 2. Bilateral pulmonary emboli as above with straightening of the intraventricular septum suggestive of associated right heart strain. 3. No pleural effusion or pulmonary infarct. EKG as per my interpretation : Rate 140, sinus tachycardia, normal axis, incomplete RBBB, T wave abnormalities inferior leads, ST depression anterolateral leads
[2020-02-11] MEDS ORDERED: ACETAMINOPHEN 325 MG TAB PO PRN (00:05)
[2020-02-11] MEDS ORDERED: PROMETHAZINE HCL 12.5 MG in SODIUM CHLORIDE 0.9% 50 ML IV PRN (00:05)
[2020-02-11] MEDS ORDERED: MAGNESIUM SULFATE / D5W 1 GM/100 ML BAG IV ONE (00:05)
[2020-02-11] MEDS ORDERED: LORazepam 0.25 MG/0.5 ML VIAL IV PRN (00:05)
[2020-02-11] MEDS ORDERED: MoRPHine SULFATE 4 MG/ML 1 ML CARP\\VIAL IV PRN (00:05)
[2020-02-11] MEDS: OXYCODONE HCL IR 5 MG TAB (IMMEDIATE RELEASE) PO PRN ×3 (01:16→16:50)
[2020-02-11 02:52] LABS: Partial Thromboplastin Ratio 1.3; Partial Thromboplastin Time 36.3 Seconds (21.0-31.0)
[2020-02-11] MEDS ORDERED: HEPARIN IV BOLUS 7,000 UNITS in SYRINGE 0 ML IV ONE (03:20)
[2020-02-11 06:42] LABS: Basophils # (auto) 0.01 K/uL (0-0.2); Basophils % (auto) 0.1 %; Eosinophils # (auto) 0.06 K/uL (0-0.5); Eosinophils % (auto) 0.7 %; Hematocrit (blood only) 34.4 % (37-47); Hemoglobin 10.8 g/dL (12.0-16.0); Immature Granulocytes # (auto) 0.01 K/uL (0.00-0.02); Immature Granulocytes % (auto) 0.1 %; Lymphocytes # (auto) 1.55 K/uL (1.2-3.4); Lymphocytes % (auto) 18.9 %; Mean Corpuscular Hemoglobin 26.7 pg (25-34); Mean Corpuscular Hgb Conc 31.4 g/dL (32-36); Mean Corpuscular Volume 85.1 fL (80-100); Mean Platelet Volume 10.1 fL (7.4-10.4); Monocytes # (auto) 0.72 K/uL (0.11-0.59); Monocytes % (auto) 8.8 %; Neutrophils # (auto) 5.85 K/uL (1.4-6.5); Neutrophils % (auto) 71.4 %; Platelet Count 200 K/uL (130-400); RDW Coefficient of Variation 16.5 % (11.5-14.5); RDW Standard Deviation 50.9 fL (36.4-46.3); Red Blood Count 4.04 M/uL (4.2-5.4)
[2020-02-11 06:56] LABS: Prothrombin Time 10.9 Seconds (9.0-12.0)
[2020-02-11 07:08] LABS: Estimated Average Glucose 128 mg/dl; Hemoglobin A1C 6.1 % (4.5-5.6)
[2020-02-11 07:13] LABS: BUN Creatinine Ratio 16.5 (10-20); Calcium 8.7 mg/dl (8.5-10.1); Creatinine Clr Calc Pharmacy 98.9 ml/min; Est GFR (African American) 79.2; Est GFR (Non-African American) 68.3; Magnesium 2.4 mg/dl (1.8-2.4); Potassium 3.8 mmol/L (3.5-5.1)
--- NOTE | 2020-02-11 08:08 | Communication Note ---
Date of Service: February 11, 2020 Case discussed with Maritza Feng PA-C for [facility] Orthopedics. IV heparin okay. Okay to discharge patient on anticoagulant of choice as per discussion with patient surgeon.
[2020-02-11] MEDS: HEPARIN SODIUM/DEXTROSE 25,000 UNITS/500 ML BAG IV SCH (08:17)
[2020-02-11] MEDS: PANTOprazole 40 MG TAB PO SCH (08:18)
[2020-02-11] MEDS ORDERED: lisinopriL 20 MG TAB PO SCH (09:00)
[2020-02-11 10:38] LABS: Partial Thromboplastin Ratio 3.8
[2020-02-11 11:26] LABS: Partial Thromboplastin Time 106.5 Seconds (21.0-31.0)
--- NOTE | 2020-02-11 12:01 | Ultrasound Report ---
US venous doppler LE BI CLINICAL HISTORY: Pulmonary embolism COMPARISON STUDY: 06/08/2019 FINDINGS: Real-time and color flow Doppler imaging were performed. Flow was seen within the femoral, popliteal and calf veins with no intraluminal thrombus demonstrated. The saphenous vein is patent. The examination was slightly limited from a technical standpoint due to the patient's body habitus. IMPRESSION: No evidence of lower extremity DVT. ACT 112: Negative or not required by law. Electronically signed by: Colin Catherine M.D. 02/11/2020 12:00 PM
--- NOTE | 2020-02-11 13:40 | Hospitalist Progress Note ---
Date of Service February 11, 2020 Assessment & Plan (1) Acute hypoxemic respiratory failure: Secondary to recurrent pulmonary embolism In the setting of status post right shoulder surgery Patient also developed acute PE after initial right shoulder surgery in May 2019, for which she completed a 6-month course of Coumadin CT angiogram: Positive bilateral acute PEs, with possible right heart strain Lower extremity Doppler ultrasound: No DVTs Echocardiogram ordered Continue Coumadin with heparin bridge Wean off oxygen Pulmonary service consulted Monitor closely Will need at least 3 months of anticoagulation Pulmonary embolism appears to be provoked, but this is her second episode since May after surgery May need hematology referral Recent right shoulder surgery Postop day #3 Okay to proceed with anticoagulation per [facility] Ortho service Ice pack on the right upper arm every shift hypertension, stable Prediabetes A1c 6.1 Outpatient follow-up chronic anemia, hemoglobin at baseline DVT prophylaxis. IV heparin Full code Disposition Dissipate discharge home medically stable, will need 2 step exercise test prior to discharge Admission and Anticipated Discharge Date Admission Date: February 10, 2020 Subjective Follow-up for acute bilateral pulmonary embolism Seen sitting up in bedside chair, in good spirits, no distress, awake and alert oriented x3 No dyspnea at rest but does report dyspnea with exertion No chest pain, no dizziness no palpitations no nausea vomiting reports minimal discomfort in the right upper arm surgical area No bleeding No other symptoms Review of Systems Review of Systems: All systems reviewed & are unremarkable except as noted in HPI & below Physical Exam Physical Exam: General- oriented x 3, not in distress, speaks in sentences with no effort or accessory muscle use Head- atraumatic Eyes- PERRL, EOMI, anicteric ENT- oropharynx clear Neck- supple, no JVD, no adenopathy, no thyromegaly; carotids +2/2, no bruits appreciated Lungs- clear to auscultation bilaterally, no rales/wheezes Heart- normal rate, regular rhythm; no murmur, no gallop, no rub appreciated Abdomen- normal bowel sounds, nondistended, soft, nontender, no masses or hepatosplenomegaly Extremities- no pretibial edema, no calf tenderness; peripheral pulses intact Right upper extremity-surgical dressing in place, no hematoma or bleeding or discharge noted Moderate edema noted, but no hematoma/erythema/warmth/tenderness Neuro- alert, oriented x 3; CN 2-12 grossly intact; motor 5/5 bilaterally;sensation 100% on all extremities; no other gross focal neurologic deficits Skin- warm & dry Results & Data Results & Data ([facility]) Vital Signs (Past 12 Hours) Vital Signs Temp Pulse Pulse Resp BP Pulse Ox 02/11/20 11:23 36.3 C L 127 H 20 97/72 L 91 02/11/20 07:14 36.6 C 87 18 105/76 94 02/11/20 07:00 95 H 02/11/20 04:00 36.5 C 96 H 18 123/84 98 02/11/20 02:29 36.8 C 111 H 103 H 18 120/70 95
--- NOTE | 2020-02-11 15:30 | Pulmonary Consultation ---
Date of Consultation February 11, 2020 Assessment & Plan (1) Bilateral pulmonary embolism: --Bilateral PE This is her second episode Initial PE was when she had humeral fracture back in May 2019 and she was on warfarin for 6 months This time 3 days ago she had finally surgery for her humeral fracture of the right hand Patient states that she was walking even after the surgery. Given that this is a second episode. I would recommend patient to be on lifelong anticoagulation. Hypercoagulable work-up to be done as an outpatient Right heart strain appreciated on the CTA chest is similar to the one appreciated back in May 2019. 2D echo done in May 2019 showed RVSP of 53 mmHg. Echo 02/11/2020 shows RVSP 30-40 with borderline right ventricular enlargement. Right ventricular pressures are better than in May 2019. Patient is hemodynamically stable and saturating 97% on room air. There is no indication for TPA. --Probable EARL/OHS Needs sleep study as an outpatient --Morbid obesity Advised to lose weight with diet and exercise Plan: No indication for TPA Recommend lifelong anticoagulation given this is her second episode of PE. DOACs could be used in the patient but her BMI greater than 40 might be an issue. Factor Xa might need to be checked to make sure patient is adequately anticoagulated. I would recommend hematology consult to get an opinion regarding use of DOACs versus warfarin for the patient All questions inquiries of the patient were answered in depth. Please note the above document was generated using voice recognition software. It may contain grammatical, syntax or spelling errors. (2) Morbid obesity: (3) GERD (gastroesophageal reflux disease): (4) Proximal humerus fracture: History of Present Illness Attending Physician: Amilcar Sands MD History of Present Illness 54-year-old female with past medical history of morbid obesity, histor y of DVT back in May 2019 was on warfarin for 6 months discontinued in November, hypertension, anxiety disorder, dyslipidemia, history of humeral fracture status post surgery 3 days ago was admitted to hospital with complaints of shortness of breath, right-sided pleuritic chest pain and shortness of breath. No cough. Patient denied any dizziness. No nausea or vomiting. No diaphoresis. Patient felt similar to what she felt when she had PE in May 2019 Patient denies any family history of blood clots. Social history: Non-smoker, no alcohol use, no illicit drug use. Allergies Allergy/AdvReac Type Severity Reaction Status Date / Time No Known Allergies Allergy Verified 02/10/20 17:49 Home Medications Home Medications Medication Instructions Recorded Confirmed Type lisinopril 20 mg tablet 20 mg PO QAM 04/20/19 02/10/20 History omeprazole 40 mg PO DAILY 06/08/19 02/10/20 History acetaminophen [Tylenol Extra 1,000 mg PO TID PRN #0 tab 06/14/19 02/10/20 Rx Strength] methocarbamol 750 mg tablet 750 mg PO Q8H #90 tab 08/22/19 02/10/20 Rx aspirin [Aspir-81] 81 mg PO BID 02/10/20 02/10/20 History oxycodone 5 mg PO Q4H PRN 02/10/20 02/10/20 History Patient History Medical History Anxiety no meds Diarrhea Dry eyes Dysphagia GERD (gastroesophageal reflux disease) Hyperlipidemia Hypertension Kidney stones Knee pain Morbid obesity Osteoarthritis Proximal humerus fracture Snoring Sprain of medial collateral ligament of knee Surgical History History of arthroscopy of left knee History of cholecystectomy History of ERCP History of esophagogastroduodenoscopy (EGD) History of lithotripsy History of repair of left rotator cuff History of tooth extraction History of umbilical hernia repair Status post wrist surgery right Family History Mother Family history of reaction to anesthesia nausea/vomiting, "difficulty waking up" Hypertension Denies family history of Clotting disorder Social History Smoking Status: Never smoker Second Hand Exposure: No; Do You Dip or Chew Tobacco: No; Tobacco Cessation Education Requested by Patient: No Hx Alcohol Use: No Hx Substance Use: No Preferred Language: [place]ian Communication Ability: Effective Breast Surgeon Required: No Beliefs That Will Affect Care: None marital status: Single Current Living Situation: Family Current Living Situation Comment: Pt has her own place, but stays with her mother often current occupational status: employed 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 Other Information That Helps Us Care for You: No Feels Safe at Home: Yes Safety Concerns: Feels Safe At This Time during the past year weight has: remained stable Review of Systems Review of Systems: All systems reviewed & are unremarkable except as noted in HPI & below Physical Exam Physical Exam: Constitutional: No acute distress, talking in full sentences HEENT: EOMI, PERRLA, thick neck Mallampati 3 Respiratory system: Good air entry bilaterally, no wheeze, no rhonchi, no crackles CVS: S1-S2 positive, no murmurs or gallops, tachycardia Abdomen: Soft, nontender, nondistended, positive bowel sounds x4 Extremities: +2 pulses bilaterally radialis/ dorsalis pedis, no cyanosis, +1 p itting edema bilateral lower extremity, right arm in sling Neuro: Awake alert oriented x3 Psych: Normal mood and affect G/U: No Stephen Patient was saturating 97% on room air at the time of examination. Skin: no rashes, warm and dry Lymphatic: no cervical or axillary lymphadenopathy Results & Data Results & Data ([facility]) Vital Signs (Past 12 Hours) Vital Signs Temp Pulse Pulse Resp BP Pulse Ox 02/11/20 14:59 36.8 C 97 H 18 131/72 97 02/11/20 11:23 36.3 C L 127 H 20 97/72 L 91 02/11/20 07:14 36.6 C 87 18 105/76 94 02/11/20 07:00 95 H 02/11/20 04:00 36.5 C 96 H 18 123/84 98 02/11/20 06:26 02/11/20 06:26 PG Care Time/CCT Total # of Minutes Spent Total Time Spent with Patient: Total time spent is greater than 50% in coordination of care (as documented) at patient's floor/unit and/or counseling patient: Coding Level of Care Code 04669 Initial Inpt Care Lvl 3 Diagnoses Bilateral pulmonary embolism I26.99 Morbid obesity E66.01 GERD (gastroesophageal reflux disease) K21.9 Proximal humerus fracture S42.209A
[2020-02-11] MEDS: WARFARIN SOD 7.5 MG TAB PO SCH (16:49)
[2020-02-11] MEDS ORDERED: MAGNESIUM HYDROXIDE SUSP 30 ML UDC PO PRN (17:27)
[2020-02-11] MEDS: DOCUSATE SODIUM/SENNA 50/8.6MG TAB PO SCH (18:30)
[2020-02-11 18:41] LABS: Partial Thromboplastin Ratio 1.7
[2020-02-11 18:43] LABS: Partial Thromboplastin Time 47.8 Seconds (21.0-31.0)
[2020-02-12] MEDS: HEPARIN SODIUM/DEXTROSE 25,000 UNITS/500 ML BAG IV SCH ×2 (01:48→16:03)
[2020-02-12] MEDS: OXYCODONE HCL IR 5 MG TAB (IMMEDIATE RELEASE) PO PRN ×4 (01:48→20:05)
[2020-02-12 06:37] LABS: Basophils # (auto) 0.01 K/uL (0-0.2); Basophils % (auto) 0.1 %; Eosinophils # (auto) 0.27 K/uL (0-0.5); Hematocrit (blood only) 32.4 % (37-47); Hemoglobin 10.2 g/dL (12.0-16.0); Immature Granulocytes # (auto) 0.02 K/uL (0.00-0.02); Immature Granulocytes % (auto) 0.3 %; Lymphocytes # (auto) 1.81 K/uL (1.2-3.4); Lymphocytes % (auto) 26.7 %; Mean Corpuscular Hemoglobin 26.8 pg (25-34); Mean Corpuscular Hgb Conc 31.5 g/dL (32-36); Mean Platelet Volume 10.2 fL (7.4-10.4); Monocytes # (auto) 0.58 K/uL (0.11-0.59); Monocytes % (auto) 8.6 %; Neutrophils # (auto) 4.09 K/uL (1.4-6.5); Neutrophils % (auto) 60.3 %; Platelet Count 193 K/uL (130-400); RDW Coefficient of Variation 16.5 % (11.5-14.5); RDW Standard Deviation 51.1 fL (36.4-46.3); Red Blood Count 3.81 M/uL (4.2-5.4); White Blood Count 6.78 K/uL (4.8-10.8)
[2020-02-12] MEDS: PANTOprazole 40 MG TAB PO SCH (06:47)
[2020-02-12] MEDS: DOCUSATE SODIUM/SENNA 50/8.6MG TAB PO SCH (06:59)
[2020-02-12 07:01] LABS: Partial Thromboplastin Time 55.2 Seconds (21.0-31.0)
[2020-02-12] MEDS ORDERED: lisinopriL 10 MG TAB PO SCH (09:00)
[2020-02-12] MEDS ORDERED: SODIUM CHLORIDE 0.9% 500 ML IV SCH (11:15)
--- NOTE | 2020-02-12 11:16 | Pulmonology Progress Note ---
Date of Service February 12, 2020 Assessment & Plan (1) Bilateral pulmonary embolism: --Bilateral PE This is her second episode Initial PE was when she had humeral fracture back in May 2019 and she was on warfarin for 6 months Prior to this admission, 3 days ago she had finally surgery for her humeral fracture of the right hand Patient states that she was walking even after the surgery. Given that this is a second episode. I would recommend patient to be on lifelong anticoagulation. Hypercoagulable work-up to be done as an outpatient Right heart strain appreciated on the CTA chest is similar to the one appreciated back in May 2019. 2D echo done in May 2019 showed RVSP of 53 mmHg. Echo 02/11/2020 shows RVSP 30-40 with borderline right ventricular enlargement. Right ventricular pressures are better than in May 2019. Patient is hemodynamically stable and saturating 99% on room air. There is no indication for TPA. --Probable EARL/OHS Needs sleep study as an outpatient --Morbid obesity Advised to lose weight with diet and exercise Plan: Recommend lifelong anticoagulation given this is her second episode of PE. DOACs could be used in the patient but her BMI greater than 40 might be an issue. Factor Xa might need to be checked to make sure patient is adequately anticoagulated. Hematology consult to get an opinion regarding use of DOACs versus warfarin for the patient Case was discussed with Dr Sands Please note the above document was generated using voice recognition software. It may contain grammatical, syntax or spelling errors. (2) Morbid obesity: (3) GERD (gastroesophageal reflux disease): (4) Proximal humerus fracture: Admission and Anticipated Discharge Date Admission Date: February 10, 2020 Subjective Patient seen and examined at bedside. No acute distress, no adverse events overnight. Patient moving and going to the bathroom without any significant shortness of breath. Denies any chest pain, no palpitations. Positive bowel movement. Good appetite. No hematuria, no hematochezia. Patient was saturating 99% on room air at the time of examination with heart rate of 92 at rest. Review of Systems Review of Systems: All systems reviewed & are unremarkable except as noted in Subjective Physical Exam Physical Exam: Constitutional: No acute distress, talking in full sentences HEENT: EOMI, PERRLA, thick neck Mallampati 3 Respiratory system: Good air entry bilaterally, no wheeze, no rhonchi, no crackles CVS: S1-S2 positive, no murmurs or gallops, tachycardia Abdomen: Soft, nontender, nondistended, positive bowel sounds x4 Extremities: +2 pulses bilaterally radialis/ dorsalis pedis, no cyanosis, +1 pitting edema bilateral lower extremity, right arm in sling Neuro: Awake alert oriented x3 Psych: Normal mood and affect G/U: No Stephen Skin: no rashes, warm and dry Lymphatic: no cervical or axillary lymphadenopathy Results & Data Results & Data ([facility]) Vital Signs (Past 12 Hours) Vital Signs Temp Pulse Pulse Resp BP Pulse Ox 02/12/20 07:56 82 02/12/20 07:14 37.1 C 84 18 96/67 L 97 02/12/20 03:22 36.8 C 83 20 119/78 98 02/12/20 06:04 02/11/20 06:26 PG Care Time/CCT Total # of Minutes Spent Total Time Spent with Patient: Total time spent is greater than 50% in coordination of care (as documented) at patient's floor/unit and/or counseling patient: Coding Level of Care Code 47376 Subseq Hosp Care Lvl 3 Diagnoses Bilateral pulmonary embolism I26.99 Morbid obesity E66.01 GERD (gastroesophageal reflux disease) K21.9 Proximal humerus fracture S42.209A
[2020-02-12] MEDS: SODIUM CHLORIDE 0.9% 1,000 ML IV SCH ×2 (12:35→20:14)
[2020-02-12] MEDS: WARFARIN SOD 7.5 MG TAB PO SCH (16:02)
--- NOTE | 2020-02-12 16:17 | Electrocardiogram Report ---
Test Reason : Blood Pressure : / mmHG Vent. Rate : 137 BPM Atrial Rate : 137 BPM P-R Int : 132 ms QRS Dur : 082 ms QT Int : 286 ms P-R-T Axes : 055 071 -29 degrees QTc Int : 431 ms Sinus tachycardia Cannot rule out Inferior infarct (cited on or before 10-FEB-2020) Nonspecific ST abnormality Abnormal ECG When compared with ECG of 08-JUN-2019 13:17, T wave inversion less evident in Anterolateral leads Confirmed by Carl Dey ([id number]) on 02/12/2020 4:16:50 PM Referred By: Rich Aaron Confirmed By:Carl Dey
--- NOTE | 2020-02-12 19:12 | Hospitalist Progress Note ---
Date of Service February 12, 2020 Assessment & Plan (1) Acute hypoxemic respiratory failure: (1) Acute hypoxemic respiratory failure: Secondary to recurrent pulmonary embolism In the setting of status post right shoulder surgery Patient also developed acute PE after initial right shoulder surgery in May 2019, for which she completed a 6-month course of Coumadin CT angiogram: Positive bilateral acute PEs, with possible right heart strain Lower extremity Doppler ultrasound: No DVTs Echocardiogram noted, RV improving compared to May 2019 Discussed with clinical services specialist Dr. Eddie Moreno continue Coumadin with heparin bridge, possible Lovenox upon discharge Question of possible transitioning to novel oral anticoagulants as outpatient Wean off oxygen Pulmonary service consulted appreciate recommendations Recommend lifelong anticoagulation Will need two-step exercise test upon discharge Recent right shoulder surgery Postop day #4 Okay to proceed with anticoagulation per [facility] Ortho service Ice pack on the right upper arm every shift Hypertension Blood pressure on the low side Start IV fluids, hold lisinopril Prediabetes A1c 6.1 Outpatient follow-up Chronic anemia, hemoglobin at baseline DVT prophylaxis. IV heparin plus Coumadin Full code Disposition Anticipate discharge home medically stable, on Coumadin plus Lovenox, will need 2 step exercise test prior to discharge Admission and Anticipated Discharge Date Admission Date: February 10, 2020 Subjective Follow-up for acute pulmonary embolism Seen sitting up in bedside chair, comfortable States she became dyspneic when she rushed to the bathroom and back with her chair No dyspnea at rest Has sharp chest pain in the left side, no cough, sputum reduction, fevers or chills Feels mild to moderate discomfort on the right upper arm, surgical site, but improving Denies bleeding Denies headache, dizziness No other symptoms Review of Systems Review of Systems: All systems reviewed & are unremarkable except as noted in HPI & below Physical Exam Physical Exam: General- oriented x 3, not in distress, speaks in sentences with no effort or accessory muscle use Eyes- anicteric Neck- no JVD Lungs- clear breath sounds bilaterally, no wheezing, no crackles Heart- normal rate, regular rhythm; no murmurs Abdomen- normal bowel sounds, nondistended, soft, nontender Extremities- no pretibial edema, no calf tenderness Right upper extremity-sling in place, dressing in place, no active bleeding or discharge No surrounding hematoma erythema or warmth/tenderness Neuro- alert, oriented x 3; no gross focal neurologic deficits Skin- warm & dry Results & Data Results & Data ([facility]) Vital Signs (Past 12 Hours) Vital Signs Temp Pulse Pulse Resp BP Pulse Ox 02/12/20 17:01 84 02/12/20 16:22 37.0 C 85 18 134/81 99 02/12/20 11:16 36.7 C 85 18 96/60 L 98 02/12/20 07:56 82 02/12/20 07:14 37.1 C 84 18 96/67 L 97 Laboratory Results Laboratory Results - last 24 hr 02/12/20 02/12/20 06:04 06:04 WBC 6.78 RBC 3.81 L Hgb 10.2 L Hct 32.4 L MCV 85.0 MCH 26.8 MCHC 31.5 L RDW Std Deviation 51.1 H RDW Coeff of Cher 16.5 H Plt Count 193 MPV 10.2 Immature Gran % (Auto) 0.3 Neut % (Auto) 60.3 Lymph % (Auto) 26.7 [place] % (Auto) 8.6 Eos % (Auto) 4.0 Baso % (Auto) 0.1 Neut # (Auto) 4.09 Lymph # (Auto) 1.81 [place] # (Auto) 0.58 Eos # (Auto) 0.27 Baso # (Auto) 0.01 Immature Gran # (Auto) 0.02 PT 11.0 INR 1.0 APTT 55.2 H* PTT Ratio 2.0
[2020-02-13] MEDS: SODIUM CHLORIDE 0.9% 1,000 ML IV SCH (04:18)
[2020-02-13] MEDS: OXYCODONE HCL IR 5 MG TAB (IMMEDIATE RELEASE) PO PRN ×4 (04:18→20:58)
[2020-02-13] MEDS: HEPARIN SODIUM/DEXTROSE 25,000 UNITS/500 ML BAG IV SCH (05:43)
[2020-02-13 08:06] LABS: INR 1.3 (0.9-1.1); Prothrombin Time 13.5 Seconds (9.0-12.0)
[2020-02-13 08:17] LABS: Partial Thromboplastin Time 57.1 Seconds (21.0-31.0)
[2020-02-13] MEDS: PANTOprazole 40 MG TAB PO SCH (08:19)
[2020-02-13] MEDS: DOCUSATE SODIUM/SENNA 50/8.6MG TAB PO SCH (08:19)
[2020-02-13] MEDS ORDERED: MICONAZOLE NITRATE POWDER 43 GM EXT PRN ×2 (10:58→11:00)
[2020-02-13] MEDS ORDERED: WARFARIN SOD 10 MG TAB PO SCH (16:00)
--- NOTE | 2020-02-13 17:18 | Hospitalist Progress Note ---
Date of Service February 13, 2020 Assessment & Plan (1) Acute hypoxemic respiratory failure: (1) Acute hypoxemic respiratory failure: Secondary to recurrent pulmonary embolism In the setting of status post right shoulder surgery Patient also developed acute PE after initial right shoulder surgery in May 2019, for which she completed a 6-month course of Coumadin CT angiogram: Positive bilateral acute PEs, with possible right heart strain Lower extremity Doppler ultrasound: No DVTs Echocardiogram noted, RV improving compared to May 2019 Discussed with tooth cutter spur Dr. Eddie Moreno continue Coumadin for now with either heparin or Lovenox bridge Question of possible transitioning to novel oral anticoagulants as outpatient INR 1.3 Will DC heparin, transition to Lovenox bridge tonight, continue Coumadin, 10 mg today Patient to be established with Coumadin clinic Weaned off oxygen Pulmonary service consulted appreciate recommendations Recommend lifelong anticoagulation 2 step exercise test: Does not meet criteria for oxygen supplementation Recent right shoulder surgery Postop day #4 Okay to proceed with anticoagulation per [facility] Ortho service Ice pack on the right upper arm every shift Follow-up with orthopedic service this week Hypertension Hypotension improved DC IV fluids Lisinopril on hold Prediabetes A1c 6.1 Outpatient follow-up Chronic anemia, hemoglobin at baseline DVT prophylaxis. Coumadin plus Lovenox Full code Disposition Anticipate discharge home medically stable tomorrow, on Coumadin plus Lovenox Admission and Anticipated Discharge Date Admission Date: February 10, 2020 Subjective ff up for acute PE Seen resting in bed side chair, comfortable, not in distress Had moderate dyspnea on exertion going to the bathroom and walking back to her chair No chest pain, dizziness, nausea vomiting, headache No dyspnea while at rest No bleeding Right upper arm pain improving No other symptoms Review of Systems Review of Systems: All systems reviewed & are unremarkable except as noted in HPI & below Physical Exam Physical Exam: General- oriented x 3, not in distress, speaks in sentences with no effort or accessory muscle use Eyes- anicteric Neck- no JVD Lungs- clear breath sounds bilaterally, no crackles, no wheezing noted Heart- normal rate, regular rhythm; no murmurs Abdomen- normal bowel sounds, nondistended, soft, nontender Extremities- no pretibial edema, no calf tenderness Right upper arm-surgical wound intact, morena intact, no active bleeding or discharge noted No surrounding hematoma, erythema, minimal tenderness Neuro- alert, oriented x 3; no gross focal neurologic deficits Skin- warm & dry Results & Data Results & Data ([facility]) Vital Signs (Past 12 Hours) Vital Signs Temp Pulse Pulse Pulse Pulse Pulse Resp 02/13/20 16:00 128 H 110 H 97 H 02/13/20 12:00 36.6 C 89 20 02/13/20 08:44 36.7 C 87 18 02/13/20 08:00 74 Resp Resp Resp BP Pulse Ox Pulse Ox Pulse Ox 02/13/20 16:00 28 H 28 H 22 94 97 02/13/20 12:00 131/74 98 02/13/20 08:44 135/81 95 02/13/20 08:00 Pulse Ox 02/13/20 16:00 98 02/13/20 12:00 02/13/20 08:44 02/13/20 08:00 Laboratory Results Laboratory Results - last 24 hr 02/13/20 07:08 PT 13.5 H INR 1.3 H APTT 57.1 H* PTT Ratio 2.0
[2020-02-13] MEDS: ENOXAPARIN 150 MG/ML SYR SQ SCH (18:36)
[2020-02-14] MEDS: OXYCODONE HCL IR 5 MG TAB (IMMEDIATE RELEASE) PO PRN ×3 (05:47→21:02)
[2020-02-14] MEDS: ENOXAPARIN 150 MG/ML SYR SQ SCH ×2 (06:30→18:07)
[2020-02-14] MEDS: DOCUSATE SODIUM/SENNA 50/8.6MG TAB PO SCH (09:36)
[2020-02-14] MEDS: PANTOprazole 40 MG TAB PO SCH (09:36)
[2020-02-14 09:41] LABS: Prothrombin Time 20.8 Seconds (9.0-12.0)
--- NOTE | 2020-02-14 13:17 | Hospitalist Progress Note ---
Date of Service February 14, 2020 Assessment & Plan (1) Acute hypoxemic respiratory failure: (1) Acute hypoxemic respiratory failure: Secondary to recurrent pulmonary embolism In the setting of status post right shoulder surgery Patient also developed acute PE after initial right shoulder surgery in May 2019, for which she completed a 6-month course of Coumadin CT angiogram: Positive bilateral acute PEs, with possible right heart strain Lower extremity Doppler ultrasound: No DVTs Echocardiogram noted, RV improving compared to May 2019 Discussed with pile driver operator barge mounted Dr. Eddie Moreno continue Coumadin for now with either heparin or Lovenox bridge Question of possible transitioning to novel oral anticoagulants as outpatient INR 2.0 on discharge today discharge on Coumadin 5mg po daily + Lovenox 150mg SC q12h (then d/c Lovenox once INR therapeutic x 2 days) Patient established with Coumadin clinic- messaged Clinical Pharmacist Aurea Guerrero Weaned off oxygen Pulmonary service consulted appreciate recommendations Recommend lifelong anticoagulation, follow up with D[employer] Operator 2 step exercise test: Does not meet criteria for oxygen supplementation Recent right shoulder surgery Postop day #5 Okay to proceed with anticoagulation per [facility] Ortho service Ice pack on the right upper arm every shift Follow-up with orthopedic service this week Hypertension Hypotension improved DC IV fluids resume Lisinopril Prediabetes A1c 6.1 Outpatient follow-up Chronic anemia, hemoglobin at baseline DVT prophylaxis. Coumadin plus Lovenox Full code Disposition d/c home today with home health service ff up with Coumadin Clinic and Ortho this week ff up with PCP in 1 week ff up with Drosophere Operator in 2 weeks Admission and Anticipated Discharge Date Admission Date: February 10, 2020 Subjective ff up for acute PE seen resting in chair, comfortable, in good spirits states she feels better today less dyspnea on exertion no chest pain, palpitations, dizziness no bleeding R Arm pain well controlled no other symptoms states she is ready and would like to be discharged today Review of Systems Review of Systems: All systems reviewed & are unremarkable except as noted in HPI & below Physical Exam Physical Exam: General- oriented x 3, not in distress, speaks in sentences with no effort or accessory muscle use Eyes- anicteric Neck- no JVD Lungs- clear breath sounds bilaterally, no crackles, no wheezing Heart- normal rate, regular rhythm; no murmurs Abdomen- normal bowel sounds, nondistended, soft, nontender Extremities- no pretibial edema, no calf tenderness TAMMY- dressing in place, no active discharge or bleeding moderate edema- improving no erythema/hematoma/tenderness Neuro- alert, oriented x 3; no gross focal neurologic deficits Skin- warm & dry Results & Data Results & Data ([facility]) Vital Signs (Past 12 Hours) Vital Signs Temp Pulse Pulse Resp BP Pulse Ox 02/14/20 11:38 36.8 C 86 20 151/78 H 99 02/14/20 08:00 86 02/14/20 07:31 36.9 C 87 20 154/74 H 96 02/14/20 04:35 36.7 C 99 H 19 111/84 98
[2020-02-14] MEDS ORDERED: WARFARIN SOD 5 MG TAB PO SCH (16:00)
[2020-02-14] MEDS ORDERED: lisinopriL 5 MG TAB PO ONE (20:17)
[2020-02-15] MEDS: OXYCODONE HCL IR 5 MG TAB (IMMEDIATE RELEASE) PO PRN ×2 (01:19→09:57)
[2020-02-15] MEDS: ENOXAPARIN 150 MG/ML SYR SQ SCH (05:46)
[2020-02-15 06:23] LABS: INR 2.2 (0.9-1.1); Prothrombin Time 21.8 Seconds (9.0-12.0)
--- NOTE | 2020-02-15 07:49 | Discharge Summary ---
Date of Service February 15, 2020 Admission HPI Per Admitting Provider History obtained from patient and records. Medical history significant for PE status post Coumadin, hypertension, hyperlipidemia, anxiety disorder, chronic anemia (baseline hemoglobin 11), right humerus fracture status post recent surgery. Last confinement May 2019 for bilateral PE with RV strain attributed to immobility from right humeral fracture secondary to fall. LE venous Dopplers negative for DVT. Patient completed 6 months of Coumadin anticoagulation. 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 No recollection of SCD or parenteral anticoagulation administration during overnight stay. Patient discharged home yesterday. Prescribed aspirin for blood clot prophylaxis. This afternoon patient noted sudden onset pleuritic right sided chest pain with shortness of breath somewhat radiating to the right shoulder. No unusual cough symptoms. Patient noted to be hypoxemic and tachycardic upon arrival of EMS. IV heparin started at the ER for pulmonary embolism on CAT scan. Medical History as above 2018 no malignancy on mammogram No prior colonoscopies. 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 Admission Exam Per Admitting Provider GENERAL: Slightly uncomfortable, morbidly obese, slightly anxious, minimal respiratory distress SKIN: Normal color, warm HEENT: [place] palpebral conjunctivae, no ptosis, dry buccal mucosa, nasal cannula in place NECK : Supple, short neck, no tenderness CHEST : Dried povidone iodine on right chest wall, CTA, no tenderness HEART : Tachycardic , no obvious murmurs ABDOMEN: Some distention, nontender EXTREMITIES : RUE sling, minimal LE swelling, no LE tenderness NEUROLOGIC : Coherent, no facial asymmetry, no other gross focality Principal Diagnosis Acute hypoxemic respiratory failure:Secondary to recurrent pulmonary embolism Status post right shoulder surgery Recent right shoulder surgery Hypertension Prediabetes Chronic anemia Discharge Exam ROS-No Headache, No Visual Changes, No Nausea, No Vomiting, No Fever, No Chills, No Neck Pain or Stiffness, No Chest Pain, No Palpitations, No SOB, No HOYT, No Cough, No Sputum, No Wheezing, No Abdominal Pain, No Diarrhea, No Hematemesis, No Hemoptysis, No Unexpected Weight Loss, No Flank pain, No Melena, No Hematochezia, No Frequency, No Urgency, No Burning, No Hematuria, No Rashes, No Diaphoresis. Appetite is Normal Physical Exam Gen-AAO x 3, NAD, Afebrile Head-NCAT, EOMI, PERRLA, Anicteric Sclera, No Posterior Pharyngeal Erythema Neck-Supple, No JVD, No Thyromegaly, No Masses, No LAD, No Bruits Lungs-Clear to Auscultation Bilaterally, No Rales, No Rhonchi, No Wheezing, No Crepitus Chest-No S4, +S1, +S2, No S3, No Murmurs, No Rubs, No Gallops, No Ectopy Abdomen-Soft, Bowel Sounds Present, Non Tender, Non Distended, No Hepatomegaly, No Splenomegaly, No Palpable Masses, No Rebound, No Rigidity, No Guarding Musculoskeletal-Full Range of Motion Bilaterally, No CVAT Extremities-No Cyanosis, No Clubbing, No Edema Nuero-Cranial Nerves II-XII grossly intact, Motor WNL, DTRs WNL, Strength WNL, Non Focal Psych-Normal Mood Discharge Data Allergies Allergy/AdvReac Type Severity Reaction Status Date / Time No Known Allergies Allergy Verified 02/10/20 17:49 Consultations 02/10/20 18:45 ED Decision to Admit Stat 02/11/20 13:32 Consult Pulmonology Routine Ordered Studies 02/10/20 16:11 CT angio chest PE protocol Stat 02/11/20 18:41 US venous doppler LE BI Stat Current Diagnoses Morbid (severe) obesity due to excess calories (02/10/20) Other pulmonary embolism without acute cor pulmonale (02/10/20) Acute respiratory failure with hypoxia (02/10/20) Gastro-esophageal reflux disease without esophagitis (02/10/20) Unspecified fracture of upper end of unspecified humerus, initial encounter for closed fracture (02/10/20) Allergies No Known Allergies Allergy (Verified 02/10/20 17:49) Height/Weight/Isolation Height 5 ft 4 in Weight 150.7 kg Hospital Course (1) Acute hypoxemic respiratory failure: (1) Acute hypoxemic respiratory failure: Secondary to recurrent pulmonary embolism In the setting of status post right shoulder surgery Patient also developed acute PE after initial right shoulder surgery in May 2019, for which she completed a 6-month course of Coumadin CT angiogram: Positive bilateral acute PEs, with possible right heart strain Lower extremity Doppler ultrasound: No DVTs Echocardiogram noted, RV improving compared to May 2019 Discussed with business management consultant Dr. Demar Moreno continue Coumadin for now with either heparin or Lovenox bridge Question of possible transitioning to novel oral anticoagulants as outpatient INR 2.0 on discharge today discharge on Coumadin 5mg po daily + Lovenox 150mg SC q12h (then d/c Lovenox once INR therapeutic x 2 days) Patient established with Coumadin clinic- messaged Clinical Pharmacist Aurea Guerrero Weaned off oxygen Pulmonary service consulted appreciate recommendations Recommend lifelong anticoagulation, follow up with Material Control Associate 2 step exercise test: Does not meet criteria for oxygen supplementation Recent right shoulder surgery Postop day #6 Okay to proceed with anticoagulation per [facility] Ortho service Ice pack on the right upper arm every shift Follow-up with orthopedic service this week Hypertension Hypotension improved DC IV fluids resume Lisinopril Prediabetes A1c 6.1 Outpatient follow-up Chronic anemia, hemoglobin at baseline DVT prophylaxis. Coumadin plus Lovenox Full code Disposition d/c home today with home health service ff up with Coumadin Clinic and Ortho this week ff up with PCP in 1 week ff up with Material Control Associate in 2 weeks Total Time Total Time Spent Total Time Spent (In Minutes): 45 mins Total Time Includes: Examination of the Patient, Discharge Planning, Medication Reconciliation and Communication With Other Providers Discharge Plan Discharge Items Patient Disposition: Home - Home Health Services Reason For Visit: RESP FAIL Discharge Diagnosis: ACUTE PULMONARY EMBOLISM, RECURRENCE Acute hypoxemic respiratory failure:Secondary to recurrent pulmonary embolism Status post right shoulder surgery Recent right shoulder surgery Hypertension Prediabetes Chronic anemia Condition on Discharge: Good Activity: Resume your previous activity Activity Comment: GRADUALLY TOLERATED, NO HEAVY EXERTION Lifting: Wait until after follow-up appointment Exercise/Sports: Wait until after follow-up appointment Driving/Machine Use: NO DRIVING UNTIL RE-EVALUATED AND ALLOWED BY PRIMARY CARE PHYSICIAN Non-emergency contact: Primary Care Provider and Surgeon Call non-emergency contact if: you have any medication questions, your symptoms worsen, your pain is not controlled, your pain is worsening, your pain is unusual for you, your pain is concerning for you, your wound has increased redness, your wound has increased drainage and your wound pain has increased Follow-up/Referrals: Julita Porter DO [Primary Care Provider] - 02/17/20 12:20 pm (02/17/2020 12:20 PM Provider Julita Porter Department Family [facility] ) Demar Moreno MD [Surgeon] - Diet: Heart Healthy Addtl Attending Provider Instructions: YOUR NEW MEDICATIONS ARE: COUMADIN- blood thinner tablet LOVENOX- blood thinner injection THE COUMADIN CLINIC PHARMACIST WILL BE CALLING YOU FOR ADVICE REGARDING DOSING OF COUMADIN AND LOVENOX IN 1-2 DAYS. IF YOU HAVE ANY HEAD TRAUMA, PROCEED TO THE ER IMMEDIATELY FOR EVALUATION. CALL PRIMARY CARE PHYSICIAN OR RETURN TO THE ER IMMEDIATELY IF WITH WORSENING OF SYMPTOMS. FOLLOW UP WITH COUMADIN CLINIC ADVISED. FOLLOW UP WITH ORTHOPEDIC DOCTOR THIS WEEK ADVISED. FOLLOW UP WITH PRIMARY CARE PHYSICIAN OUTLINED ABOVE. FOLLOW UP WITH [facility] DR. DEMAR MORENO ([facility]) IN 2 WEEKS. HIS CLINIC WILL BE CALLING YOU TO SCHEDULE THE APPOINTMENT. Pending Studies at Discharge: Yes Studies:: BLOODWORK (INR LEVEL) C/O HOME HEALTH SERVICE. Stand-Alone Forms: My [facility], Smoking Cessation Medications and DC Order Prescriptions: New enoxaparin [Lovenox] 150 mg/mL Syringe 150 mg subcut Q12H Qty: 14 RF: 0 sennosides-docusate sodium [Senokot-S] 8.6-50 mg Tablet 1 tab PO QAM 10 Days Qty: 10 RF: 0 warfarin 5 mg Tablet 5 mg PO DAILY@1600 Qty: 30 RF: 2 Continued lisinopril 20 mg tablet 20 mg PO QAM RF: 0 omeprazole 40 mg Capsule,Delayed Release(Dr/Ec) 40 mg PO DAILY RF: 0 acetaminophen [Tylenol Extra Strength] 500 mg Tablet 1,000 mg PO TID PRN (Reason: Pain) Qty: 0 RF: 0 oxycodone 5 mg tablet 5 mg PO Q4H PRN (Reason: Pain) RF: 0 Discontinued methocarbamol [Robaxin-750] 750 mg tablet 750 mg PO Q8H Qty: 90 RF: 0 aspirin [Aspir-81] 81 mg Tablet,Delayed Release (Dr/Ec) 81 mg PO BID RF: 0 Discharge Orders: Discharge Order (Routine); Ordered 02/15/20 Ordered By: Thor Irizarry/Other Patient Handouts: Prediabetes, Diabetes: Meal Planning, A1C Admission Data Admit Date/Time: 02/10/20 20:22 Attending Provider: Thor Aguilar Admit Provider: Torres Esposito Primary Care Provider: Julita Porter Other Providers: Lulu Mohan ; Alyssa Valente ; [facility],Home Healthcare Other Interventions: Discharge Summary Assessment (RN) Last Done: 02/14/20 13:46
[2020-02-15] MEDS: PANTOprazole 40 MG TAB PO SCH (08:12)
[2020-02-15] MEDS: DOCUSATE SODIUM/SENNA 50/8.6MG TAB PO SCH (08:12)
[2020-02-15] MEDS ORDERED: lisinopriL 5 MG TAB PO SCH (09:00)
== END 2020-02-15 10:40 | disposition home or self-care (01) | DRG 175 ==
LOC: ED 15:57 → SUATTDRO 20:22 → 2N 20:22

== ENCOUNTER 2024-11-19 18:47 | Inpatient (IN) ==
[2024-11-19 19:35] LABS: Basophils # (auto) 0.02 K/uL (0.00-0.20); Basophils % (auto) 0.3 %; Eosinophils # (auto) 0.14 K/uL (0.00-0.50); Eosinophils % (auto) 1.9 %; Hematocrit (blood only) 40.8 % (37.0-47.0); Hemoglobin 13.4 g/dl (12.0-16.0); Immature Granulocytes # (auto) 0.03 K/uL (0.01-0.20); Immature Granulocytes % (auto) 0.4 %; Lymphocytes # (auto) 1.07 K/uL (1.20-3.40); Lymphocytes % (auto) 14.2 %; Mean Corpuscular Hemoglobin 28.4 pg (25.0-34.0); Mean Corpuscular Hgb Conc 32.8 g/dL (32.0-36.0); Mean Corpuscular Volume 86.4 fL (80.0-100.0); Mean Platelet Volume 9.5 fL (9.4-12.4); Monocytes % (auto) 7.9 %; Neutrophils % (auto) 75.3 %; Platelet Count 292 K/uL (130-400); RDW Coefficient of Variation 14.8 % (11.5-14.5); RDW Standard Deviation 46.5 fL (36.4-46.3); Red Blood Count 4.72 M/uL (4.20-5.40); White Blood Count 7.56 K/ul (4.8-10.8)
--- NOTE | 2024-11-19 19:45 | XRay Report ---
EXAM: Radiograph of the Chest 1 View INDICATION: Left chest pain. Vomiting after food impaction. TECHNIQUE: Frontal view of the chest. COMPARISON: No relevant prior studies available. FINDINGS: Lungs and pleural spaces: Minimal basilar scarring or atelectasis. No consolidation or pulmonary edema. No pleural effusion or pneumothorax. Heart: Stable prominent cardiac shadow. Mediastinum: No mediastinal gas noted. Small to moderate hiatal hernia unchanged. Normal aortic contour. Bones/joints: Degenerative changes noted throughout the spine and both shoulders. No lytic or blastic lesions noted. Soft tissues: No abnormality noted. No radiopaque foreign body noted. Upper abdomen: No abnormality noted. IMPRESSION: Stable chronic changes. No acute disease. ACT 112: N/A Electronically signed by Katrina Rich 11-19-2024 7:44 PM
[2024-11-19 19:53] LABS: Alanine Aminotransferase 20 U/L (7-52); Albumin Level 3.9 gm/dl (3.4-5.0); Alkaline Phosphatase 72 U/L (34-104); Anion Gap 13 (3-11); Aspartate Aminotransferase 21 U/L (13-39); Bilirubin,Total 0.4 mg/dl (0.2-1.0); Blood Urea Nitrogen 15 mg/dl (6-23); Calcium 9.5 mg/dl (8.6-10.3); Carbon Dioxide 21 mmol/L (21-32); Chloride 104 mmol/L (98-107); Globulin 3.9 gm/dl (2.5-4.0); Glucose 94 mg/dl (70-99(Fasting)); Lipase 48 U/L (11-82); Potassium 3.7 mmol/L (3.5-5.1); Sodium 138 mmol/L (136-145); Total Protein 7.8 gm/dl (6.0-8.3)
[2024-11-19 20:06] LABS: INR 2.3 (0.9-1.1); Prothrombin Time 22.8 Seconds (9.0-12.0)
--- NOTE | 2024-11-19 20:52 | Emergency Department Note ---
Impression & Plan Hematemesis, Food impaction of esophagus, Left-sided chest pain ED Provider Note NAME: VERO HARRINGTON AGE: 59 SEX: Female INFORMANT: Patient ED PROVIDER(S): Mahendra Mahan MD CHIEF COMPLAINT: Vomiting PLAN: Disposition: Admitted Outpatient prescription management: none Referral: None MEDICAL DECISION MAKING: Patient presented because of vomiting and left-sided chest discomfort after the second episode. Chest x-ray was performed and did not reveal any acute findings. No acute ischemia on ECG. The patient had unremarkable CBC and chemistry panel. CT scan of the chest was performed with IV and oral contrast. Consultation was made with gastroenterology due to abnormal CT scan. Discussed case with Dr. Vidal. He recommended consultation with thoracic surgery due to potential for perforation. Discussed case with on-call thoracic surgery at [facility] Dr. Silver. He was able to review the patient's imaging. No acute indication for transfer or emergent intervention. Recommended admission for observation, monitoring and formal swallowing study here. He did advise for us to contact him if the patient has any issues. Patient did require 2 small doses of IV Dilaudid, Zofran, as well as IV acetaminophen for symptom control. Consultation was made with the [facility] hospitalist service, Dr. Rees. Patient was evaluated in the ER and admitted for further management Care/management discussed with: optical store manager, gastroenterology, thoracic surgery, hospitalist Level of care consideration(s): After review of the information above and other included data, I feel the patient requires escalation of care to admission Triage Nursing notes: reviewed and agree them. Vital Signs: reviewed and remarkable for hypertension Additional History obtained from: none Chronic Medical/Social Conditions affecting care: Esophageal stricture Prior/ Outside/ External records reviewed: none Differential Diagnosis: Etiologies such as esophageal food impaction, esophageal rupture, gastroenteritis, food borne illness, infections, appendicitis, diverticulitis, inflammatory bowel disease, GI bleed, biliary pathology, as well as others were entertained. Diagnostics, independently interpreted by me: ECG: Twelve-lead ECG reveals a sinus rhythm with sinus arrhythmia at 88 bpm. Anterolateral T wave abnormality present. When compared to 04 January 2021 there is no significant change. Cardiac Monitoring: Cardiac monitoring ordered by me: The patient was placed on continuous cardiac monitoring and observed. It revealed a normal sinus rhythm at 98 beats per minute without ectopy or evidence of dysrhythmia. Medical decision rules: none Imaging studies: Chest x-ray. Findings: A chest x-ray was performed and revealed no pneumothorax, effusion, infiltrate, pulmonary edema, free air under the diaphragm, or wide mediastinum. Impression: No acute disease. HPI: 59 year old Female arrives for evaluation of vomiting. This started this evening and is related to getting a bite of hoagie stuck deep in her throat. Patient states she has had esophageal strictures dilated twice before by [facility] gastroenterology. She had taken a bite and tried to swallow. It felt like it got stuck. She was able to vomit liquids at first. She then had another episode of vomiting and saw blood tingeing as well as clumps of blood. She states that she did expel what looked like the bite of hoagie. Patient notes that she is on Coumadin but has held this due to being on antibiotics over the last week. She is on Coumadin secondary to history of blood clot. Patient notes after the episode of vomiting she had discomfort in the left side of her chest that was worsened with breathing. She rated her pain as a 5. The patient also notes the following associated symptoms, tingling in both arms after the vomiting. The patient has taken no medication for relieving factors. Pt denies LOC, headache, fevers, chills, diaphoresis, visual changes, neck pain, breathing difficulties, abdominal pain, back pain, melena, hematochezia, urinary symptoms, numbness, weakness, lymphadenopathy, rash, or other complaints.. PAST MEDICAL HISTORY: See Below, esophageal stricture, DVT, anticoagulated PAST SURGICAL HISTORY: See Below, SOCIAL HISTORY: See Below, non-smoker HOME MEDICATIONS: See Below ALLERGIES: See Below VITALS: See Below PHYSICAL EXAMINATION: GENERAL: Awake, alert, uncomfortable-appearing, in no distress HENT: Normocephalic, atraumatic. Oropharynx unremarkable. EYES: Normal conjunctiva. Sclera non-icteric. NECK: Inspection normal. Non-tender. Supple. No nuchal rigidity. FROM. No masses. RESPIRATORY: Clear to auscultation. No wheezes. No rales. Normal respiratory effort. CARDIAC: Normal rate. Normal rhythm. No murmurs. No rubs. Extremities warm and well perfused. Pulses equal. No JVD. GI: Soft, non-distended. No tenderness to palpation. No rebound or guarding. No masses. RECTAL: Deferred. MUSCULOSKELETAL: Atraumatic. Chest examination reveals no tenderness. The back is symmetrical on inspection without obvious abnormality. There is no CVA tenderness to palpation. No joint edema. LOWER EXTREMITIES: Calves are equal size bilaterally and non-tender. No edema. No discoloration. NEURO: Normal sensorium. No sensory or motor deficits noted. SKIN: No rash or jaundice noted. PROCEDURES: none CRITICAL CARE: none OBSERVATION NOTE: none Past Med/Surg History Problem List (Updated 11/19/24 @ 20:52 by Mahendra Mahan MD) Left-sided chest pain (Acute) Food impaction of esophagus (Acute) Hematemesis (Acute) Chronic venous insufficiency (Acute) Venous stasis ulcers of both lower extremities (Acute) Acute hypoxemic respiratory failure Dermatitis (Acute) Hyperlipidemia Nonunion of fracture of humerus Pressure ulcer (Acute) Bilateral primary osteoarthritis of knee Proximal humerus fracture (Acute) Fungal infection of skin (Acute) Morbid obesity Right ventricular dilation Discharge planning issues Acute electrocardiogram changes Elevated troponin (Acute) DVT prophylaxis Bilateral pulmonary embolism (Acute) Hypertension GERD (gastroesophageal reflux disease) Proximal humerus fracture Medical History (Updated 11/19/24 @ 20:52 by Mahendra Mahan MD) Sprain of medial collateral ligament of knee Snoring Knee pain Dry eyes Diarrhea Dysphagia Osteoarthritis Kidney stones Anxiety no meds Surgical History History of ERCP Status post wrist surgery right History of repair of left rotator cuff History of arthroscopy of left knee History of lithotripsy History of umbilical hernia repair History of cholecystectomy History of esophagogastroduodenoscopy (EGD) History of tooth extraction Family History Mother Family history of reaction to anesthesia nausea/vomiting, "difficulty waking up" Hypertension Denies family history of Clotting disorder Social History Smoking Status: Never smoker Second Hand Exposure: No; Do You Dip or Chew Tobacco: No; Hx Alcohol Use: No Hx Substance Use: No Preferred Language: Hungarian Communication Ability: Effective Genetic Coordinator Required: No Beliefs That Will Affect Care: None marital status: Single Current Living Situation: Family Current Living Situation Comment: Pt has her own place, but stays with her mother often current occupational status: employed current occupation: [employer] Feels Safe at Home: Yes during the past year weight has: remained stable Assistive Devices: Oxygen - at Night Allergies Allergies Allergy/AdvReac Type Severity Reaction Status Date / Time No Known Allergies Allergy Verified 04/05/24 11:58 Home Meds Home Medications Medication Instructions Recorded Confirmed acetaminophen 325 mg tablet 325 mg PO QID PRN Pain 07/29/23 11/19/24 (Tylenol) albuterol sulfate 90 mcg/actuation 2 puff inhalation Q6H PRN SOB 07/29/23 11/19/24 aerosol inhaler bupropion HCl 150 mg tablet,12 hr 150 mg PO DAILY 07/29/23 11/19/24 sustained-release (Wellbutrin SR) cholecalciferol (vitamin D3) 50 50 mcg PO DAILY 07/29/23 11/19/24 mcg (2,000 unit) capsule mecobalamin (vitamin B12) 500 mcg 500 mcg PO QAM 07/29/23 11/19/24 chewable tablet metformin 850 mg tablet 850 mg PO BID 07/29/23 11/19/24 naltrexone 50 mg tablet 25 mg PO BID 07/29/23 11/19/24 rosuvastatin 10 mg tablet 10 mg PO DAILY 07/29/23 11/19/24 duloxetine 60 mg capsule,delayed 60 mg PO QAM 11/19/24 11/19/24 release famotidine 20 mg tablet 20 mg PO QAM 11/19/24 11/19/24 hydroxyzine pamoate 25 mg capsule 25 - 50 mg PO HS 11/19/24 11/19/24 lisinopril 40 mg tablet 40 mg PO DAILY 11/19/24 11/19/24 Previous Rx's Medication Instructions Recorded warfarin 5 mg tablet 5 mg PO DAILY@1600 #30 tabs 02/14/20 Results & Data (ED) Vital Signs Vital Signs - 24 hr 11/19/24 18:52 11/19/24 19:04 11/19/24 20:01 Temperature 36.6 C Temperature Source Temporal Artery Scan Pulse Rate 96 H 94 H Pulse Rate [Right Finger] Pulse Rate from SpO2 Sensor Pulse Rhythm Respiratory Rate 18 21 Respiratory Effort / Characteristics Respiratory Depth Respiratory Pattern Blood Pressure 155/98 H 186/119 H 177/98 H Blood Pressure [Left Arm] Blood Pressure Mean 117 132 124 Blood Pressure Mean [Left Arm] Blood Pressure Position [Left Arm] Pulse Oximetry 97 97 Oxygen Delivery Method Room Air Sepsis Recent Fever Within 48 Hours No Sepsis New/Unexplained Change in Mental Status No Sepsis Action Taken by Nursing No Action Required 11/19/24 21:03 11/19/24 21:30 11/19/24 22:00 Temperature Temperature Source Pulse Rate 106 H 101 H Pulse Rate [Right Finger] Pulse Rate from SpO2 Sensor 107 H 102 H Pulse Rhythm Respiratory Rate 22 16 30 H Respiratory Effort / Characteristics Respiratory Depth Respiratory Pattern Blood Pressure 170/91 H 129/96 148/82 H Blood Pressure [Left Arm] Blood Pressure Mean 117 119 104 Blood Pressure Mean [Left Arm] Blood Pressure Position [Left Arm] Pulse Oximetry 97 96 97 Oxygen Delivery Method Sepsis Recent Fever Within 48 Hours Sepsis New/Unexplained Change in Mental Status Sepsis Action Taken by Nursing 11/19/24 22:30 11/19/24 23:00 11/19/24 23:12 Temperature Temperature Source Pulse Rate 101 H 102 H Pulse Rate [Right Finger] 102 H Pulse Rate from SpO2 Sensor 94 H Pulse Rhythm Regular Respiratory Rate 21 22 22 Respiratory Effort / Characteristics Non-Labored Spontaneous Respiratory Depth Normal Respiratory Pattern Regular Blood Pressure 159/87 H Blood Pressure [Left Arm] 159/87 H Blood Pressure Mean 111 Blood Pressure Mean [Left Arm] 111 Blood Pressure Position [Left Arm] Sitting Pulse Oximetry 96 97 97 Oxygen Delivery Method Room Air Room Air Sepsis Recent Fever Within 48 Hours Sepsis New/Unexplained Change in Mental Status Sepsis Action Taken by Nursing Laboratory Data 11/19/24 19:06 11/19/24 19:06 Lab Results 11/19/24 Range/Units 19:06 WBC 7.56 (4.8-10.8) K/ul RBC 4.72 (4.20-5.40) M/uL Hgb 13.4 (12.0-16.0) g/dl Hct 40.8 (37.0-47.0) % MCV 86.4 (80.0-100.0) fL MCH 28.4 (25.0-34.0) pg MCHC 32.8 (32.0-36.0) g/dL RDW Std Deviation 46.5 H (36.4-46.3) fL RDW Coeff of Cher 14.8 H (11.5-14.5) % Plt Count 292 (130-400) K/uL MPV 9.5 (9.4-12.4) fL Immature Gran % (Auto) 0.4 % Neut % (Auto) 75.3 % Lymph % (Auto) 14.2 % [place] % (Auto) 7.9 % Eos % (Auto) 1.9 % Baso % (Auto) 0.3 % Neut # (Auto) 5.70 (1.40-6.50) K/uL Lymph # (Auto) 1.07 L (1.20-3.40) K/uL [place] # (Auto) 0.60 H (0.11-0.59) K/uL Eos # (Auto) 0.14 (0.00-0.50) K/uL Baso # (Auto) 0.02 (0.00-0.20) K/uL Immature Gran # (Auto) 0.03 (0.01-0.20) K/uL PT 22.8 H (9.0-12.0) Seconds INR 2.3 H (0.9-1.1) Sodium 138 (136-145) mmol/L Potassium 3.7 (3.5-5.1) mmol/L Chloride 104 (98-107) mmol/L Carbon Dioxide 21 (21-32) mmol/L Anion Gap 13 H (3-11) BUN 15 (6-23) mg/dl Creatinine 1.25 H (0.6-1.2) mg/dl Est Cr Clr Drug Dosing Not Reportable eGFR 49.34 BUN/Creatinine Ratio 12.0 (10-20) Glucose 94 (70-99(Fasting)) mg/dl Calcium 9.5 (8.6-10.3) mg/dl Total Bilirubin 0.4 (0.2-1.0) mg/dl AST 21 (13-39) U/L ALT 20 (7-52) U/L Alkaline Phosphatase 72 (34-104) U/L Troponin I High Sens 10.0 (0-14) pg/ml Total Protein 7.8 (6.0-8.3) gm/dl Albumin 3.9 (3.4-5.0) gm/dl Globulin 3.9 (2.5-4.0) gm/dl Albumin/Globulin Ratio 1.0 (0.9-2) Lipase 48 (11-82) U/L Administered Medications Hydromorphone HCl (Hydromorphone Inj 0.5 Mg/0.5 Ml Syr) 0.25 mg IV Q15M PRN PRN Reason: Pain Stop: 12/03/24 20:12 Last Admin: 11/19/24 21:38 Dose: 0.25 mg Documented By: Admin: 11/19/24 20:16 Dose: 0.25 mg Documented By: JOLEEN Sodium Chloride (Nss) 1,000 mls @ 125 mls/hr IV .Q8H GEORGE Stop: 11/22/24 18:59 Last Admin: 11/19/24 19:36 Dose: 125 mls/hr Documented By: JOLEEN Discontinued Medications Famotidine (Pepcid 20mg Iv Push) 20 mg in 5 mls @ 2.5 mls/min IV NOW STA Stop: 11/19/24 19:17 Last Admin: 11/19/24 19:36 Dose: 2.5 mls/min Documented By: JOLEEN Pantoprazole Sodium (Protonix) 40 mg in 10 mls @ 5 mls/min IV NOW ONE Stop: 11/19/24 19:17 Last Admin: 11/19/24 19:36 Dose: 5 mls/min Documented By: JOLEEN Acetaminophen (Ofirmev) 1,000 mg in 100 mls @ 400 mls/hr IV NOW STA Stop: 11/19/24 21:55 Last Infusion: 11/19/24 22:45 Dose: Infused Documented By: Admin: 11/19/24 21:45 Dose: 400 mls/hr Documented By: JOLEEN Ioversol (Optiray 320 100ml) 90 ml IV ONCE ONE Stop: 11/19/24 20:26 Last Admin: 11/19/24 20:25 Dose: 90 ml Documented By: EFRAIN Ondansetron HCl (Ondansetron Inj 2 Mg/Ml 2 Ml Vial) 4 mg IV NOW STA Stop: 11/19/24 20:14 Last Admin: 11/19/24 20:16 Dose: 4 mg Documented By: JOLEEN Imaging Data Radiologist's Impression: Chest X-Ray 11/19/24 19:16 EXAM: Radiograph of the Chest 1 View INDICATION: Left chest pain. Vomiting after food impaction. TECHNIQUE: Frontal view of the chest. COMPARISON: No relevant prior studies available. FINDINGS: Lungs and pleural spaces: Minimal basilar scarring or atelectasis. No consolidation or pulmonary edema. No pleural effusion or pneumothorax. Heart: Stable prominent cardiac shadow. Mediastinum: No mediastinal gas noted. Small to moderate hiatal hernia unchanged. Normal aortic contour. Bones/joints: Degenerative changes noted throughout the spine and both shoulders. No lytic or blastic lesions noted. Soft tissues: No abnormality noted. No radiopaque foreign body noted. Upper abdomen: No abnormality noted. IMPRESSION: Stable chronic changes. No acute disease. ACT 112: N/A Electronically signed by Katrina Rich 11-19-2024 7:[address] 11/19/24 19:57 Exam(s): CT CHEST With Contrast Oral - High Density Amt: 30 ML GASTROVIEW, IV Amt: 90 ML OPTIRAY 320 EXAM: CT Chest With Intravenous Contrast CLINICAL HISTORY: vomiting blood, left chest pain. oral contrast. TECHNIQUE: Axial computed tomography images of the chest with intravenous contrast. CTDI is 37.24 mGy and DLP is 1263.29 mGy-cm. Automated exposure control was utilized for the study. A dose lowering technique was utilized adhering to the principles of ALARA. CONTRAST: Patient received 30 ML GASTROVIEW of Oral - High Density and 90 ML OPTIRAY 320 of IV contrast COMPARISON: No relevant prior studies available. FINDINGS: Artifacts: Scatter artifact likely related to patient's body habitus. Limitations: There is respiratory artifact, which degrades image quality on multiple image slices. Lungs: The lungs are well aerated with minimal subsegmental changes adjacent to the small volume left pleural effusion. No mass. No consolidation. Pleural space: Small volume left pleural effusion layering posteriorly in the subpulmonic space. No loculation. Heart: Unremarkable. No cardiomegaly. No significant pericardial effusion. No significant coronary artery calcifications. Mediastinum: Sliding hiatal hernia containing the fundus of the stomach. There is minimal oral contrast noted in the mid to distal esophagus. No evidence for obstruction. Concentric mucosal prominence throughout the thoracic esophagus is new from the previous examination. No definite leakage or pneumomediastinum. There is relative localized mediastinal fat stranding involving the lateral aspect of the distal esophagus which extends laterally in a horizontal plane and circumferentially noted surrounding the esophagus. Bones/joints: Surgical hardware involving the proximal right humerus. Severe degenerative changes involving the right shoulder. Moderately severe degenerative changes involving the left shoulder. No definite acute osseous abnormality, accounting for limitations with respiratory artifact. Soft tissues: Unremarkable. Vasculature: Unremarkable. No thoracic aortic aneurysm. Lymph nodes: Unremarkable. No enlarged lymph nodes. IMPRESSION: 1. Sliding hiatal hernia containing the fundus of the stomach. There is minimal oral contrast noted in the mid to distal esophagus. No evidence for obstruction. Concentric mucosal prominence throughout the thoracic esophagus is new from the previous examination. No definite leakage or pneumomediastinum. The appearance suggests developing hypertrophic changes or inflammatory infectious esophagitis. 2. There is relative localized mediastinal fat stranding involving the lateral aspect of the distal esophagus which extends laterally in a horizontal plane. The pattern of involvement is not typical for inflammatory changes from the esophagus. This may represent atypical changes from the suspected esophagitis or may represent nonspecific mediastinitis. No abscess. 3. Small volume left pleural effusion layering posteriorly in the subpulmonic space. No loculation. Presumed adjacent subsegmental atelectasis. Electronically signed by: Erik Lomeli MD 11/19/24 20:58 PM Discharge Plan Visit Data Chief Complaint: Vomiting Stated Complaint: VOMMITING BLOOD, NUMBNESS, BLOOD THINNERS ED Provider: Mahendra Mahan Discharge Problem: Hematemesis, Food impaction of esophagus, Left-sided chest pain Patient Disposition: Home - Self-Care Condition: Good Forms Stand Alone Forms: My [facility], Important Visit Information Prescriptions Prescriptions: No Action bupropion HCl [Wellbutrin SR] 150 mg tablet sustained-release 12 hr 150 mg PO DAILY albuterol sulfate 90 mcg/actuation HFA aerosol inhaler 2 puff inhalation Q6H PRN (Reason: SOB) naltrexone 50 mg tablet 25 mg PO BID metformin 850 mg tablet 850 mg PO BID rosuvastatin 10 mg tablet 10 mg PO DAILY mecobalamin (vitamin B12) 500 mcg tablet,chewable 500 mcg PO QAM cholecalciferol (vitamin D3) 50 mcg (2,000 unit) capsule 50 mcg PO DAILY acetaminophen [Tylenol] 325 mg tablet 325 mg PO QID PRN (Reason: Pain) warfarin 5 mg Tablet 5 mg PO DAILY@1600 Qty: 30 2RF famotidine 20 mg tablet 20 mg PO QAM lisinopril 40 mg tablet 40 mg PO DAILY hydroxyzine pamoate 25 mg capsule 25 - 50 mg PO HS duloxetine 60 mg capsule,delayed release(DR/EC) 60 mg PO QAM Referrals Referrals: Julita Porter DO [Primary Care Provider] -
--- NOTE | 2024-11-19 20:59 | CT Scan Report ---
Exam(s): CT CHEST With Contrast Oral - High Density Amt: 30 ML GASTROVIEW, IV Amt: 90 ML OPTIRAY 320 EXAM: CT Chest With Intravenous Contrast CLINICAL HISTORY: vomiting blood, left chest pain. oral contrast. TECHNIQUE: Axial computed tomography images of the chest with intravenous contrast. CTDI is 37.24 mGy and DLP is 1263.29 mGy-cm. Automated exposure control was utilized for the study. A dose lowering technique was utilized adhering to the principles of ALARA. CONTRAST: Patient received 30 ML GASTROVIEW of Oral - High Density and 90 ML OPTIRAY 320 of IV contrast COMPARISON: No relevant prior studies available. FINDINGS: Artifacts: Scatter artifact likely related to patient's body habitus. Limitations: There is respiratory artifact, which degrades image quality on multiple image slices. Lungs: The lungs are well aerated with minimal subsegmental changes adjacent to the small volume left pleural effusion. No mass. No consolidation. Pleural space: Small volume left pleural effusion layering posteriorly in the subpulmonic space. No loculation. Heart: Unremarkable. No cardiomegaly. No significant pericardial effusion. No significant coronary artery calcifications. Mediastinum: Sliding hiatal hernia containing the fundus of the stomach. There is minimal oral contrast noted in the mid to distal esophagus. No evidence for obstruction. Concentric mucosal prominence throughout the thoracic esophagus is new from the previous examination. No definite leakage or pneumomediastinum. There is relative localized mediastinal fat stranding involving the lateral aspect of the distal esophagus which extends laterally in a horizontal plane and circumferentially noted surrounding the esophagus. Bones/joints: Surgical hardware involving the proximal right humerus. Severe degenerative changes involving the right shoulder. Moderately severe degenerative changes involving the left shoulder. No definite acute osseous abnormality, accounting for limitations with respiratory artifact. Soft tissues: Unremarkable. Vasculature: Unremarkable. No thoracic aortic aneurysm. Lymph nodes: Unremarkable. No enlarged lymph nodes. IMPRESSION: 1. Sliding hiatal hernia containing the fundus of the stomach. There is minimal oral contrast noted in the mid to distal esophagus. No evidence for obstruction. Concentric mucosal prominence throughout the thoracic esophagus is new from the previous examination. No definite leakage or pneumomediastinum. The appearance suggests developing hypertrophic changes or inflammatory infectious esophagitis. 2. There is relative localized mediastinal fat stranding involving the lateral aspect of the distal esophagus which extends laterally in a horizontal plane. The pattern of involvement is not typical for inflammatory changes from the esophagus. This may represent atypical changes from the suspected esophagitis or may represent nonspecific mediastinitis. No abscess. 3. Small volume left pleural effusion layering posteriorly in the subpulmonic space. No loculation. Presumed adjacent subsegmental atelectasis. Electronically signed by: Erik Lomeli MD 11/19/24 20:58 PM
--- NOTE | 2024-11-20 00:08 | History & Physical Report ---
Date of Service November 19, 2024 Assessment & Plan (1) Food impaction of esophagus: Plan: 59-year-old female with past medical history significant for hypercholesteremia, prediabetes, CKD stage III, recurrent pulmonary embolism, hypertension, chronic diastolic CHF, venous insufficiency, venous stasis dermatitis, morbid obesity, chronic pain, iron deficiency anemia, adjustment disorder, history of esophageal stricture status post dilatation several years ago comes because of food impaction of esophagus and hematemesis. Patient today evening was eating hoagie which got stuck deep in her throat. She was able to vomit liquid at first then she had another episode of vomiting with soft blood tingeing as well as clumps of blood and she thinks she vomited all the food. Patient is on Coumadin but was held for last week for antibiotics for sores on her left lower extremities. She says the wounds are healed up. She completed antibiotic yesterday. And after this episode of vomiting patient felt left sided chest pain, abdominal pain, headache , dizziness and came to the ER. In the ER CT scan was done with IV and oral contrast which showed no definite leakage or pneumomediastinum but showed inflammatory/infectious esophagitis and also small volume left pleural effusion. ER talked with CT surgery at [facility] and was recommended barium swallow test. To call back CT surgery if barium swallow shows anything or if anything changes. No antibiotics recommended at this time. Patient received pain medication. Currently feeling better. Headache improved. Abdominal pain and chest pain improved. Has mild some epigastric discomfort. Earlier had dizziness that improved. No more episodes of vomiting. No blurred vision. No runny nose no sore throat. No cough. No fevers. No shortness of breath. Currently no nausea. Normal bowel and bladder movements. Resting comfortably and hemodynamically stable. Food impaction of esophagus Hx of oesophageal stricture and status post dilatation Status post vomiting and hematemesis with relief of impaction Hemoglobin stable at 13.4 .hemodynamics okay No more episodes of vomiting N.p.o., IV fluids, Protonix drip GI consult in a.m. Will follow-up with barium swallow and if any concerns will call back CT [facility] monitor Obstructive sleep apnea CPAP nightly Diabetes Sliding scale Will monitor HbA1c levels HESHAM on CKD stage III Baseline creatinine 1-1.1 Current creatinine 1.2 Holding lisinopril Follow repeat labs HTN Holding lisinopril iv labetalol prn will monitor Prolonged QTc Avoid QT prolonging drugs Follow repeat EKG Chest pain Mostly from above Troponin okay Will follow repeat EKG and troponins Chronic diastolic CHF Getting fluids Monitor for volume overload Hyperlipidemia Hold statin for now ,restart as soon as possible History of PE Hold Coumadin for now Restart when okay with GI Depression Holding bupropion for now DVT prophylaxis SCDs for now Disposition Med/telemetry Full code. History of Present Illness Chief Complaint: Food impaction and hematemesis Primary Care Provider: Julita Porter DO 59-year-old female with past medical history significant for hypercholesteremia, prediabetes, CKD stage III, recurrent pulmonary embolism, hypertension, chronic diastolic CHF, venous insufficiency, venous stasis dermatitis, morbid obesity, chronic pain, iron deficiency anemia, adjustment disorder, history of esophageal stricture status post dilatation several years ago comes because of food impaction of esophagus and hematemesis. Patient today evening was eating hoagie which got stuck deep in her throat. She was able to vomit liquid at first then she had another episode of vomiting with soft blood tingeing as well as clumps of blood and she thinks she vomited all the food. Patient is on Coumadin but was held for last week for antibiotics for sores on her left lower extremities. She says the wounds are healed up. She completed antibiotic yesterday. And after this episode of vomiting patient felt left sided chest pain, abdominal pain, headache , dizziness and came to the ER. In the ER CT scan was done with IV and oral contrast which showed no definite leakage or pneumomediastinum but showed inflammatory/infectious esophagitis and also small volume left pleural effusion. ER talked with CT surgery at [facility] and was recommended barium swallow test. To call back CT surgery if barium swallow shows anything or if anything changes. No antibiotics recommended at this time. Patient received pain medication. Currently feeling better. Headache improved. Abdominal pain and chest pain improved. Has mild some epigastric discomfort. Earlier had dizziness that improved. No more episodes of vomiting. No blurred vision. No runny nose no sore throat. No cough. No fevers. No shortness of breath. Currently no nausea. Normal bowel and bladder movements. Resting comfortably and hemodynamically stable. Past medical history. As mentioned above. Past surgical history EGD. Laparoscopic cholecystectomy. Left repair of knee cartilage. Left shoulder arthroscopy. Right wrist arthroscopy. Social history. No smoking. No alcohol use. No drug use. Family history. Maternal grandmother had breast cancer. Mother had hypertension. Allergies Allergy/AdvReac Type Severity Reaction Status Date / Time No Known Allergies Allergy Verified 04/05/24 11:58 Home Medications Medication Instructions Recorded Confirmed Type warfarin 5 mg tablet 5 mg PO DAILY@1600 #30 tabs 02/14/20 11/19/24 Rx acetaminophen 325 mg tablet 325 mg PO QID PRN Pain 07/29/23 11/19/24 History (Tylenol) albuterol sulfate 90 mcg/actuation 2 puff inhalation Q6H PRN SOB 07/29/23 11/19/24 History aerosol inhaler bupropion HCl 150 mg tablet,12 hr 150 mg PO DAILY 07/29/23 11/19/24 History sustained-release (Wellbutrin SR) cholecalciferol (vitamin D3) 50 50 mcg PO DAILY 07/29/23 11/19/24 History mcg (2,000 unit) capsule mecobalamin (vitamin B12) 500 mcg 500 mcg PO QAM 07/29/23 11/19/24 History chewable tablet metformin 850 mg tablet 850 mg PO BID 07/29/23 11/19/24 History naltrexone 50 mg tablet 25 mg PO BID 07/29/23 11/19/24 History rosuvastatin 10 mg tablet 10 mg PO DAILY 07/29/23 11/19/24 History duloxetine 60 mg capsule,delayed 60 mg PO QAM 11/19/24 11/19/24 History release famotidine 20 mg tablet 20 mg PO QAM 11/19/24 11/19/24 History hydroxyzine pamoate 25 mg capsule 25 - 50 mg PO HS 11/19/24 11/19/24 History lisinopril 40 mg tablet 40 mg PO DAILY 11/19/24 11/19/24 History Past Med/Surg History Problem List (Updated 11/19/24 @ 20:52 by Mahendra Mahan MD) Left-sided chest pain (Acute) Food impaction of esophagus (Acute) Hematemesis (Acute) Chronic venous insufficiency (Acute) Venous stasis ulcers of both lower extremities (Acute) Acute hypoxemic respiratory failure Dermatitis (Acute) Hyperlipidemia Nonunion of fracture of humerus Pressure ulcer (Acute) Bilateral primary osteoarthritis of knee Proximal humerus fracture (Acute) Fungal infection of skin (Acute) Morbid obesity Right ventricular dilation Discharge planning issues Acute electrocardiogram changes Elevated troponin (Acute) DVT prophylaxis Bilateral pulmonary embolism (Acute) Hypertension GERD (gastroesophageal reflux disease) Proximal humerus fracture Medical History (Updated 11/19/24 @ 20:52 by Mahendra Mahan MD) Sprain of medial collateral ligament of knee Snoring Knee pain Dry eyes Diarrhea Dysphagia Osteoarthritis Kidney stones Anxiety no meds Surgical History History of ERCP Status post wrist surgery right History of repair of left rotator cuff History of arthroscopy of left knee History of lithotripsy History of umbilical hernia repair History of cholecystectomy History of esophagogastroduodenoscopy (EGD) History of tooth extraction Family History Mother Family history of reaction to anesthesia nausea/vomiting, "difficulty waking up" Hypertension Denies family history of Clotting disorder Social History Smoking Status: Never smoker Second Hand Exposure: No; Do You Dip or Chew Tobacco: No; Hx Alcohol Use: No Hx Substance Use: No Preferred Language: Kyrgyz Communication Ability: Effective Tag Stringer Required: No Beliefs That Will Affect Care: None marital status: Single Current Living Situation: Alone Current Living Situation Comment: Pt has her own place, but stays with her mother often current occupational status: employed current occupation: [employer] Feels Safe at Home: Yes during the past year weight has: remained stable Assistive Devices: CPAP Review of Systems Review of Systems: All systems reviewed & are unremarkable except as noted in HPI & below Physical Exam Physical Exam: General- Not in distress Head- atraumatic Eyes- PERRL. ENT- oropharynx clear Neck- supple, no JVD. Lungs- clear to auscultation no wheezing or crackles. Heart- regular rhythm; no murmur, no gallop. Abdomen- normal bowel sounds, soft, nontender, no distension Extremities- mild pretibial edema, chronic skin changes seen Neuro- alert, oriented PERRL, no facial palsy; no dysarthria; moves extremities Results & Data Results & Data Vital Signs (Past 12 Hours) Vital Signs Temp Pulse Pulse Resp BP BP Pulse Ox 11/19/24 23:12 102 H 22 97 11/19/24 23:00 102 H 22 159/87 H 97 11/19/24 22:30 101 H 21 159/87 H 96 11/19/24 22:00 101 H 30 H 148/82 H 97 11/19/24 21:30 106 H 16 129/96 96 11/19/24 21:03 22 170/91 H 97 11/19/24 20:01 94 H 21 177/98 H 97 11/19/24 19:04 186/119 H 11/19/24 18:52 36.6 C 96 H 18 155/98 H 97 O2 Del Method 11/19/24 23:12 Room Air 11/19/24 23:00 Room Air 11/19/24 22:30 11/19/24 22:00 11/19/24 21:30 11/19/24 21:03 11/19/24 20:01 11/19/24 19:04 11/19/24 18:52 Room Air Diagnostic Findings Laboratory Results WBC 7.56 K/ul (4.8-10.8) 11/19/24 19:06 RBC 4.72 M/uL (4.20-5.40) 11/19/24 19:06 Hgb 13.4 g/dl (12.0-16.0) 11/19/24 19:06 Hct 40.8 % (37.0-47.0) 11/19/24 19:06 MCV 86.4 fL (80.0-100.0) 11/19/24 19:06 MCH 28.4 pg (25.0-34.0) 11/19/24 19:06 MCHC 32.8 g/dL (32.0-36.0) 11/19/24 19:06 RDW Std Deviation 46.5 fL (36.4-46.3) H 11/19/24 19:06 RDW Coeff of Cher 14.8 % (11.5-14.5) H 11/19/24 19:06 Plt Count 292 K/uL (130-400) 11/19/24 19:06 MPV 9.5 fL (9.4-12.4) 11/19/24 19:06 Immature Gran % (Auto) 0.4 % 11/19/24 19:06 Neut % (Auto) 75.3 % 11/19/24 19:06 Lymph % (Auto) 14.2 % 11/19/24 19:06 Nye % (Auto) 7.9 % 11/19/24 19:06 Eos % (Auto) 1.9 % 11/19/24 19:06 Baso % (Auto) 0.3 % 11/19/24 19:06 Neut # (Auto) 5.70 K/uL (1.40-6.50) 11/19/24 19:06 Lymph # (Auto) 1.07 K/uL (1.20-3.40) L 11/19/24 19:06 Nye # (Auto) 0.60 K/uL (0.11-0.59) H 11/19/24 19:06 Eos # (Auto) 0.14 K/uL (0.00-0.50) 11/19/24 19:06 Baso # (Auto) 0.02 K/uL (0.00-0.20) 11/19/24 19:06 Immature Gran # (Auto) 0.03 K/uL (0.01-0.20) 11/19/24 19:06 PT 22.8 Seconds (9.0-12.0) H 11/19/24 19:06 INR 2.3 (0.9-1.1) H 11/19/24 19:06 Sodium 138 mmol/L (136-145) 11/19/24 19:06 Potassium 3.7 mmol/L (3.5-5.1) 11/19/24 19:06 Chloride 104 mmol/L (98-107) 11/19/24 19:06 Carbon Dioxide 21 mmol/L (21-32) 11/19/24 19:06 Anion Gap 13 (3-11) H 11/19/24 19:06 BUN 15 mg/dl (6-23) 11/19/24 19:06 Creatinine 1.25 mg/dl (0.6-1.2) H 11/19/24 19:06 Est Cr Clr Drug Dosing Not Reportable 11/19/24 19:06 eGFR 49.34 11/19/24 19:06 BUN/Creatinine Ratio 12.0 (10-20) 11/19/24 19:06 Glucose 94 mg/dl (70-99(Fasting)) 11/19/24 19:06 Calcium 9.5 mg/dl (8.6-10.3) 11/19/24 19:06 Total Bilirubin 0.4 mg/dl (0.2-1.0) 11/19/24 19:06 AST 21 U/L (13-39) 11/19/24 19:06 ALT 20 U/L (7-52) 11/19/24 19:06 Alkaline Phosphatase 72 U/L (34-104) 11/19/24 19:06 Troponin I High Sens 10.0 pg/ml (0-14) 11/19/24 19:06 Total Protein 7.8 gm/dl (6.0-8.3) 11/19/24 19:06 Albumin 3.9 gm/dl (3.4-5.0) 11/19/24 19:06 Globulin 3.9 gm/dl (2.5-4.0) 11/19/24 19:06 Albumin/Globulin Ratio 1.0 (0.9-2) 11/19/24 19:06 Lipase 48 U/L (11-82) 11/19/24 19:06 Impressions Chest X-Ray 11/19/24 19:16 EXAM: Radiograph of the Chest 1 View INDICATION: Left chest pain. Vomiting after food impaction. TECHNIQUE: Frontal view of the chest. COMPARISON: No relevant prior studies available. FINDINGS: Lungs and pleural spaces: Minimal basilar scarring or atelectasis. No consolidation or pulmonary edema. No pleural effusion or pneumothorax. Heart: Stable prominent cardiac shadow. Mediastinum: No mediastinal gas noted. Small to moderate hiatal hernia unchanged. Normal aortic contour. Bones/joints: Degenerative changes noted throughout the spine and both shoulders. No lytic or blastic lesions noted. Soft tissues: No abnormality noted. No radiopaque foreign body noted. Upper abdomen: No abnormality noted. IMPRESSION: Stable chronic changes. No acute disease. ACT 112: N/A Electronically signed by Katrina Rich 11-19-2024 7:[address] 11/19/24 19:57 Exam(s): CT CHEST With Contrast Oral - High Density Amt: 30 ML GASTROVIEW, IV Amt: 90 ML OPTIRAY 320 EXAM: CT Chest With Intravenous Contrast CLINICAL HISTORY: vomiting blood, left chest pain. oral contrast. TECHNIQUE: Axial computed tomography images of the chest with intravenous contrast. CTDI is 37.24 mGy and DLP is 1263.29 mGy-cm. Automated exposure control was utilized for the study. A dose lowering technique was utilized adhering to the principles of ALARA. CONTRAST: Patient received 30 ML GASTROVIEW of Oral - High Density and 90 ML OPTIRAY 320 of IV contrast COMPARISON: No relevant prior studies available. FINDINGS: Artifacts: Scatter artifact likely related to patient's body habitus. Limitations: There is respiratory artifact, which degrades image quality on multiple image slices. Lungs: The lungs are well aerated with minimal subsegmental changes adjacent to the small volume left pleural effusion. No mass. No consolidation. Pleural space: Small volume left pleural effusion layering posteriorly in the subpulmonic space. No loculation. Heart: Unremarkable. No cardiomegaly. No significant pericardial effusion. No significant coronary artery calcifications. Mediastinum: Sliding hiatal hernia containing the fundus of the stomach. There is minimal oral contrast noted in the mid to distal esophagus. No evidence for obstruction. Concentric mucosal prominence throughout the thoracic esophagus is new from the previous examination. No definite leakage or pneumomediastinum. There is relative localized mediastinal fat stranding involving the lateral aspect of the distal esophagus which extends laterally in a horizontal plane and circumferentially noted surrounding the esophagus. Bones/joints: Surgical hardware involving the proximal right humerus. Severe degenerative changes involving the right shoulder. Moderately severe degenerative changes involving the left shoulder. No definite acute osseous abnormality, accounting for limitations with respiratory artifact. Soft tissues: Unremarkable. Vasculature: Unremarkable. No thoracic aortic aneurysm. Lymph nodes: Unremarkable. No enlarged lymph nodes. IMPRESSION: 1. Sliding hiatal hernia containing the fundus of the stomach. There is minimal oral contrast noted in the mid to distal esophagus. No evidence for obstruction. Concentric mucosal prominence throughout the thoracic esophagus is new from the previous examination. No definite leakage or pneumomediastinum. The appearance suggests developing hypertrophic changes or inflammatory infectious esophagitis. 2. There is relative localized mediastinal fat stranding involving the lateral aspect of the distal esophagus which extends laterally in a horizontal plane. The pattern of involvement is not typical for inflammatory changes from the esophagus. This may represent atypical changes from the suspected esophagitis or may represent nonspecific mediastinitis. No abscess. 3. Small volume left pleural effusion layering posteriorly in the subpulmonic space. No loculation. Presumed adjacent subsegmental atelectasis. Electronically signed by: Erik Lomeli MD 11/19/24 20:58 PM ECG Additional Comments: ECG. Sinus rhythm with marked sinus rhythm with rate of 88. T wave abnormality anterolateral leads. QTc 508 Code Status & VTE Plan VTE Prophylaxis Plan VTE Prophylaxis will be ordered: Yes
[2024-11-20 02:42] LABS: Appearance Urine Clear (Clear); Bilirubin Urine Negative (Negative); Blood Urine Negative (Negative); Color Urine Yellow; Glucose Urine UA Negative (Negative); Ketones Urine Negative (Negative); Leukocyte Esterase Urine Negative (Negative); Nitrite Urine Negative (Negative); Protein Urine Negative (Negative); Specific Gravity Urine > 1.045 (1.000-1.030); Urobilinogen Urine Negative (Negative); pH Urine 5.5 (4.5-7.5)
[2024-11-20 05:47] LABS: Basophils # (auto) 0.03 K/uL (0.00-0.20); Basophils % (auto) 0.3 %; Eosinophils # (auto) 0.02 K/uL (0.00-0.50); Eosinophils % (auto) 0.2 %; Hematocrit (blood only) 36.8 % (37.0-47.0); Hemoglobin 12.1 g/dl (12.0-16.0); Immature Granulocytes # (auto) 0.03 K/uL (0.01-0.20); Immature Granulocytes % (auto) 0.3 %; Lymphocytes # (auto) 0.93 K/uL (1.20-3.40); Mean Corpuscular Hemoglobin 28.6 pg (25.0-34.0); Mean Corpuscular Hgb Conc 32.9 g/dL (32.0-36.0); Mean Platelet Volume 9.6 fL (9.4-12.4); Monocytes # (auto) 0.77 K/uL (0.11-0.59); Monocytes % (auto) 8.3 %; Neutrophils # (auto) 7.54 K/uL (1.40-6.50); Neutrophils % (auto) 80.9 %; Platelet Count 259 K/uL (130-400); RDW Coefficient of Variation 14.9 % (11.5-14.5); RDW Standard Deviation 47.7 fL (36.4-46.3); Red Blood Count 4.23 M/uL (4.20-5.40); White Blood Count 9.32 K/ul (4.8-10.8)
[2024-11-20 06:12] LABS: INR 2.1 (0.9-1.1); Prothrombin Time 21.3 Seconds (9.0-12.0)
[2024-11-20 06:15] LABS: BUN Creatinine Ratio 15.4 (10-20); Calcium 8.8 mg/dl (8.6-10.3); Creatinine Clr Calc Pharmacy 69.4 ml/min; Magnesium 1.4 mg/dl (1.7-2.4); Potassium 4.6 mmol/L (3.5-5.1); Troponin I High Sensitivity 10.3 pg/ml (0-14)
[2024-11-20 07:39] LABS: Estimated Average Glucose 120 mg/dl; Hemoglobin A1C 5.8 % (4.5-5.6)
--- NOTE | 2024-11-20 09:50 | Electrocardiogram Report ---
Test Reason : Blood Pressure : */* mmHG Vent. Rate : 88 BPM Atrial Rate : 88 BPM P-R Int : 136 ms QRS Dur : 86 ms QT Int : 420 ms P-R-T Axes : 65 58 -14 degrees QTcB Int : 508 ms Sinus rhythm with marked sinus arrhythmia T wave abnormality, consider anterolateral ischemia Abnormal ECG When compared with ECG of 04-Jan-2021 07:44, Premature ventricular complexes are no longer Present T wave inversion now evident in Anterior leads QT has lengthened Confirmed by Kathy Orr (Masha) on 11/20/2024 9:50:07 AM Referred By: REFERRED SELF Confirmed By: Kathy Orr
--- NOTE | 2024-11-20 09:51 | Electrocardiogram Report ---
Test Reason : Blood Pressure : */* mmHG Vent. Rate : 94 BPM Atrial Rate : 94 BPM P-R Int : 148 ms QRS Dur : 84 ms QT Int : 356 ms P-R-T Axes : 65 56 47 degrees QTcB Int : 445 ms Normal sinus rhythm Nondiagnostic inferior Q waves Abnormal ECG When compared with ECG of 19-Nov-2024 19:01, (unconfirmed) T wave inversion no longer evident in Anterior leads QT has shortened Confirmed by Kathy Orr ([place]) on 11/20/2024 9:50:54 AM Referred By: REFERRED SELF Confirmed By: Kathy Orr
--- NOTE | 2024-11-20 10:20 | Gastrointestinal Consultation ---
Date of Consultation November 20, 2024 Assessment & Plan (1) Food impaction of esophagus: Pleasant lady with dysphagia and evident food impaction yesterday that resolved with vomiting. By history and CT she had significant irritation and or small tear in esophagus with vomiting but no perforation. She does need EGD but this should not be done now as I would prefer not to make a superficial tear into a through and through tear. Besides, she is on anticoagulation that would need reversal. She does need to have this done and this was reinforced to her. She says she will get it taken care of in the outpatient setting. I would send her out on PPI as famotidine is not good enough for reflux. I did strongly recommend that she consider colonoscopy but she says she will never have one of those done. History of Present Illness Reason for Consultation: food impaction Attending Physician: Terra Nicolas MD History of Present Illness 59 year old female with a history of difficulty swallowing with two prior esophageal dilatations (last about 6 years ago) who was eating a hoagie yesterday and it got stuck. She drank water to push it through and vomited the water and the food. She vomited a second time and there was blood. This was followed by the development of chest pain so she went to ED. At ED she had a CT scan that showed "inflamed distal esophagus" and a left sided pleural effusion. CT surgery at [facility] was contacted and felt she could be observed with possibly getting a barium study to evaluate for perforation. Currently she feels fine but her ribs are sore from vomiting. She says the difficulty swallowing happens about two times per week and has been getting worse. She has not followed up with GI about this. She has not had nor will she get a colonoscopy. On last EGD done here she had "severe esophagitis". She says she takes prilosec for this but admit meds show only famotidine. She is also on warfarin. She has seen [facility] in the past. Allergies Allergy/AdvReac Type Severity Reaction Status Date / Time No Known Allergies Allergy Verified 04/05/24 11:58 Home Medications Medication Instructions Recorded Confirmed Type warfarin 5 mg tablet 5 mg PO DAILY@1600 #30 tabs 02/14/20 11/19/24 Rx acetaminophen 325 mg tablet 325 mg PO QID PRN Pain 07/29/23 11/19/24 History (Tylenol) albuterol sulfate 90 mcg/actuation 2 puff inhalation Q6H PRN SOB 07/29/23 11/19/24 History aerosol inhaler bupropion HCl 150 mg tablet,12 hr 150 mg PO DAILY 07/29/23 11/19/24 History sustained-release (Wellbutrin SR) cholecalciferol (vitamin D3) 50 50 mcg PO DAILY 07/29/23 11/19/24 History mcg (2,000 unit) capsule mecobalamin (vitamin B12) 500 mcg 500 mcg PO QAM 07/29/23 11/19/24 History chewable tablet metformin 850 mg tablet 850 mg PO BID 07/29/23 11/19/24 History naltrexone 50 mg tablet 25 mg PO BID 07/29/23 11/19/24 History rosuvastatin 10 mg tablet 10 mg PO DAILY 07/29/23 11/19/24 History duloxetine 60 mg capsule,delayed 60 mg PO QAM 11/19/24 11/19/24 History release famotidine 20 mg tablet 20 mg PO QAM 11/19/24 11/19/24 History hydroxyzine pamoate 25 mg capsule 25 - 50 mg PO HS 11/19/24 11/19/24 History lisinopril 40 mg tablet 40 mg PO DAILY 11/19/24 11/19/24 History Patient History Medical History Sprain of medial collateral ligament of knee Snoring Knee pain Dry eyes Diarrhea Dysphagia Osteoarthritis Kidney stones Anxiety no meds Surgical History History of ERCP Status post wrist surgery right History of repair of left rotator cuff History of arthroscopy of left knee History of lithotripsy History of umbilical hernia repair History of cholecystectomy History of esophagogastroduodenoscopy (EGD) History of tooth extraction Family History Mother Family history of reaction to anesthesia nausea/vomiting, "difficulty waking up" Hypertension Denies family history of Clotting disorder Social History Smoking Status: Never smoker Second Hand Exposure: No; Do You Dip or Chew Tobacco: No; Hx Alcohol Use: No Hx Substance Use: No Preferred Language: Swedish Communication Ability: Effective Php Web Developer Required: No Beliefs That Will Affect Care: None marital status: Single Current Living Situation: Alone Current Living Situation Comment: Pt has her own place, but stays with her mother often current occupational status: employed current occupation: [employer] Feels Safe at Home: Yes during the past year weight has: remained stable Assistive Devices: CPAP Review of Systems Review of Systems: All systems reviewed & are unremarkable except as noted in HPI & below Physical Exam Physical Exam: Pleasant, in no distress Constitutional: + morbidly obese Neck: trachea midline, no thyromegaly Respiratory: normal respiratory effort, lungs clear to auscultation Cardiovascular: RRR, no murmur, no edema Gastrointestinal (Abdomen): normal bowel sounds, soft, nontender, no hepatosplenomegaly Results & Data Vital Signs (Past 12 Hours) Vital Signs Temp Pulse Pulse Resp BP BP BP 11/20/24 09:44 95 H 11/20/24 07:47 11/20/24 07:22 36.6 C 92 H 20 154/82 H 11/20/24 03:08 96 H 11/20/24 01:44 36.8 C 97 H 18 163/90 H 11/20/24 01:42 97 H 25 H 11/20/24 01:27 36.8 C 102 H 18 163/90 H 11/20/24 01:00 97 H 27 H 154/78 H 11/19/24 23:12 102 H 22 11/19/24 23:00 102 H 22 159/87 H 11/19/24 22:30 101 H 21 159/87 H Pulse Ox O2 Del Method 11/20/24 09:44 11/20/24 07:47 Room Air 11/20/24 07:22 97 Room Air 11/20/24 03:08 11/20/24 01:44 96 Room Air 11/20/24 01:42 97 Room Air 11/20/24 01:27 96 Room Air 11/20/24 01:00 97 Room Air 11/19/24 23:12 97 Room Air 11/19/24 23:00 97 Room Air 11/19/24 22:30 96 Laboratory Results 11/20/24 11/20/24 11/20/24 Range/Units 07:53 05:45 05:26 WBC (4.8-10.8) K/ul RBC (4.20-5.40) M/uL Hgb (12.0-16.0) g/dl Hct (37.0-47.0) % MCV (80.0-100.0) fL MCH (25.0-34.0) pg MCHC (32.0-36.0) g/dL RDW Std Deviation (36.4-46.3) fL RDW Coeff of Cher (11.5-14.5) % Plt Count (130-400) K/uL MPV (9.4-12.4) fL Immature Gran % (Auto) % Neut % (Auto) % Lymph % (Auto) % Garza % (Auto) % Eos % (Auto) % Baso % (Auto) % Neut # (Auto) (1.40-6.50) K/uL Lymph # (Auto) (1.20-3.40) K/uL Garza # (Auto) (0.11-0.59) K/uL Eos # (Auto) (0.00-0.50) K/uL Baso # (Auto) (0.00-0.20) K/uL Immature Gran # (Auto) (0.01-0.20) K/uL PT (9.0-12.0) Seconds INR (0.9-1.1) Sodium (136-145) mmol/L Potassium (3.5-5.1) mmol/L Chloride (98-107) mmol/L Carbon Dioxide (21-32) mmol/L Anion Gap (3-11) BUN (6-23) mg/dl Creatinine (0.6-1.2) mg/dl Est Cr Clr Drug Dosing eGFR BUN/Creatinine Ratio (10-20) Glucose (70-99(Fasting)) mg/dl POC Glucose 113 H 115 H (70-99) mg/dl Estimat Average Glucose 120 mg/dl Hemoglobin A1c 5.8 H (4.5-5.6) % Calcium (8.6-10.3) mg/dl Magnesium (1.7-2.4) mg/dl Total Bilirubin (0.2-1.0) mg/dl AST (13-39) U/L ALT (7-52) U/L Alkaline Phosphatase (34-104) U/L Troponin I High Sens (0-14) pg/ml Total Protein (6.0-8.3) gm/dl Albumin (3.4-5.0) gm/dl Globulin (2.5-4.0) gm/dl Albumin/Globulin Ratio (0.9-2) Lipase (11-82) U/L Urine Color Urine Appearance (Clear) Urine pH (4.5-7.5) Ur Specific [place] (1.000-1.030) Urine Protein (Negative) Urine Glucose (UA) (Negative) Urine Ketones (Negative) Urine Blood (Negative) Urine Nitrite (Negative) Urine Bilirubin (Negative) Urine Urobilinogen (Negative) Ur Leukocyte Esterase (Negative) Urine Comment 11/20/24 11/20/24 11/20/24 Range/Units 05:25 02:30 01:32 WBC 9.32 (4.8-10.8) K/ul RBC 4.23 (4.20-5.40) M/uL Hgb 12.1 (12.0-16.0) g/dl Hct 36.8 L (37.0-47.0) % MCV 87.0 (80.0-100.0) fL MCH 28.6 (25.0-34.0) pg MCHC 32.9 (32.0-36.0) g/dL RDW Std Deviation 47.7 H (36.4-46.3) fL RDW Coeff of Cher 14.9 H (11.5-14.5) % Plt Count 259 (130-400) K/uL MPV 9.6 (9.4-12.4) fL Immature Gran % (Auto) 0.3 % Neut % (Auto) 80.9 % Lymph % (Auto) 10.0 % Garza % (Auto) 8.3 % Eos % (Auto) 0.2 % Baso % (Auto) 0.3 % Neut # (Auto) 7.54 H (1.40-6.50) K/uL Lymph # (Auto) 0.93 L (1.20-3.40) K/uL Garza # (Auto) 0.77 H (0.11-0.59) K/uL Eos # (Auto) 0.02 (0.00-0.50) K/uL Baso # (Auto) 0.03 (0.00-0.20) K/uL Immature Gran # (Auto) 0.03 (0.01-0.20) K/uL PT 21.3 H (9.0-12.0) Seconds INR 2.1 H (0.9-1.1) Sodium 138 (136-145) mmol/L Potassium 4.6 D (3.5-5.1) mmol/L Chloride 107 (98-107) mmol/L Carbon Dioxide 23 (21-32) mmol/L Anion Gap 8 (3-11) BUN 18 (6-23) mg/dl Creatinine 1.17 (0.6-1.2) mg/dl Est Cr Clr Drug Dosing 69.4 eGFR 53.42 BUN/Creatinine Ratio 15.4 (10-20) Glucose 116 H (70-99(Fasting)) mg/dl POC Glucose 112 H (70-99) mg/dl Estimat Average Glucose mg/dl Hemoglobin A1c (4.5-5.6) % Calcium 8.8 (8.6-10.3) mg/dl Magnesium 1.4 L (1.7-2.4) mg/dl Total Bilirubin (0.2-1.0) mg/dl AST (13-39) U/L ALT (7-52) U/L Alkaline Phosphatase (34-104) U/L Troponin I High Sens 10.3 (0-14) pg/ml Total Protein (6.0-8.3) gm/dl Albumin (3.4-5.0) gm/dl Globulin (2.5-4.0) gm/dl Albumin/Globulin Ratio (0.9-2) Lipase (11-82) U/L Urine Color Yellow Urine Appearance Clear (Clear) Urine pH 5.5 (4.5-7.5) Ur Specific [place] > 1.045 H (1.000-1.030) Urine Protein Negative (Negative) Urine Glucose (UA) Negative (Negative) Urine Ketones Negative (Negative) Urine Blood Negative (Negative) Urine Nitrite Negative (Negative) Urine Bilirubin Negative (Negative) Urine Urobilinogen Negative (Negative) Ur Leukocyte Esterase Negative (Negative) Urine Comment 11/19/24 Range/Units 19:06 WBC 7.56 (4.8-10.8) K/ul RBC 4.72 (4.20-5.40) M/uL Hgb 13.4 (12.0-16.0) g/dl Hct 40.8 (37.0-47.0) % MCV 86.4 (80.0-100.0) fL MCH 28.4 (25.0-34.0) pg MCHC 32.8 (32.0-36.0) g/dL RDW Std Deviation 46.5 H (36.4-46.3) fL RDW Coeff of Cher 14.8 H (11.5-14.5) % Plt Count 292 (130-400) K/uL MPV 9.5 (9.4-12.4) fL Immature Gran % (Auto) 0.4 % Neut % (Auto) 75.3 % Lymph % (Auto) 14.2 % Garza % (Auto) 7.9 % Eos % (Auto) 1.9 % Baso % (Auto) 0.3 % Neut # (Auto) 5.70 (1.40-6.50) K/uL Lymph # (Auto) 1.07 L (1.20-3.40) K/uL Garza # (Auto) 0.60 H (0.11-0.59) K/uL Eos # (Auto) 0.14 (0.00-0.50) K/uL Baso # (Auto) 0.02 (0.00-0.20) K/uL Immature Gran # (Auto) 0.03 (0.01-0.20) K/uL PT 22.8 H (9.0-12.0) Seconds INR 2.3 H (0.9-1.1) Sodium 138 (136-145) mmol/L Potassium 3.7 (3.5-5.1) mmol/L Chloride 104 (98-107) mmol/L Carbon Dioxide 21 (21-32) mmol/L Anion Gap 13 H (3-11) BUN 15 (6-23) mg/dl Creatinine 1.25 H (0.6-1.2) mg/dl Est Cr Clr Drug Dosing Not Reportable eGFR 49.34 BUN/Creatinine Ratio 12.0 (10-20) Glucose 94 (70-99(Fasting)) mg/dl POC Glucose (70-99) mg/dl Estimat Average Glucose mg/dl Hemoglobin A1c (4.5-5.6) % Calcium 9.5 (8.6-10.3) mg/dl Magnesium (1.7-2.4) mg/dl Total Bilirubin 0.4 (0.2-1.0) mg/dl AST 21 (13-39) U/L ALT 20 (7-52) U/L Alkaline Phosphatase 72 (34-104) U/L Troponin I High Sens 10.0 (0-14) pg/ml Total Protein 7.8 (6.0-8.3) gm/dl Albumin 3.9 (3.4-5.0) gm/dl Globulin 3.9 (2.5-4.0) gm/dl Albumin/Globulin Ratio 1.0 (0.9-2) Lipase 48 (11-82) U/L Urine Color Urine Appearance (Clear) Urine pH (4.5-7.5) Ur Specific [place] (1.000-1.030) Urine Protein (Negative) Urine Glucose (UA) (Negative) Urine Ketones (Negative) Urine Blood (Negative) Urine Nitrite (Negative) Urine Bilirubin (Negative) Urine Urobilinogen (Negative) Ur Leukocyte Esterase (Negative) Urine Comment Diagnostic Findings Chest X-Ray 11/19/24 19:16 EXAM: Radiograph of the Chest 1 View INDICATION: Left chest pain. Vomiting after food impaction. TECHNIQUE: Frontal view of the chest. COMPARISON: No relevant prior studies available. FINDINGS: Lungs and pleural spaces: Minimal basilar scarring or atelectasis. No consolidation or pulmonary edema. No pleural effusion or pneumothorax. Heart: Stable prominent cardiac shadow. Mediastinum: No mediastinal gas noted. Small to moderate hiatal hernia unchanged. Normal aortic contour. Bones/joints: Degenerative changes noted throughout the spine and both shoulders. No lytic or blastic lesions noted. Soft tissues: No abnormality noted. No radiopaque foreign body noted. Upper abdomen: No abnormality noted. IMPRESSION: Stable chronic changes. No acute disease. ACT 112: N/A Electronically signed by Katrina Rich 11-19-2024 7:[address] 11/19/24 19:57 Exam(s): CT CHEST With Contrast Oral - High Density Amt: 30 ML GASTROVIEW, IV Amt: 90 ML OPTIRAY 320 EXAM: CT Chest With Intravenous Contrast CLINICAL HISTORY: vomiting blood, left chest pain. oral contrast. TECHNIQUE: Axial computed tomography images of the chest with intravenous contrast. CTDI is 37.24 mGy and DLP is 1263.29 mGy-cm. Automated exposure control was utilized for the study. A dose lowering technique was utilized adhering to the principles of ALARA. CONTRAST: Patient received 30 ML GASTROVIEW of Oral - High Density and 90 ML OPTIRAY 320 of IV contrast COMPARISON: No relevant prior studies available. FINDINGS: Artifacts: Scatter artifact likely related to patient's body habitus. Limitations: There is respiratory artifact, which degrades image quality on multiple image slices. Lungs: The lungs are well aerated with minimal subsegmental changes adjacent to the small volume left pleural effusion. No mass. No consolidation. Pleural space: Small volume left pleural effusion layering posteriorly in the subpulmonic space. No loculation. Heart: Unremarkable. No cardiomegaly. No significant pericardial effusion. No significant coronary artery calcifications. Mediastinum: Sliding hiatal hernia containing the fundus of the stomach. There is minimal oral contrast noted in the mid to distal esophagus. No evidence for obstruction. Concentric mucosal prominence throughout the thoracic esophagus is new from the previous examination. No definite leakage or pneumomediastinum. There is relative localized mediastinal fat stranding involving the lateral aspect of the distal esophagus which extends laterally in a horizontal plane and circumferentially noted surrounding the esophagus. Bones/joints: Surgical hardware involving the proximal right humerus. Severe degenerative changes involving the right shoulder. Moderately severe degenerative changes involving the left shoulder. No definite acute osseous abnormality, accounting for limitations with respiratory artifact. Soft tissues: Unremarkable. Vasculature: Unremarkable. No thoracic aortic aneurysm. Lymph nodes: Unremarkable. No enlarged lymph nodes. IMPRESSION: 1. Sliding hiatal hernia containing the fundus of the stomach. There is minimal oral contrast noted in the mid to distal esophagus. No evidence for obstruction. Concentric mucosal prominence throughout the thoracic esophagus is new from the previous examination. No definite leakage or pneumomediastinum. The appearance suggests developing hypertrophic changes or inflammatory infectious esophagitis. 2. There is relative localized mediastinal fat stranding involving the lateral aspect of the distal esophagus which extends laterally in a horizontal plane. The pattern of involvement is not typical for inflammatory changes from the esophagus. This may represent atypical changes from the suspected esophagitis or may represent nonspecific mediastinitis. No abscess. 3. Small volume left pleural effusion layering posteriorly in the subpulmonic space. No loculation. Presumed adjacent subsegmental atelectasis. Electronically signed by: Erik Lomeli MD 11/19/24 20:58 PM
--- NOTE | 2024-11-20 14:22 | Hospitalist Progress Note ---
Date of Service November 20, 2024 Assessment & Plan (1) Food impaction of esophagus: Plan: 59-year-old female with past medical history significant for hypercholesteremia, prediabetes, CKD stage III, recurrent pulmonary embolism, hypertension, chronic diastolic CHF, venous insufficiency, venous stasis dermatitis, morbid obesity, chronic pain, iron deficiency anemia, adjustment disorder, history of esophageal stricture status post dilatation several years ago comes because of food impaction of esophagus and hematemesis. Patient today evening was eating hoagie which got stuck deep in her throat. She was able to vomit liquid at first then she had another episode of vomiting with soft blood tingeing as well as clumps of blood and she thinks she vomited all the food. Patient is on Coumadin but was held for last week for antibiotics for sores on her left lower extremities. She says the wounds are healed up. She completed antibiotic yesterday. And after this episode of vomiting patient felt left sided chest pain, abdominal pain, headache , dizziness and came to the ER. In the ER CT scan was done with IV and oral contrast which showed no definite leakage or pneumomediastinum but showed inflammatory/infectious esophagitis and also small volume left pleural effusion. ER talked with CT surgery at [facility] Dr. Silver and was recommended barium swallow test. To call back CT surgery if barium swallow shows anything or if anything changes. No antibiotics recommended at this time. Patient received pain medication. Currently feeling better. Headache improved. Abdominal pain and chest pain improved. Has mild some epigastric discomfort. Earlier had dizziness that improved. No more episodes of vomiting. No blurred vision. No runny nose no sore throat. No cough. No fevers. No shortness of breath. Currently no nausea. Normal bowel and bladder movements. Resting comfortably and hemodynamically stable. Sliding hiatal hernia with esophagitis Food impaction of esophagus Hx of oesophageal stricture and status post dilatation Status post vomiting and hematemesis with relief of impaction Hemoglobin stable at 13.4 .hemodynamics okay No more episodes of vomiting N.p.o., IV fluids, Protonix drip CT of the chest with oral contrast showed sliding hiatal hernia containing the fundus of the stomach. Oral contrast noted in the mid to distal esophagus without any evidence of obstruction. Concentric mucosal prominence throughout the thoracic esophagus is new from the previous examination. No definite leakage or pneumomediastinum. The appearance suggestive of developing hypertrophic changes or inflammatory esophagitis She has been feeling much better since admission Appreciate GI input and recommendationnot for any immediate EGD and the patient can be discharged Started on clears orally and will be advanced as tolerated Continue intravenous PPI and changed to oral from tomorrow Likely discharge tomorrow Obstructive sleep apnea CPAP nightly Diabetes Sliding scale Will monitor HbA1c levels HESHAM on CKD stage III Baseline creatinine 1-1.1 Current creatinine 1.2 Holding lisinopril Follow repeat labs HTN Holding lisinopril iv labetalol prn Remains borderline elevated at 143/83 Prolonged QTc Avoid QT prolonging drugs Follow repeat EKG Decreased in QT prolongation Chest pain Mostly from above Troponin okay Will follow repeat EKG and troponins No cardiac symptoms Chronic diastolic CHF Getting fluids Monitor for volume overload Hyperlipidemia Hold statin for now ,restart as soon as possible History of PE Hold Coumadin for now Restart when okay with GI Depression Holding bupropion for now DVT prophylaxis SCDs for now Disposition Med/telemetry Full code. Admission and Anticipated Discharge Date Admission Date: November 19, 2024 Subjective 11/20/2024 The patient was seen and examined in medical telemetry unit She has been feeling much better and denies any significant epigastric pain and does not have any nausea and/or vomiting Review of Systems Review of Systems: All systems reviewed and are unremarkable except as noted below Physical Exam Physical Exam: Sitting on a chair without any acute distress Constitutional: well developed, well nourished, + ill appearing and + obese ENMT: external ear and nose normal, oropharynx normal Respiratory: no respiratory distress Auscultation: lungs clear to auscultation bilaterally Cardiovascular: Rate/Rhythm: regular rate and regular rhythm; not tachycardic Heart Sounds: normal S1 and normal S2; no murmur Extremities: + edema ( trace edema bilaterally) Gastrointestinal (Abdomen): Inspection/Auscultation: + abdomen distended and normal bowel sounds Percussion/Palpation: abdomen soft; abdomen nontender Musculoskeletal: No acute arthritis involving any of the joint Neurologic: normal touch/pain/proprioception and moves all extremities; no focal motor deficits Psychiatric: A+Ox3, euthymic affect Lymphatic: no cervical or axillary lymphadenopathy Results & Data Results & Data Vital Signs (Past 12 Hours) Vital Signs Temp Pulse Pulse Resp BP Pulse Ox O2 Del Method 11/20/24 11:31 36.8 C 93 H 20 143/83 H 96 Room Air 11/20/24 09:44 95 H 11/20/24 07:47 Room Air 11/20/24 07:22 36.6 C 92 H 20 154/82 H 97 Room Air 11/20/24 03:08 96 H Laboratory Results Short CBC 11/19/24 11/20/24 Range/Units 19:06 05:25 WBC 7.56 9.32 (4.8-10.8) K/ul Hgb 13.4 12.1 (12.0-16.0) g/dl Hct 40.8 36.8 L (37.0-47.0) % Plt Count 292 259 (130-400) K/uL BMP 11/19/24 11/20/24 19:06 05:25 Sodium 138 138 Potassium 3.7 4.6 D Chloride 104 107 Carbon Dioxide 21 23 BUN 15 18 Creatinine 1.25 H 1.17 Glucose 94 116 H Calcium 9.5 8.8 Liver Function 11/19/24 Range/Units 19:06 Total Bilirubin 0.4 (0.2-1.0) mg/dl AST 21 (13-39) U/L ALT 20 (7-52) U/L Alkaline Phosphatase 72 (34-104) U/L Albumin 3.9 (3.4-5.0) gm/dl Urine 11/20/24 Range/Units 02:30 Urine Color Yellow Urine Appearance Clear (Clear) Urine pH 5.5 (4.5-7.5) Ur Specific [place] > 1.045 H (1.000-1.030) Urine Protein Negative (Negative) Urine Glucose (UA) Negative (Negative) Medications Administered Current Inpatient Medications Albuterol (Albuterol Hfa 8 Gm Inhaler) 2 puffs INH Q6H PRN PRN Reason: Shortness Of Breath Stop: 12/20/24 01:26 Dextrose (Dextrose 50% 50 Ml Syringe) 25 - 50 ml IV UD PRN; Protocol PRN Reason: Hypoglycemia Protocol Stop: 12/20/24 01:26 Glucagon (Glucagon For Inj 1 Mg Vial) 1 mg SQ UD PRN; Protocol PRN Reason: Hypoglycemia Protocol Stop: 12/20/24 01:26 Glucose (Glucose 40% Gel 15 Gm Tube) 15 - 30 gm PO UD PRN; Protocol PRN Reason: Hypoglycemia Protocol Stop: 12/20/24 01:26 Glucose (Glucose 10 Tab/Tube) 4 - 8 tab PO UD PRN; Protocol PRN Reason: Hypoglycemia Protocol Stop: 12/20/24 01:26 Hydromorphone HCl (Hydromorphone Inj 0.5 Mg/0.5 Ml Syr) 0.25 mg IV Q3H PRN PRN Reason: Mod-Sev Pain (Scale 4-10) Stop: 12/04/24 01:26 Pantoprazole Sodium 40 mg/ (Dextrose) 100 mls @ 20 mls/hr IV Q5H GEORGE Stop: 12/20/24 01:26 Last Admin: 11/20/24 11:52 Dose: 8 mg/hr, 20 mls/hr Sodium Chloride (Nss) 1,000 mls @ 100 mls/hr IV .Q10H GEORGE Stop: 11/23/24 01:26 Last Admin: 11/20/24 13:00 Dose: 100 mls/hr Promethazine HCl (Phenergan) 12.5 mg in 50.5 mls @ 202 mls/hr IV Q6H PRN PRN Reason: Nausea And Vomiting Stop: 12/20/24 09:05 Insulin Aspart (Insulin Aspart Per Unit Charge) 0 units SC Q6 GEORGE Stop: 12/20/24 05:59 Last Admin: 11/20/24 12:51 Dose: Not Given Labetalol HCl (Labetalol Hcl Iv 5 Mg/Ml 20ml) 10 mg IV Q4H PRN PRN Reason: Hypertension Stop: 12/20/24 01:26 Miscellaneous (Carbohydrates For Hypoglycemia ) 15 - 30 gm PO UD PRN PRN Reason: Hypoglycemia Protocol Stop: 12/20/24 01:26 Nitroglycerin (Nitroglycerin Sl 0.4 Mg/Tab Tab) 0.4 mg SL Q5M PRN PRN Reason: Chest Pain Stop: 12/20/24 01:26
[2024-11-21 05:47] LABS: Basophils # (auto) 0.02 K/uL (0.00-0.20); Basophils % (auto) 0.4 %; Eosinophils # (auto) 0.21 K/uL (0.00-0.50); Eosinophils % (auto) 4.1 %; Hemoglobin 10.9 g/dl (12.0-16.0); Immature Granulocytes # (auto) 0.01 K/uL (0.01-0.20); Immature Granulocytes % (auto) 0.2 %; Lymphocytes # (auto) 0.91 K/uL (1.20-3.40); Lymphocytes % (auto) 17.8 %; Mean Corpuscular Hemoglobin 28.1 pg (25.0-34.0); Mean Corpuscular Hgb Conc 32.1 g/dL (32.0-36.0); Mean Corpuscular Volume 87.6 fL (80.0-100.0); Mean Platelet Volume 9.6 fL (9.4-12.4); Monocytes # (auto) 0.51 K/uL (0.11-0.59); Neutrophils # (auto) 3.46 K/uL (1.40-6.50); Neutrophils % (auto) 67.5 %; Platelet Count 211 K/uL (130-400); RDW Coefficient of Variation 15.1 % (11.5-14.5); RDW Standard Deviation 48.5 fL (36.4-46.3); Red Blood Count 3.88 M/uL (4.20-5.40); White Blood Count 5.12 K/ul (4.8-10.8)
[2024-11-21 06:05] LABS: BUN Creatinine Ratio 11.6 (10-20); Calcium 8.3 mg/dl (8.6-10.3); Creatinine Clr Calc Pharmacy 85.5 ml/min; Potassium 4.2 mmol/L (3.5-5.1)
[2024-11-21 06:16] LABS: INR 1.8 (0.9-1.1); Prothrombin Time 18.2 Seconds (9.0-12.0)
--- NOTE | 2024-11-21 09:22 | Gastroenterology Progress Note ---
Date of Service November 21, 2024 Assessment & Plan (1) Food impaction of esophagus: Plan: Spontaneously resolved. Imaging did not reveal any significant esophageal perforation or tear. Clinically well asymptomatic. Can advance diet as tolerated. Continue PPI. Should follow-up with GI as an outpatient for repeat endoscopy to further evaluate dysphagia. Admission and Anticipated Discharge Date Admission Date: November 19, 2024 Subjective Denies any chest pain, shortness of breath, abdominal pain Physical Exam Physical Exam: no acute distress No chest wall or neck crepitus Respiratory rate regular Cardiac rhythm regular Abdomen soft nontender Results & Data Results & Data Vital Signs (Past 12 Hours) Vital Signs Temp Pulse Pulse Resp BP Pulse Ox O2 Del Method 11/21/24 07:36 36.5 C 85 22 129/78 98 Room Air 11/21/24 07:20 79 11/21/24 02:41 36.3 C L 85 16 137/84 96 Room Air 11/20/24 23:00 83 11/20/24 21:57 36.8 C 87 18 125/64 94 Room Air Laboratory Results Laboratory Results - last 48 hr 11/19/24 11/20/24 11/20/24 19:06 01:32 02:30 WBC 7.56 RBC 4.72 Hgb 13.4 Hct 40.8 MCV 86.4 MCH 28.4 MCHC 32.8 RDW Std Deviation 46.5 H RDW Coeff of Cher 14.8 H Plt Count 292 MPV 9.5 Immature Gran % (Auto) 0.4 Neut % (Auto) 75.3 Lymph % (Auto) 14.2 [place] % (Auto) 7.9 Eos % (Auto) 1.9 Baso % (Auto) 0.3 Neut # (Auto) 5.70 Lymph # (Auto) 1.07 L [place] # (Auto) 0.60 H Eos # (Auto) 0.14 Baso # (Auto) 0.02 Immature Gran # (Auto) 0.03 PT 22.8 H INR 2.3 H Sodium 138 Potassium 3.7 Chloride 104 Carbon Dioxide 21 Anion Gap 13 H BUN 15 Creatinine 1.25 H Est Cr Clr Drug Dosing Not Reportable eGFR 49.34 BUN/Creatinine Ratio 12.0 Glucose 94 POC Glucose 112 H Estimat Average Glucose Hemoglobin A1c Calcium 9.5 Magnesium Total Bilirubin 0.4 AST 21 ALT 20 Alkaline Phosphatase 72 Troponin I High Sens 10.0 Total Protein 7.8 Albumin 3.9 Globulin 3.9 Albumin/Globulin Ratio 1.0 Lipase 48 Urine Color Yellow Urine Appearance Clear Urine pH 5.5 Ur Specific [place] > 1.045 H Urine Protein Negative Urine Glucose (UA) Negative Urine Ketones Negative Urine Blood Negative Urine Nitrite Negative Urine Bilirubin Negative Urine Urobilinogen Negative Ur Leukocyte Esterase Negative Urine Comment 11/20/24 11/20/24 11/20/24 05:25 05:26 05:45 WBC 9.32 RBC 4.23 Hgb 12.1 Hct 36.8 L MCV 87.0 MCH 28.6 MCHC 32.9 RDW Std Deviation 47.7 H RDW Coeff of Cher 14.9 H Plt Count 259 MPV 9.6 Immature Gran % (Auto) 0.3 Neut % (Auto) 80.9 Lymph % (Auto) 10.0 [place] % (Auto) 8.3 Eos % (Auto) 0.2 Baso % (Auto) 0.3 Neut # (Auto) 7.54 H Lymph # (Auto) 0.93 L [place] # (Auto) 0.77 H Eos # (Auto) 0.02 Baso # (Auto) 0.03 Immature Gran # (Auto) 0.03 PT 21.3 H INR 2.1 H Sodium 138 Potassium 4.6 D Chloride 107 Carbon Dioxide 23 Anion Gap 8 BUN 18 Creatinine 1.17 Est Cr Clr Drug Dosing 69.4 eGFR 53.42 BUN/Creatinine Ratio 15.4 Glucose 116 H POC Glucose 115 H Estimat Average Glucose 120 Hemoglobin A1c 5.8 H Calcium 8.8 Magnesium 1.4 L Total Bilirubin AST ALT Alkaline Phosphatase Troponin I High Sens 10.3 Total Protein Albumin Globulin Albumin/Globulin Ratio Lipase Urine Color Urine Appearance Urine pH Ur Specific [place] Urine Protein Urine Glucose (UA) Urine Ketones Urine Blood Urine Nitrite Urine Bilirubin Urine Urobilinogen Ur Leukocyte Esterase Urine Comment 11/20/24 11/20/24 11/20/24 07:53 12:02 17:01 WBC RBC Hgb Hct MCV MCH MCHC RDW Std Deviation RDW Coeff of Cher Plt Count MPV Immature Gran % (Auto) Neut % (Auto) Lymph % (Auto) [place] % (Auto) Eos % (Auto) Baso % (Auto) Neut # (Auto) Lymph # (Auto) [place] # (Auto) Eos # (Auto) Baso # (Auto) Immature Gran # (Auto) PT INR Sodium Potassium Chloride Carbon Dioxide Anion Gap BUN Creatinine Est Cr Clr Drug Dosing eGFR BUN/Creatinine Ratio Glucose POC Glucose 113 H 103 H 89 Estimat Average Glucose Hemoglobin A1c Calcium Magnesium Total Bilirubin AST ALT Alkaline Phosphatase Troponin I High Sens Total Protein Albumin Globulin Albumin/Globulin Ratio Lipase Urine Color Urine Appearance Urine pH Ur Specific [place] Urine Protein Urine Glucose (UA) Urine Ketones Urine Blood Urine Nitrite Urine Bilirubin Urine Urobilinogen Ur Leukocyte Esterase Urine Comment 11/20/24 11/21/24 11/21/24 20:46 05:20 08:00 WBC 5.12 RBC 3.88 L Hgb 10.9 L Hct 34.0 L MCV 87.6 MCH 28.1 MCHC 32.1 RDW Std Deviation 48.5 H RDW Coeff of Cher 15.1 H Plt Count 211 MPV 9.6 Immature Gran % (Auto) 0.2 Neut % (Auto) 67.5 Lymph % (Auto) 17.8 [place] % (Auto) 10.0 Eos % (Auto) 4.1 Baso % (Auto) 0.4 Neut # (Auto) 3.46 Lymph # (Auto) 0.91 L Riley # (Auto) 0.51 Eos # (Auto) 0.21 Baso # (Auto) 0.02 Immature Gran # (Auto) 0.01 PT 18.2 H INR 1.8 H Sodium 138 Potassium 4.2 Chloride 108 H Carbon Dioxide 23 Anion Gap 7 BUN 11 Creatinine 0.95 Est Cr Clr Drug Dosing 85.5 eGFR 68.59 BUN/Creatinine Ratio 11.6 Glucose 104 H POC Glucose 92 98 Estimat Average Glucose Hemoglobin A1c Calcium 8.3 L Magnesium Total Bilirubin AST ALT Alkaline Phosphatase Troponin I High Sens Total Protein Albumin Globulin Albumin/Globulin Ratio Lipase Urine Color Urine Appearance Urine pH Ur Specific [place] Urine Protein Urine Glucose (UA) Urine Ketones Urine Blood Urine Nitrite Urine Bilirubin Urine Urobilinogen Ur Leukocyte Esterase Urine Comment PG Care Time/CCT Total # of Minutes Spent Total Time Spent with Patient: Total time spent is greater than 50% in coordination of care (as documented) at patient's floor/unit and/or counseling patient: Coding Level of Care Code 82909 SUB INP/OBS CARE 2/35MIN Diagnoses Food impaction of esophagus T18.128A; [id number]
--- NOTE | 2024-11-21 09:25 | Gastroenterology Progress Note ---
Date of Service November 21, 2024 Assessment & Plan Admission and Anticipated Discharge Date Admission Date: November 19, 2024 Subjective Still with bright red blood per rectum. Denies any abdominal pain shortness of breath or chest pain Physical Exam Physical Exam: No acute distress Respiratory rate regular Cardiac rhythm regular Abdomen soft nontender Results & Data Results & Data Vital Signs (Past 12 Hours) Vital Signs Temp Pulse Pulse Resp BP Pulse Ox O2 Del Method 11/21/24 07:36 36.5 C 85 22 129/78 98 Room Air 11/21/24 07:20 79 11/21/24 02:41 36.3 C L 85 16 137/84 96 Room Air 11/20/24 23:00 83 11/20/24 21:57 36.8 C 87 18 125/64 94 Room Air Laboratory Results Laboratory Results - last 48 hr 11/19/24 11/20/24 11/20/24 19:06 01:32 02:30 WBC 7.56 RBC 4.72 Hgb 13.4 Hct 40.8 MCV 86.4 MCH 28.4 MCHC 32.8 RDW Std Deviation 46.5 H RDW Coeff of Cher 14.8 H Plt Count 292 MPV 9.5 Immature Gran % (Auto) 0.4 Neut % (Auto) 75.3 Lymph % (Auto) 14.2 [place] % (Auto) 7.9 Eos % (Auto) 1.9 Baso % (Auto) 0.3 Neut # (Auto) 5.70 Lymph # (Auto) 1.07 L [place] # (Auto) 0.60 H Eos # (Auto) 0.14 Baso # (Auto) 0.02 Immature Gran # (Auto) 0.03 PT 22.8 H INR 2.3 H Sodium 138 Potassium 3.7 Chloride 104 Carbon Dioxide 21 Anion Gap 13 H BUN 15 Creatinine 1.25 H Est Cr Clr Drug Dosing Not Reportable eGFR 49.34 BUN/Creatinine Ratio 12.0 Glucose 94 POC Glucose 112 H Estimat Average Glucose Hemoglobin A1c Calcium 9.5 Magnesium Total Bilirubin 0.4 AST 21 ALT 20 Alkaline Phosphatase 72 Troponin I High Sens 10.0 Total Protein 7.8 Albumin 3.9 Globulin 3.9 Albumin/Globulin Ratio 1.0 Lipase 48 Urine Color Yellow Urine Appearance Clear Urine pH 5.5 Ur Specific [place] > 1.045 H Urine Protein Negative Urine Glucose (UA) Negative Urine Ketones Negative Urine Blood Negative Urine Nitrite Negative Urine Bilirubin Negative Urine Urobilinogen Negative Ur Leukocyte Esterase Negative Urine Comment 11/20/24 11/20/24 11/20/24 05:25 05:26 05:45 WBC 9.32 RBC 4.23 Hgb 12.1 Hct 36.8 L MCV 87.0 MCH 28.6 MCHC 32.9 RDW Std Deviation 47.7 H RDW Coeff of Cher 14.9 H Plt Count 259 MPV 9.6 Immature Gran % (Auto) 0.3 Neut % (Auto) 80.9 Lymph % (Auto) 10.0 [place] % (Auto) 8.3 Eos % (Auto) 0.2 Baso % (Auto) 0.3 Neut # (Auto) 7.54 H Lymph # (Auto) 0.93 L [place] # (Auto) 0.77 H Eos # (Auto) 0.02 Baso # (Auto) 0.03 Immature Gran # (Auto) 0.03 PT 21.3 H INR 2.1 H Sodium 138 Potassium 4.6 D Chloride 107 Carbon Dioxide 23 Anion Gap 8 BUN 18 Creatinine 1.17 Est Cr Clr Drug Dosing 69.4 eGFR 53.42 BUN/Creatinine Ratio 15.4 Glucose 116 H POC Glucose 115 H Estimat Average Glucose 120 Hemoglobin A1c 5.8 H Calcium 8.8 Magnesium 1.4 L Total Bilirubin AST ALT Alkaline Phosphatase Troponin I High Sens 10.3 Total Protein Albumin Globulin Albumin/Globulin Ratio Lipase Urine Color Urine Appearance Urine pH Ur Specific [place] Urine Protein Urine Glucose (UA) Urine Ketones Urine Blood Urine Nitrite Urine Bilirubin Urine Urobilinogen Ur Leukocyte Esterase Urine Comment 11/20/24 11/20/24 11/20/24 07:53 12:02 17:01 WBC RBC Hgb Hct MCV MCH MCHC RDW Std Deviation RDW Coeff of Cher Plt Count MPV Immature Gran % (Auto) Neut % (Auto) Lymph % (Auto) [place] % (Auto) Eos % (Auto) Baso % (Auto) Neut # (Auto) Lymph # (Auto) [place] # (Auto) Eos # (Auto) Baso # (Auto) Immature Gran # (Auto) PT INR Sodium Potassium Chloride Carbon Dioxide Anion Gap BUN Creatinine Est Cr Clr Drug Dosing eGFR BUN/Creatinine Ratio Glucose POC Glucose 113 H 103 H 89 Estimat Average Glucose Hemoglobin A1c Calcium Magnesium Total Bilirubin AST ALT Alkaline Phosphatase Troponin I High Sens Total Protein Albumin Globulin Albumin/Globulin Ratio Lipase Urine Color Urine Appearance Urine pH Ur Specific [place] Urine Protein Urine Glucose (UA) Urine Ketones Urine Blood Urine Nitrite Urine Bilirubin Urine Urobilinogen Ur Leukocyte Esterase Urine Comment 11/20/24 11/21/24 11/21/24 20:46 05:20 08:00 WBC 5.12 RBC 3.88 L Hgb 10.9 L Hct 34.0 L MCV 87.6 MCH 28.1 MCHC 32.1 RDW Std Deviation 48.5 H RDW Coeff of Cher 15.1 H Plt Count 211 MPV 9.6 Immature Gran % (Auto) 0.2 Neut % (Auto) 67.5 Lymph % (Auto) 17.8 [place] % (Auto) 10.0 Eos % (Auto) 4.1 Baso % (Auto) 0.4 Neut # (Auto) 3.46 Lymph # (Auto) 0.91 L [place] # (Auto) 0.51 Eos # (Auto) 0.21 Baso # (Auto) 0.02 Immature Gran # (Auto) 0.01 PT 18.2 H INR 1.8 H Sodium 138 Potassium 4.2 Chloride 108 H Carbon Dioxide 23 Anion Gap 7 BUN 11 Creatinine 0.95 Est Cr Clr Drug Dosing 85.5 eGFR 68.59 BUN/Creatinine Ratio 11.6 Glucose 104 H POC Glucose 92 98 Estimat Average Glucose Hemoglobin A1c Calcium 8.3 L Magnesium Total Bilirubin AST ALT Alkaline Phosphatase Troponin I High Sens Total Protein Albumin Globulin Albumin/Globulin Ratio Lipase Urine Color Urine Appearance Urine pH Ur Specific [place] Urine Protein Urine Glucose (UA) Urine Ketones Urine Blood Urine Nitrite Urine Bilirubin Urine Urobilinogen Ur Leukocyte Esterase Urine Comment PG Care Time/CCT Total # of Minutes Spent Total Time Spent with Patient: Total time spent is greater than 50% in coordination of care (as documented) at patient's floor/unit and/or counseling patient: Coding
--- NOTE | 2024-11-21 11:25 | Hospitalist Progress Note ---
Date of Service November 21, 2024 Assessment & Plan (1) Food impaction of esophagus: Plan: 59-year-old female with past medical history significant for hypercholesteremia, prediabetes, CKD stage III, recurrent pulmonary embolism, hypertension, chronic diastolic CHF, venous insufficiency, venous stasis dermatitis, morbid obesity, chronic pain, iron deficiency anemia, adjustment disorder, history of esophageal stricture status post dilatation several years ago comes because of food impaction of esophagus and hematemesis. Patient today evening was eating hoagie which got stuck deep in her throat. She was able to vomit liquid at first then she had another episode of vomiting with soft blood tingeing as well as clumps of blood and she thinks she vomited all the food. Patient is on Coumadin but was held for last week for antibiotics for sores on her left lower extremities. She says the wounds are healed up. She completed antibiotic yesterday. And after this episode of vomiting patient felt left sided chest pain, abdominal pain, headache , dizziness and came to the ER. In the ER CT scan was done with IV and oral contrast which showed no definite leakage or pneumomediastinum but showed inflammatory/infectious esophagitis and also small volume left pleural effusion. ER talked with CT surgery at [place] [facility]. Silver and was recommended barium swallow test. To call back CT surgery if barium swallow shows anything or if anything changes. No antibiotics recommended at this time. Patient received pain medication. Currently feeling better. Headache improved. Abdominal pain and chest pain improved. Has mild some epigastric discomfort. Earlier had dizziness that improved. No more episodes of vomiting. No blurred vision. No runny nose no sore throat. No cough. No fevers. No shortness of breath. Currently no nausea. Normal bowel and bladder movements. Resting comfortably and hemodynamically stable. Sliding hiatal hernia with esophagitis Food impaction of esophagus Hx of oesophageal stricture and status post dilatation Status post vomiting and hematemesis with relief of impaction Hemoglobin stable at 13.4 .hemodynamics okay No more episodes of vomiting N.p.o., IV fluids, Protonix drip CT of the chest with oral contrast showed sliding hiatal hernia containing the fundus of the stomach. Oral contrast noted in the mid to distal esophagus without any evidence of obstruction. Concentric mucosal prominence throughout the thoracic esophagus is new from the previous examination. No definite leakage or pneumomediastinum. The appearance suggestive of developing hypertrophic changes or inflammatory esophagitis She has been feeling much better since admission Appreciate GI input and recommendationnot for any immediate EGD and the patient can be discharged Started on clears orally and will be advanced as tolerated Continue intravenous PPI and changed to oral from tomorrow Remains stable without any significant symptoms and tolerating clears orally Diet will be advanced and plan for her to go home this afternoon Obstructive sleep apnea CPAP nightly Diabetes Sliding scale Will monitor HbA1c levels-- 5.8 as of 11/20/2024 HESHAM on CKD stage III Baseline creatinine 1-1.1 Current creatinine 1.2 Holding lisinopril Follow repeat labs- kidney function is normalized and we can restart lisinopril on discharge She was advised to drink adequate amount of fluid orally HTN Holding lisinopril iv labetalol prn Remains borderline elevated at 143/83 Prolonged QTc Avoid QT prolonging drugs Follow repeat EKG Decreased in QT prolongation Chest pain Mostly from above Troponin okay Will follow repeat EKG and troponins No cardiac symptoms Chronic diastolic CHF Getting fluids Monitor for volume overload Hyperlipidemia Hold statin for now ,restart as soon as possible History of PE Hold Coumadin for now Restart when okay with GI INR is 1.8 and were advised to continue Coumadin and follow-up with Coumadin clinic Depression Holding bupropion for now DVT prophylaxis SCDs for now Disposition Med/telemetry Full code. Admission and Anticipated Discharge Date Admission Date: November 19, 2024 Subjective 11/20/2024 The patient was seen and examined in medical telemetry unit She has been feeling much better and denies any significant epigastric pain and does not have any nausea and/or vomiting 11/21/2024 The patient was seen and examined in medical telemetry unit She has been feeling much better and tolerating clears Diet will be advanced to full liquid and advance as tolerated likely be discharged this afternoon Review of Systems Review of Systems: All systems reviewed and are unremarkable except as noted below Physical Exam Physical Exam: Sitting on a chair without any acute distress Constitutional: well developed, well nourished, + ill appearing and + obese ENMT: external ear and nose normal, oropharynx normal Respiratory: no respiratory distress Auscultation: lungs clear to auscultation bilaterally Cardiovascular: Rate/Rhythm: regular rate and regular rhythm; not tachycardic Heart Sounds: normal S1 and normal S2; no murmur Extremities: + edema ( trace edema bilaterally) Gastrointestinal (Abdomen): Inspection/Auscultation: + abdomen distended and normal bowel sounds Percussion/Palpation: abdomen soft; abdomen nontender Neurologic: normal touch/pain/proprioception and moves all extremities; no focal motor deficits Psychiatric: A+Ox3, euthymic affect Lymphatic: no cervical or axillary lymphadenopathy Results & Data Results & Data Vital Signs (Past 12 Hours) Vital Signs Temp Pulse Pulse Resp BP Pulse Ox O2 Del Method 11/21/24 07:36 36.5 C 85 22 129/78 98 Room Air 11/21/24 07:20 79 11/21/24 02:41 36.3 C L 85 16 137/84 96 Room Air Laboratory Results Short CBC 11/21/24 Range/Units 05:20 WBC 5.12 (4.8-10.8) K/ul Hgb 10.9 L (12.0-16.0) g/dl Hct 34.0 L (37.0-47.0) % Plt Count 211 (130-400) K/uL BMP 11/21/24 05:20 Sodium 138 Potassium 4.2 Chloride 108 H Carbon Dioxide 23 BUN 11 Creatinine 0.95 Glucose 104 H Calcium 8.3 L Medications Administered Current Inpatient Medications Acetaminophen (Acetaminophen 325 Mg Tab) 325 mg PO QID PRN PRN Reason: Pain Stop: 12/20/24 14:36 Last Admin: 11/20/24 20:50 Dose: 325 mg Albuterol (Albuterol Hfa 8 Gm Inhaler) 2 puffs INH Q6H PRN PRN Reason: Shortness Of Breath Stop: 12/20/24 01:26 Bupropion HCl (Bupropion Sr 150 Mg Tabcr) 150 mg PO DAILY GEORGE Stop: 12/21/24 08:59 Last Admin: 11/21/24 08:21 Dose: 150 mg Cyanocobalamin (Cyanocobalamin (B-12) 500 Mcg Tablet) 500 mcg PO QAM GEORGE Stop: 12/21/24 08:59 Last Admin: 11/21/24 08:21 Dose: 500 mcg Dextrose (Dextrose 50% 50 Ml Syringe) 25 - 50 ml IV UD PRN; Protocol PRN Reason: Hypoglycemia Protocol Stop: 12/20/24 01:26 Duloxetine HCl (Duloxetine Hcl 60 Mg Cap) 60 mg PO QAM GEORGE Stop: 12/21/24 08:59 Last Admin: 11/21/24 08:21 Dose: 60 mg Glucagon (Glucagon For Inj 1 Mg Vial) 1 mg SQ UD PRN; Protocol PRN Reason: Hypoglycemia Protocol Stop: 12/20/24 01:26 Glucose (Glucose 40% Gel 15 Gm Tube) 15 - 30 gm PO UD PRN; Protocol PRN Reason: Hypoglycemia Protocol Stop: 12/20/24 01:26 Glucose (Glucose 10 Tab/Tube) 4 - 8 tab PO UD PRN; Protocol PRN Reason: Hypoglycemia Protocol Stop: 12/20/24 01:26 Hydromorphone HCl (Hydromorphone Inj 0.5 Mg/0.5 Ml Syr) 0.25 mg IV Q3H PRN PRN Reason: Mod-Sev Pain (Scale 4-10) Stop: 12/04/24 01:26 Hydroxyzine HCl (Hydroxyzine Hcl 25 Mg Tab) 25 mg PO HS GEORGE Stop: 12/20/24 20:59 Last Admin: 11/20/24 20:51 Dose: 25 mg Pantoprazole Sodium 40 mg/ (Dextrose) 100 mls @ 20 mls/hr IV Q5H GEORGE Stop: 12/20/24 01:26 Last Admin: 11/21/24 08:21 Dose: 8 mg/hr, 20 mls/hr Promethazine HCl (Phenergan) 12.5 mg in 50.5 mls @ 202 mls/hr IV Q6H PRN PRN Reason: Nausea And Vomiting Stop: 12/20/24 09:05 Insulin Aspart (Insulin Aspart Per Unit Charge) 0 units SC ACHS GEORGE Stop: 12/20/24 20:59 Last Admin: 11/21/24 08:51 Dose: Not Given Labetalol HCl (Labetalol Hcl Iv 5 Mg/Ml 20ml) 10 mg IV Q4H PRN PRN Reason: Hypertension Stop: 12/20/24 01:26 Lisinopril (Lisinopril 40 Mg Tab) 40 mg PO DAILY GEORGE Stop: 12/21/24 08:59 Last Admin: 11/21/24 08:21 Dose: 40 mg Miscellaneous (Carbohydrates For Hypoglycemia ) 15 - 30 gm PO UD PRN PRN Reason: Hypoglycemia Protocol Stop: 12/20/24 01:26 Nitroglycerin (Nitroglycerin Sl 0.4 Mg/Tab Tab) 0.4 mg SL Q5M PRN PRN Reason: Chest Pain Stop: 12/20/24 01:26 Rosuvastatin Calcium (Rosuvastatin Calcium 10 Mg Tab) 10 mg PO DAILY [facility] Stop: 12/21/24 08:59 Last Admin: 11/21/24 08:21 Dose: 10 mg Vitamin D (Cholecalciferol 25 Mcg (1000 Units) Tab) 50 mcg PO DAILY [facility] Stop: 12/21/24 08:59 Last Admin: 11/21/24 08:21 Dose: 50 mcg Warfarin Sodium (Warfarin Sod 5 Mg Tab) 5 mg PO DAILY@1600 [facility] Stop: 12/20/24 15:59 Last Admin: 11/20/24 17:04 Dose: 5 mg
[2024-11-21 11:40] VITALS: BP 111/74; RESP 18; TEMP 98.1; O2SAT 97
[2024-11-21 15:01] VITALS: PULSE 89
--- NOTE | 2024-11-21 16:36 | Discharge Summary ---
Date of Service November 21, 2024 Admission HPI Per Admitting Provider 59-year-old female with past medical history significant for hypercholesteremia, prediabetes, CKD stage III, recurrent pulmonary embolism, hypertension, chronic diastolic CHF, venous insufficiency, venous stasis dermatitis, morbid obesity, chronic pain, iron deficiency anemia, adjustment disorder, history of esophageal stricture status post dilatation several years ago comes because of food impaction of esophagus and hematemesis. Patient today evening was eating hoagie which got stuck deep in her throat. She was able to vomit liquid at first then she had another episode of vomiting with soft blood tingeing as well as clumps of blood and she thinks she vomited all the food. Patient is on Coumadin but was held for last week for antibiotics for sores on her left lower extremities. She says the wounds are healed up. She completed antibiotic yesterday. And after this episode of vomiting patient felt left sided chest pain, abdominal pain, headache , dizziness and came to the ER. In the ER CT scan was done with IV and oral contrast which showed no definite leakage or pneumomediastinum but showed inflammatory/infectious esophagitis and also small volume left pleural effusion. ER talked with CT surgery at [facility] and was recommended barium swallow test. To call back CT surgery if barium swallow shows anything or if anything changes. No antibiotics recommended at this time. Patient received pain medication. Currently feeling better. Headache improved. Abdominal pain and chest pain improved. Has mild some epigastric discomfort. Earlier had dizziness that improved. No more episodes of vomiting. No blurred vision. No runny nose no sore throat. No cough. No fevers. No shortness of breath. Currently no nausea. Normal bowel and bladder movements. Resting comfortably and hemodynamically stable. Past medical history. As mentioned above. Past surgical history EGD. Laparoscopic cholecystectomy. Left repair of knee cartilage. Left shoulder arthroscopy. Right wrist arthroscopy. Social history. No smoking. No alcohol use. No drug use. Family history. Maternal grandmother had breast cancer. Mother had hypertension. Admission Exam Per Admitting Provider Physical Exam: General- Not in distress Head- atraumatic Eyes- PERRL. ENT- oropharynx clear Neck- supple, no JVD. Lungs- clear to auscultation no wheezing or crackles. Heart- regular rhythm; no murmur, no gallop. Abdomen- normal bowel sounds, soft, nontender, no distension Extremities- mild pretibial edema, chronic skin changes seen Neuro- alert, oriented PERRL, no facial palsy; no dysarthria; moves extremities Principal Diagnosis Sliding hiatal hernia with esophagitis, Recent impacted food resolved throw vomiting, Esophageal stricture h/o dilatation Discharge Exam Sitting on a chair without any acute distress Constitutional well developed, well nourished, + ill appearing and + obese ENMT external ear and nose normal, oropharynx normal Respiratory no respiratory distress Auscultation: lungs clear to auscultation bilaterally Cardiovascular Rate/Rhythm: regular rate and regular rhythm; not tachycardic Heart Sounds: normal S1 and normal S2; no murmur Extremities: + edema ( trace edema bilaterally) Gastrointestinal (Abdomen) Inspection/Auscultation: + abdomen distended and normal bowel sounds Percussion/Palpation: abdomen soft; abdomen nontender Neurologic normal touch/pain/proprioception and moves all extremities; no focal motor deficits Psychiatric A+Ox3, euthymic affect Lymphatic no cervical or axillary lymphadenopathy Discharge Data Allergies Allergy/AdvReac Type Severity Reaction Status Date / Time No Known Allergies Allergy Verified 04/05/24 11:58 Consultations 11/19/24 23:43 ED Decision to Admit Stat 11/20/24 08:00 Consult Gastroenterology Routine Ordered Studies 11/19/24 19:57 CT chest diagnostic w con Stat Hospital Course (1) Food impaction of esophagus: 59-year-old female with past medical history significant for hypercholesteremia, prediabetes, CKD stage III, recurrent pulmonary embolism, hypertension, chronic diastolic CHF, venous insufficiency, venous stasis dermatitis, morbid obesity, chronic pain, iron deficiency anemia, adjustment disorder, history of esophageal stricture status post dilatation several years ago comes because of food impaction of esophagus and hematemesis. Patient today evening was eating hoagie which got stuck deep in her throat. She was able to vomit liquid at first then she had another episode of vomiting with soft blood tingeing as well as clumps of blood and she thinks she vomited all the food. Patient is on Coumadin but was held for last week for antibiotics for sores on her left lower extremities. She says the wounds are healed up. She completed antibiotic yesterday. And after this episode of vomiting patient felt left sided chest pain, abdominal pain, headache , dizziness and came to the ER. In the ER CT scan was done with IV and oral contrast which showed no definite leakage or pneumomediastinum but showed inflammatory/infectious esophagitis and also small volume left pleural effusion. ER talked with CT surgery at [facility] and was recommended barium swallow test. To call back CT surgery if barium swallow shows anything or if anything changes. No antibiotics recommended at this time. Patient received pain medication. Currently feeling better. Headache improved. Abdominal pain and chest pain improved. Has mild some epigastric discomfort. Earlier had dizziness that improved. No more episodes of vomiting. No blurred vision. No runny nose no sore throat. No cough. No fevers. No shortness of breath. Currently no nausea. Normal bowel and bladder movements. Resting comfortably and hemodynamically stable. Sliding hiatal hernia with esophagitis Food impaction of esophagus Hx of oesophageal stricture and status post dilatation Status post vomiting and hematemesis with relief of impaction Hemoglobin stable at 13.4 .hemodynamics okay No more episodes of vomiting N.p.o., IV fluids, Protonix drip CT of the chest with oral contrast showed sliding hiatal hernia containing the fundus of the stomach. Oral contrast noted in the mid to distal esophagus without any evidence of obstruction. Concentric mucosal prominence throughout the thoracic esophagus is new from the previous examination. No definite leakage or pneumomediastinum. The appearance suggestive of developing hypertrophic changes or inflammatory esophagitis She has been feeling much better since admission Appreciate GI input and recommendationnot for any immediate EGD and the patient can be discharged Started on clears orally and will be advanced as tolerated Continue intravenous PPI and changed to oral from tomorrow Remains stable without any significant symptoms and tolerating clears orally Diet will be advanced and plan for her to go home this afternoon Obstructive sleep apnea CPAP nightly Diabetes Sliding scale Will monitor HbA1c levels-- 5.8 as of 11/20/2024 HESHAM on CKD stage III Baseline creatinine 1-1.1 Current creatinine 1.2 Holding lisinopril Follow repeat labs- kidney function is normalized and we can restart lisinopril on discharge She was advised to drink adequate amount of fluid orally HTN Holding lisinopril iv labetalol prn Remains borderline elevated at 143/83 Prolonged QTc Avoid QT prolonging drugs Follow repeat EKG Decreased in QT prolongation Chest pain Mostly from above Troponin okay Will follow repeat EKG and troponins No cardiac symptoms Chronic diastolic CHF Getting fluids Monitor for volume overload Hyperlipidemia Hold statin for now ,restart as soon as possible History of PE Hold Coumadin for now Restart when okay with GI INR is 1.8 and were advised to continue Coumadin and follow-up with Coumadin clinic Depression Holding bupropion for now DVT prophylaxis SCDs for now Disposition Med/telemetry Full code. Total Time Total Time Spent Total Time Spent (In Minutes): 35 Minutes Discharge Plan Discharge Items Patient Disposition: Home - Self-Care Reason For Visit: FOOD IMPACTION, HEMATEMESIS Discharge Diagnosis: Sliding hiatal hernia with esophagitis, Recent impacted food resolved throw vomiting, Esophageal stricture h/o dilatation Condition on Discharge: Good Activity: Resume your previous activity Non-emergency contact: Primary Care Provider Call non-emergency contact if: you have any medication questions and your symptoms worsen Follow-up/Referrals: Julita Porter, DO [Primary Care Provider] - ( Your doctor's office will give you a call tomorrow with an appointment within 7 days) Diet: Carb Consistent or DM2 Diet Texture: Easy to Chew Addtl Attending Provider Instructions: Please take precautions to avoid falls Take your medications as advised Please keep appointments with your healthcare providers You will need GI follow-up of for an EGD and also colonoscopy down the line Pending Studies at Discharge: No Stand-Alone Forms: [employer], Smoking Cessation Medications and DC Order Prescriptions: New pantoprazole [Protonix] 40 mg tablet,delayed release (DR/EC) 40 mg PO BID Qty: 60 0RF Continued bupropion HCl [Wellbutrin SR] 150 mg tablet sustained-release 12 hr 150 mg PO DAILY albuterol sulfate 90 mcg/actuation HFA aerosol inhaler 2 puff inhalation Q6H PRN (Reason: SOB) naltrexone 50 mg tablet 25 mg PO BID metformin 850 mg tablet 850 mg PO BID rosuvastatin 10 mg tablet 10 mg PO DAILY mecobalamin (vitamin B12) 500 mcg tablet,chewable 500 mcg PO QAM cholecalciferol (vitamin D3) 50 mcg (2,000 unit) capsule 50 mcg PO DAILY acetaminophen [Tylenol] 325 mg tablet 325 mg PO QID PRN (Reason: Pain) warfarin 5 mg Tablet 5 mg PO DAILY@1600 Qty: 30 2RF famotidine 20 mg tablet 20 mg PO QAM lisinopril 40 mg tablet 40 mg PO DAILY hydroxyzine pamoate 25 mg capsule 25 - 50 mg PO HS duloxetine 60 mg capsule,delayed release(DR/EC) 60 mg PO QAM Discharge Orders: Discharge Order (Routine); Ordered 11/21/24 Ordered By: Terra Nicolas Admission Data Admit Date/Time: 11/19/24 23:55 Attending Provider: Terra Nicolas Admit Provider: Kendall Rees Primary Care Provider: Julita Porter Other Providers: Kendall Rees; Nawaf Vidal Jr Other Interventions: Discharge Summary Assessment (RN) Last Done: 11/21/24 14:54
--- NOTE | 2024-11-22 14:18 | Electrocardiogram Report ---
Test Reason : Blood Pressure : */* mmHG Vent. Rate : 81 BPM Atrial Rate : 81 BPM P-R Int : 152 ms QRS Dur : 78 ms QT Int : 384 ms P-R-T Axes : 62 35 38 degrees QTcB Int : 446 ms Normal sinus rhythm Low voltage QRS Diffuse Minor Nonspecific ST abnormality Abnormal ECG When compared with ECG of 20-Nov-2024 06:20, No significant change was found Confirmed by Hemant Van ([id number]) on 11/22/2024 2:17:53 PM Referred By: REFERRED SELF Confirmed By: Hemant Van
== END 2024-11-21 16:15 | disposition home or self-care (01) ==
LOC: ED 18:47 → 2N 23:55